=== PATIENT | female | born 1945 | race Caucasian/White ===

== ENCOUNTER → 2016-09-02 | Outpatient (CLI) | payer BC ==
[~2016-09-02] MED LIST: ATV1 PO; EFFSR75 PO; IMD/2 PO; LEVO88TA PO; MULTTAB58 PO; VSC/5 PO; [UNRECOGNIZED DRUG - CODE] PO
== END | disposition home or self-care (01) ==
LOC: C.LABSPEC 13:49
PROVIDERS: ATTEND Surgery
DX: C18.1 Malignant neoplasm of appendix (principal)

== ENCOUNTER → 2016-10-27 | Outpatient (CLI) | payer BC ==
--- NOTE | 2016-10-27 12:47 | MAMMOGRAPHY REPORT ---
BILATERAL DIGITAL SCREENING MAMMOGRAM WITH CAD: 10/27/2016 CLINICAL HISTORY: Routine screening examination. TECHNIQUE: Bilateral CC and MLO views were obtained. Current study was also evaluated with a Comput er Aided Detection (CAD) system. COMPARISON: Comparison is made to exams dated: 10/30/2015 mammogram, 05/06/2016 mammogram, 10/24/2015 mammogram - [facility], 07/15/2010 mammogram - [facility], and 10/19/2013 mammo gram - [facility]. BREAST COMPOSITION: The tissue of both breasts is almost entirely fatty. FINDINGS: There are stable grouped punctate densities in the superior posterior right breast, though t to be related to prior Mediport catheter hub. There are scattered stable benign coarse calcificat ions throughout the left breast. A stable circumscribed sub-centimeter mass in the anterior left br east. No new suspicious mass, architectural distortion or cluster of microcalcifications is seen. IMPRESSION: ACR BI-RADS CATEGORY 1: NEGATIVE There is no mammographic evidence of malignancy. A 1 year screening mammogram is recommended. The p atient will receive written notification of the results. Approximately 10% of breast cancers are not detected with mammography. A negative mammographic repor t should not delay biopsy if a clinically suggestive mass is present. Bryanna Meza M.D. ay/:10/27/2016 12:08:51 Chemical Cell Changer: Deja JAMESON)(Sarah Beth), [facility] letter sent: Normal 1/2 BI-RADS Code: ACR BI-RADS Category 1: Negative
== END | disposition home or self-care (01) ==
LOC: C.MAMM 10:24
PROVIDERS: ATTEND Family Medicine
DX: Z12.31 Encounter for screening mammogram for malignant neoplasm of breast (principal)

== ENCOUNTER → 2017-02-23 | Outpatient (CLI) | payer BC ==
--- NOTE | 2017-02-23 11:02 | DIAGNOSTIC IMAGING REPORT ---
GI SERIES W/AIR ROUTINE CLINICAL HISTORY: 71-year-old female with epigastric pain, EGD with folded stomach, clinical concern for volvulus. TECHNIQUE: A standard air contrast upper GI series was performed. Spot images of the esophagus and stomach were obtained in multiple obliquities both upright and prone. COMPARISON: Correlation made to CT from 2014. FINDINGS: The patient swallowed barium without difficulty. The esophagus is structurally normal without evidence of intrinsic or extrinsic mass. The esophageal mucosal pattern is normal. Gastroesophageal junction located below the diaphragm. No evidence of a hiatal hernia. No gastroesophageal reflux was observed. The gastroesophageal junction distends normally. Oral contrast passes freely to the small bowel without evidence of obstruction. The fundus and pylorus are located normally. Due to early opacification of small bowel, the gastric antrum is not well evaluated. However, the stomach is not dilated an has a normal configuration. No gross evidence of a filling defect within the gastric lumen. The duodenal bulb and sweep are unremarkable. Proximal small bowel normal-appearing. No bowel obstruction. Fluoroscopy time: 3.6 minutes Fluoroscopic images: 28 IMPRESSION: 1. No evidence of gastric volvulus or gastric outlet obstruction. No bowel obstruction. Electronically signed by: Kelvin Urena M.D. 02/23/2017 11:01 AM Dictated Date/Time: 02/23/2017 10:53 AM
== END | disposition home or self-care (01) ==
LOC: C.RAD 08:56
PROVIDERS: ATTEND Internal Medicine Gastroenterology
DX: R10.13 Epigastric pain (principal)

== ENCOUNTER → 2017-05-04 | Outpatient (CLI) | payer BC ==
[~2017-05-04] MED LIST changes: +OPTIRAY 320 IV PRN
--- NOTE | 2017-05-04 14:54 | DIAGNOSTIC IMAGING REPORT ---
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 Subsequent treatment strategy. History of appendiceal carcinoma. COMPARISON: CT abdomen and pelvis 10/23/2014 TECHNIQUE: Multiple axial CT images of the abdomen and pelvis were obtained following the intravenous administration of 119 mL Optiray 320. Oral contrast was also administered. A dose lowering technique was used consistent with the principals of EDWIN. FINDINGS: Subsegmental consolidation with air bronchograms noted within the right middle lobe which is chronic. No endobronchial mass identified. No pneumoperitoneum identified. The imaged inferior cardiac chambers are mildly enlarged. There is decreased attenuation of the liver suggesting fatty infiltration. Multiple low attenuating lesions of the liver are again seen which are unchanged from comparison suggesting cysts. Prior splenectomy and cholecystectomy. The adrenal glands are unremarkable. Multifocal rectal thickening involves left greater than right kidneys. Apparent cyst of the interpolar left kidney is seen, 7 mm. 2 mm nonobstructing calculus is seen within the superior pole right kidney. Ureters are unremarkable. Urinary bladder is partially collapsed. Prior hysterectomy. Abdominal aorta is normal in both course and caliber. No bulky retroperitoneal adenopathy identified. There are multiple postsurgical changes of the bowel with interval removal of the cystic peritoneal lesions seen on comparison. There is no bowel obstruction or focal bowel wall thickening. Scattered nonspecific mildly prominent nonenlarged mesenteric lymph nodes are seen measuring up to 6 mm in short axis. There is a 2.4 x 3.0 cm cystic lesion noted within the lesser sac near the gastrohepatic ligament on image 135 within the region of the previously noted 5.9 cm cystic lesion. Additional cystic focus measuring up to 2.0 cm is noted near the steff hepatis knee were there was a 5.1 cm cystic lesion noted. Lastly, a 2.0 cm cystic lesion seen on image 163 is noted which appears to be based on the peritoneum on the right midabdomen. This lesion is new from comparison. Soft tissues are unremarkable. No suspicious lytic or blastic bony lesions are identified. Multilevel severe degenerative changes are seen. Approximately 40% anteriorly compression deformity is seen within the T10 vertebral body with additional compression deformities of T7, T8 and T12, unchanged from comparison. IMPRESSION: 1. Extensive postsurgical changes throughout the abdomen and pelvis with interval removal of several of the previously noted cystic lesions throughout the abdomen. Residual or new cystic lesions are seen within the upper abdomen as described above measuring up to 3.0 cm with new 2.0 cm peritoneal lesion of the right midabdomen. These lesions are very suspicious for metastatic peritoneal implants. 2. No bowel obstruction. 3. Scattered mildly prominent nonenlarged mesenteric lymph nodes are nonspecific. Attention at follow-up recommended. 4. 2 mm nonobstructing calculus of the superior pole right kidney. The above report was generated using voice recognition software. It may contain grammatical, syntax or spelling errors. Electronically signed by: Vinnie Thapa M.D. 05/04/2017 2:53 PM Dictated Date/Time: 05/04/2017 2:37 PM
--- NOTE | 2017-05-04 14:55 | DIAGNOSTIC IMAGING REPORT ---
CHEST CT WITH CONTRAST CT DOSE: 1169.06 mGycm HISTORY: MUCINOUS ADENOCARCINOMA GASTROINTESTINAL TRACT TECHNIQUE: Multiaxial CT images of the chest were performed following the intravenous administration of contrast. A dose lowering technique was utilized adhering to the principles of ALARA. COMPARISON: Chest CTA 06/15/2016. FINDINGS: The central airways remain patent. No pleural effusions. No pneumothorax. Small linear scarlike density within the left lung apex. Stable 2 mm subpleural nodular density within the right lung apex. Elevation of the right hemidiaphragm with partial atelectasis of the right middle lobe, unchanged. Stable 2 mm nodule within the right lower lobe on image 112. No new or suspicious pulmonary nodules identified. No suspicious lytic or blastic osseous lesions. Stable hypodense lesion within the left hepatic lobe. The adrenal glands are within normal limits. Stable 12 mm left subdiaphragmatic soft tissue nodule. The spleen appears to be surgically absent. Partially visualized perihepatic cystic lesions are better appreciated on the same day abdomen and pelvis CT. The dominant lesion adjacent to the left hepatic lobe and stomach measures 3.2 cm. There is a second 2.4 cm lesion seen at the falciform ligament. Small thyroid nodules. No mediastinal or hilar lymphadenopathy. The central pulmonary arteries are patent. Normal caliber thoracic aorta. IMPRESSION: 1. No evidence for metastatic disease within the chest. 2. Low density upper abdominal masses are better appreciated on the same day abdomen and pelvis CT. These likely represent areas of metastatic disease. 3. No significant change in the 12 mm left subdiaphragmatic soft tissue nodule. This could represent splenic tissue or an additional metastatic deposit. Electronically signed by: Abraham Purdy M.D. 05/04/2017 2:53 PM Dictated Date/Time: 05/04/2017 2:43 PM
== END | disposition home or self-care (01) ==
LOC: C.CTS 13:29
PROVIDERS: ATTEND Nurse Practitioner Family
DX: C26.0 Malignant neoplasm of intestinal tract, part unspecified (principal); R19.07 Generalized intra-abdominal and pelvic swelling, mass and lump; N20.0 Calculus of kidney; Z98.890 Other specified postprocedural states

== ENCOUNTER → 2017-08-16 | Outpatient (CLI) | payer BC ==
[~2017-08-16] MED LIST changes: -OPTIRAY 320 IV PRN
--- NOTE | 2017-08-16 16:03 | DIAGNOSTIC IMAGING REPORT ---
L-SPINE MIN 4 VIEWS ROUTINE CLINICAL HISTORY: BACK PAIN COMPARISON STUDY: CT scan dated 06-25 FINDINGS: There are extensive postsurgical changes present with multiple bowel suture lines. There is a lumbar dextroscoliosis. There are moderate multilevel degenerative changes present. There is a mild superior endplate L4 deformity which is felt to be old. There is a grade 1 spinal listhesis of L5 on S1. Multiple thoracic compression deformities are visualized. These are felt to be old. IMPRESSION: 1. No acute fractures 2. Multilevel degenerative change 3. Old mild superior endplate L4 compression deformity with marked disc space narrowing at the L3-4 level 4. Multiple old thoracic vertebral body compression deformities Electronically signed by: Justice Mcclure M.D. 08/16/2017 4:02 PM Dictated Date/Time: 08/16/2017 4:01 PM
== END | disposition home or self-care (01) ==
LOC: C.RAD1850 15:25
PROVIDERS: ATTEND Family Medicine
DX: M54.5 Low back pain (principal); M89.8X8 Other specified disorders of bone, other site; M51.36 Other intervertebral disc degeneration, lumbar region

== ENCOUNTER → 2017-10-26 | Outpatient (CLI) | payer BC ==
[~2017-10-26] MED LIST changes: +OPTIRAY 320 IV PRN
--- NOTE | 2017-10-26 15:10 | DIAGNOSTIC IMAGING REPORT ---
CHEST CT WITH CONTRAST CT DOSE: 990.19 mGy.cm HISTORY: Follow-up study in a patient with history of appendiceal carcinoma APPENDIX CA TECHNIQUE: Multiaxial CT images of the chest were performed following the intravenous administration of contrast. A dose lowering technique was utilized adhering to the principles of ALARA. COMPARISON: CT chest 05/04/2017, CT abdomen and pelvis of same day FINDINGS: Thyroid is heterogeneous with a 1.3 cm nodule seen within the region of the anterior right thyroid lobe containing adjacent punctate calcifications. There is no pathologic adenopathy about the chest. Heart is normal in size without pericardial effusion. Thoracic aorta is normal in both course and caliber without aneurysm or dissection. The imaged great vessels appear to be patent. The pulmonary arterial tree is unremarkable. Mild upper lobe predominant centrilobular emphysema. No pneumothorax or pleural effusion. There is mild dependent subsegmental bibasilar atelectasis. Linear subsegmental opacities of the inferior segment lingula and right middle lobe suggest areas of scarring/atelectasis. Indeterminate 3 mm pleural-based nodule of the lateral basal left lower lobe, image 1 series 4 appears unchanged. 2 mm solid nodule of the apical segment right upper lobe is also unchanged. 2 mm nodule of the right middle lobe, image 133 series 4 is stable. No new or suspicious pulmonary nodules identified. The central airways appear patent. Several low attenuating lesions of the upper abdomen are seen with a 3.3 cm lesion adjacent to the gastrohepatic ligament and a 2.2 cm lesion adjacent to the falciform ligament, unchanged. 12 mm left subdiaphragmatic lesion is also noted. Soft tissues are within normal limits. Unchanged sclerotic lesion about the right humeral head. No new suspicious bony lesions identified. Remote compression deformities about the thoracic spine. IMPRESSION: 1. Mild emphysema without acute intrathoracic abnormality identified. 2. No pathologic adenopathy or evidence of intrathoracic metastasis. 3. A few scattered solid nodules of the bilateral lungs measuring up to 4 mm appear unchanged from study dated 05/04/2017. 4. Low attenuating lesions of the upper abdomen are again noted, further evaluated and described on CT abdomen and pelvis study of same day. Electronically signed by: Vinnie Thapa M.D. 10/26/2017 3:09 PM Dictated Date/Time: 10/26/2017 3:00 PM
--- NOTE | 2017-10-26 15:15 | DIAGNOSTIC IMAGING REPORT ---
CT ABD/PELVIS IV AND ORAL CONT CLINICAL HISTORY: CANCER OF THE APPENDIX COMPARISON STUDY: 06-25 TECHNIQUE: Following the IV administration of 94 mL of Optiray-320, CT scan of the abdomen and pelvis was performed from the lung bases to the proximal femurs. Images are reviewed in the axial, sagittal, and coronal planes. IV contrast was administered without complication. A dose lowering technique was utilized adhering to the principles of ALARA. CT DOSE: FINDINGS: Lower chest: There are right middle lobe atelectatic changes. There are no significant pleural effusions. Liver: There is an 11 mm left lobe hypodensity similar to the prior study. There is a 24 mm left lobe hypodensity abutting the gallbladder fossa. There is an additional 19 mm hypodense/cystic lesion within the steff hepatis abutting the liver. Gallbladder: Surgically absent Spleen: Presumed surgically absent Pancreas: Unremarkable. Adrenal glands: Unremarkable. Kidneys: There is symmetric renal cortical enhancement. The kidneys are normal in size without hydronephrosis. There is a punctate upper pole right renal calculus. Bowel: There are no transition zones indicate bowel obstruction. Postsurgical changes are present within the rectosigmoid junction. The appendix is surgically absent. There are postsurgical changes involving the stomach. There is an area of bowel wall thickening within the anterior central abdomen at the level of a small bowel anastomosis. Peritoneum: There is a 13 mm left-sided subdiaphragmatic nodule which remain stable. There is an enlarging 42 mm hypodense mass in the region the gastrohepatic ligament. Vasculature: The abdominal aorta is normal in course and caliber. Adenopathy: There is an 11 mm soft tissue nodule located in the midline medially posterior to the peritoneum. This may represent an enlarged lymph node. There is a mildly enlarged right-sided mesenteric lymph node measuring 14 mm. Pelvic viscera: The uterus appears surgically absent Skeletal structures: No destructive osseous lesions are seen. IMPRESSION: 1. No evidence of bowel obstruction. No evidence of free air 2. Extensive postsurgical changes 3. Area of bowel wall thickening involving an anterior mid abdominal small bowel anastomosis 4. Enlarging hypodense/cystic mass in the region of the gastrohepatic ligament measuring 42 mm 5. Hypodense/cystic lesions within the liver and steff hepatis appear more conspicuous. 6. Stable left subdiaphragmatic nodule 7. Stable minimally enlarged mesenteric/peritoneal lymph nodes 8. The above findings indicate slight progression in the patient's metastatic disease Electronically signed by: Justice Mcclure M.D. 10/26/2017 3:13 PM Dictated Date/Time: 10/26/2017 3:00 PM
== END | disposition home or self-care (01) ==
LOC: C.CTS 12:57
PROVIDERS: ATTEND Surgery
DX: K63.89 Other specified diseases of intestine (principal); R19.07 Generalized intra-abdominal and pelvic swelling, mass and lump; K76.89 Other specified diseases of liver; R91.8 Other nonspecific abnormal finding of lung field; Z98.890 Other specified postprocedural states

== ENCOUNTER 2017-11-12 12:05 | Emergency (ER) | payer BC ==
[~2017-11-12] VITALS: Ht 160 cm; Wt 79.9 kg
[~2017-11-12 12:05] MED LIST changes: -OPTIRAY 320 IV PRN
[2017-11-12 12:12] VITALS: TEMP 36.5
[2017-11-12] MEDS ORDERED: ONDANSETRON INJ 2 MG/ML 2 ML VIAL IV STA ×3 (13:11→22:59)
[2017-11-12] MEDS ORDERED: SODIUM CHLORIDE 0.9% 1000ML 1,000 ML IV STA ×3 (13:11→21:47)
[2017-11-12 13:14] VITALS: Ht 160 cm; Wt 79.9 kg
--- NOTE | 2017-11-12 13:16 | EMERGENCY ROOM VISIT NOTE ---
History Report prepared by Cirilo: Randy Villegas Under the Supervision of: Dr. Sina Buckner D.O. First contact with patient: 13:06 Chief Complaint: ABDOMINAL PAIN Stated Complaint: STOMACH PAIN, SENT BY DR Seo Triage Summary: triage note: pt reports that pt has had abd pain since last night. pt reports nausea. 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 She states that at the same time, she also started getting some nausea, and episodes of vomiting. The patient says that she has been coughing as well. She adds that she has been getting winded when she walks. Per the patient's , the patient was seen by Dr. Alva (her primary care physician) this morning, and was told to bring the patient here for concern of possible UTI and dehydration. The patient adds that she started having diarrhea this morning. She denies any blood in her vomit, blood in her stool, or burning with urination. She notes that her legs have been restless, but she denies any leg pain or swelling. The patient denies any fevers. Per the patient's , the patient only has 60% of her bowel. Source of History: patient, spouse/significant other Onset: 1700 yesterday Position: abdomen Quality: other (pain) Timing: other (persistent) Associated Symptoms: + cough, + SOB, + nausea, + vomiting (no blood), + hematochezia, + diarrhea, No fevers, No urinary symptoms Note: Denies leg pain or swelling but notes restlessness. Review of Systems See HPI for pertinent positives & negatives. A total of 10 systems reviewed and were otherwise negative. Past Medical & Surgical Medical Problems: (1) Appendiceal carcinoid tumor (2) Benign hypertension (3) Chemotherapy adverse reaction (4) Depression (5) Rios Catheter (6) Hysterectomy Family History No pertinent family history Social History Smoking Status: Never Smoker Alcohol Use: none Marital Status: Housing Status: lives with family Current/Historical Medications Scheduled Hyoscyamine Sulfate (Levsin), 0.125 MG PO QID Levothyroxine Sodium (Levothyroxine Sodium), 1 TAB PO DAILY Mirabegron (Myrbetriq Er), 1 TAB PO DAILY Venlafaxine Hcl (Effexor), 2 TAB PO BID Scheduled PRN Clonazepam (Clonazepam), 1 TAB PO HS PRN for Anxiety/Agitation Lorazepam (Lorazepam), 1 TAB PO BID PRN for Anxiety/Agitation Allergies Coded Allergies: Oxycodone (Unverified Allergy, Intermediate, SHORTNESS OF BREATH, 11/12/17) hallucinations Ethanol (Verified Adverse Reaction, Intermediate, hallucinate, 11/12/17) Opium (Verified Adverse Reaction, Intermediate, hallucinate, 11/12/17) Physical Exam Vital Signs Date Time Temp Pulse Resp B/P (MAP) Pulse Ox O2 Delivery O2 Flow Rate FiO2 11/13/17 11:00 69 18 159/97 98 11/13/17 08:53 62 20 155/88 97 Nasal Cannula 2.0 11/13/17 08:01 70 17 170/104 100 Room Air 11/13/17 07:05 72 11/13/17 07:01 80 18 156/97 98 Oxymask 2.0 11/13/17 06:30 81 15 99 Oxymask 2.0 11/13/17 06:01 84 15 154/95 87 11/13/17 06:01 154/95 11/13/17 06:00 88 16 11/13/17 05:30 73 17 11/13/17 05:01 140/91 11/13/17 05:00 75 16 11/13/17 04:30 82 19 91 Nasal Cannula 2.0 11/13/17 04:01 153/101 11/13/17 04:00 81 18 11/13/17 03:30 79 15 99 Nasal Cannula 2.0 11/13/17 03:22 67 11/13/17 03:01 151/84 11/13/17 03:00 82 19 149/87 90 Room Air 11/13/17 02:36 73 20 91 Room Air 11/13/17 02:31 149/83 11/13/17 02:06 70 18 93 Room Air 11/13/17 02:01 178/101 11/13/17 01:36 71 16 91 Room Air 11/13/17 01:31 135/94 11/13/17 00:36 72 16 92 Room Air 11/13/17 00:31 182/98 11/13/17 00:06 84 21 91 Room Air 11/13/17 00:01 179/107 11/12/17 23:46 71 18 91 Room Air 11/12/17 23:31 171/127 11/12/17 23:16 82 16 11/12/17 23:05 81 11/12/17 23:01 175/109 11/12/17 22:46 81 19 97 Room Air 11/12/17 22:41 82 15 95 Room Air 11/12/17 22:31 179/106 11/12/17 22:01 156/112 11/12/17 21:41 65 15 92 Room Air 11/12/17 21:36 67 16 92 Room Air 11/12/17 21:31 164/106 11/12/17 21:01 153/102 11/12/17 20:36 87 16 92 Room Air 11/12/17 20:31 165/109 11/12/17 20:10 78 17 96 Room Air 11/12/17 20:01 148/98 11/12/17 19:56 74 11/12/17 19:31 161/109 11/12/17 19:10 84 13 96 Room Air 11/12/17 19:09 83 16 176/99 96 Room Air 11/12/17 17:55 75 96 11/12/17 17:50 75 95 11/12/17 17:45 82 95 11/12/17 17:20 19 11/12/17 17:15 79 27 94 11/12/17 17:10 74 16 90 11/12/17 17:05 72 21 93 11/12/17 17:01 171/103 11/12/17 17:00 71 24 87 11/12/17 16:55 68 26 93 18 16:50 68 15 90 18 16:45 70 18 92 18 16:40 69 19 94 18 16:35 68 25 93 18 16:31 172/95 18 16:30 70 24 93 18 16:25 78 29 93 18 16:20 75 29 92 11/12/17 16:15 78 23 165/94 94 18 16:10 73 18 94 11/12/17 16:05 75 19 93 11/12/17 16:00 76 28 95 11/12/17 15:55 84 20 97 11/12/17 15:10 75 22 95 11/12/17 15:05 85 19 96 11/12/17 14:50 66 18 93 11/12/17 14:35 66 16 93 11/12/17 14:20 70 34 97 11/12/17 14:06 72 11/12/17 14:05 70 25 97 11/12/17 13:50 68 20 96 11/12/17 13:37 141/93 11/12/17 13:35 76 20 11/12/17 13:20 138/91 11/12/17 13:19 85 20 138/91 97 Room Air 11/12/17 12:12 36.5 93 18 91/63 97 Room Air Physical Exam GENERAL: Patient is awake, alert, mildly anxious appearing. EYES: The conjunctivae are clear. The pupils are round and reactive. EARS, NOSE, MOUTH AND THROAT: The nose is without any evidence of any deformity. Mucous membranes are dry tongue is midline NECK: The neck is nontender and supple. RESPIRATORY: Normal respiratory effort is noted there is no evidence of wheezing rhonchi or rales CARDIOVASCULAR: Heart sounds were tachycardic but regular. No definite murmur was noted to auscultation. GASTROINTESTINAL: The abdomen is moderately distended and diffusely tender. No guarding or rigidity noted. BACK: There is bilateral CVA tenderness to percussion but no midline tenderness. MUSCULOSKELETAL/EXTREMITIES: There is no evidence of gross deformity full range of motion is noted in the hips and shoulders SKIN: There is no pedal edema noted. NEUROLOGIC: Patient is awake alert and oriented x3. Medical Decision & Procedures ER Provider Diagnostic Interpretation: Radiology results as stated below per my review and radiologist interpretation: CHEST ONE VIEW PORTABLE CLINICAL HISTORY: 72 years-old Female presenting with EVALUATE ALTERED MENTAL STATUS/WEAKNESS. TECHNIQUE: Portable upright AP view of the chest was obtained. COMPARISON: 06/15/[address] from 10/26/2017. FINDINGS: The patient is MOZAMBICAN rotated. Atherosclerosis of the aortic arch. Cardiac silhouette normal in size allowing for rotation. Chronic elevation of the right hemidiaphragm with chronic right basilar bandlike opacities. No new focal opacity. No large effusion or pneumothorax. Stippled calcification again noted in the right humeral neck, possibly a chondroid lesion. This is unchanged from prior. Degenerative changes of the spine. Cholecystectomy clips noted. IMPRESSION: 1. No acute cardiopulmonary disease. 2. Chronic right basilar atelectasis or scarring. Electronically signed by: Kelvin Urena M.D. 11/12/2017 2:15 PM Dictated Date/Time: 11/12/2017 2:13 PM KUB HISTORY: Vomiting. COMPARISON: Chest and abdominal series 12/30/2014. Abdomen and pelvis CT 10/26/2017. FINDINGS: Cholecystectomy. Scattered areas of an anastomotic suture material within the abdomen and pelvis consistent with postoperative change. Distended gas-filled loops of small bowel within the mid and left abdomen. These measure up to 5.7 cm in diameter. Gas and stool remains within the colon. No renal calculi. No ureteral calculi. No pneumoperitoneum or pneumatosis. IMPRESSION: Distended gas-filled loops of small bowel within the abdomen. This is worrisome for a small bowel obstruction. Electronically signed by: Abraham Purdy M.D. 11/12/2017 2:17 PM Dictated Date/Time: 11/12/2017 2:15 PM ABD/PELVIS IV CONTRAST ONLY CLINICAL HISTORY: 72 years-old Female presenting with possible obstruction, cancer of the appendix. TECHNIQUE: Multidetector CT of the abdomen and pelvis was performed after the administration of intravenous contrast. IV contrast: 23 mL of Optiray 320. A dose lowering technique was used consistent with the principles of ALARA (as low as reasonably achievable). COMPARISON: 10/26/2017. CT DOSE (mGy.cm): The estimated cumulative dose is 994.54 mGycm. FINDINGS: Sales Route Driver topogram: Cholecystectomy clips noted. Lung bases: Minimal basilar opacities, likely atelectasis. Normal heart size. No pericardial or pleural effusion. Liver: Normal morphology. Suggestion of hepatic steatosis. Several hypodense hepatic lesions noted in the medial left hepatic lobe, unchanged from prior and indeterminate. Patent hepatic vasculature. Biliary: Mild biliary ductal prominence likely a reservoir effect in the post cholecystectomy state. Gallbladder surgically absent. Pancreas: Mild parenchymal atrophy of the residual pancreatic head with postsurgical changes of distal pancreatectomy. Spleen: Surgically absent. Adrenal glands: Normal. Kidneys and ureters: Multifocal cortical atrophy suggested. Nonobstructing punctate calculus at the upper pole the right kidney. Mild to moderate pelvocaliectasis, new from prior. Bilateral ureters are mildly dilated to the level of the mid ureter. Bladder: Distended. Pelvic organs: Uterus surgically absent. No adnexal masses. Bowel: Moderate stool burden in the rectum. A colocolonic anastomosis is noted at the upper rectum. Mild stool burden throughout the remaining colon. Postsurgical changes of the cecum. The distal small bowel is decompressed. An enterocolonic anastomosis may be present. Postsurgical changes of the small bowel mesentery. A gastrojejunostomy is evident with post surgical changes of distal gastrectomy. The distal small bowel anastomosis is noted in the left mid abdomen and is grossly normal appearing. However, abnormal gaseous distention of the pancreaticobiliary limb to the level of the distal small bowel anastomosis. This suggests a site of transition point, possibly due to anastomotic stenosis or adhesions. Peritoneal cavity: No free fluid or intraperitoneal gas. Redemonstration of the cystic appearing lesion in the distal gastrectomy and pancreatectomy bed, which now measures 3.5 cm in diameter, grossly unchanged from prior. The 10 mm left subdiaphragmatic low-density nodule in the suprarenal fossa (series 3 image 66) is grossly unchanged. Lymph nodes: No enlarged lymph nodes in the abdomen or pelvis. Vasculature: Aorta and IVC patent and normal in caliber. Abdominal wall: Postsurgical changes of the midline ventral abdomen with a well-healed surgical scar. No associated fluid. Musculoskeletal: Degenerative changes of the spine. IMPRESSION: 1. Postsurgical changes of Billroth II procedure with a patent gastrojejunostomy. However, abnormal distention of the pancreaticobiliary limb with suspected obstruction at the distal small bowel anastomosis. This may be due to anastomotic stenosis or adhesions. This was at the previously noted site of bowel wall thickening. 2. No significant change in the cystic lesion/collection in the distal pancreatectomy bed and low-density left subdiaphragmatic nodule. As the previous metastatic disease appeared similarly on prior CT from 10/23/2014, these remain suspicious for metastatic deposits. 3. Stable hypodense lesions in the liver, previously characterized as cysts. 4. Hepatic steatosis. 5. Interval development of bilateral hydronephrosis. This may in part be due to distention of the bladder. If there is clinical concern, ultrasound of the kidneys could be performed after voiding 2 evaluate for resolution. 6. Electronically signed by: Kelvin Urena M.D. 11/12/2017 4:06 PM Dictated Date/Time: 11/12/2017 3:52 PM Laboratory Results 11/13/17 06:13 Red Blood Count 3.50, Mean Corpuscular Volume 77.7, Mean Corpuscular Hemoglobin 22.9, Mean Corpuscular Hemoglobin Concent 29.4, Mean Platelet Volume 9.7, Neutrophils (%) (Auto) 74.4, Lymphocytes (%) (Auto) 15.1, Monocytes (%) (Auto) 9.7, Eosinophils (%) (Auto) 0.2, Basophils (%) (Auto) 0.2, Neutrophils # (Auto) 6.36, Lymphocytes # (Auto) 1.29, Monocytes # (Auto) 0.83, Eosinophils # (Auto) 0.02, Basophils # (Auto) 0.02 11/13/17 06:13 Test 11/12/17 13:35 11/12/17 13:44 11/12/17 15:20 11/13/17 06:13 Anisocytosis PRESENT Prothrombin Time 11.4 SECONDS (9.0-12.0) Prothromb Time International Ratio 1.1 (0.9-1.1) Activated Partial Thromboplast Time 23.3 SECONDS (21.0-31.0) Partial Thromboplastin Ratio 0.9 Magnesium Level 2.1 mg/dl (1.8-2.4) Troponin I < 0.015 ng/ml (0-0.045) Thyroid Stimulating Hormone (TSH) 0.701 uIu/ml (0.300-4.500) Bedside Lactic Acid Venous 1.67 mmol/L (0.90-1.70) Urine Color YELLOW Urine Appearance CLOUDY (CLEAR) Urine pH 7.0 (4.5-7.5) Urine Specific [place] 1.013 (1.000-1.030) Urine Protein NEG (NEG) Urine Glucose (UA) TRACE (NEG) Urine Ketones NEG (NEG) Urine Occult Blood NEG (NEG) Urine Nitrite NEG (NEG) Urine Bilirubin NEG (NEG) Urine Urobilinogen NEG (NEG) Urine Leukocyte Esterase TRACE (NEG) Urine WBC (Auto) 1-5 /hpf (0-5) Urine RBC (Auto) 10-30 /hpf (0-4) Urine Hyaline Casts (Auto) 1-5 /lpf (0-5) Urine Epithelial Cells (Auto) >30 /lpf (0-5) Urine Bacteria (Auto) NEG (NEG) Urine Crystals CALCIUM OXALATE (NONE Urine Pathogenic Casts /lpf (0) White Blood Count 8.55 K/uL (4.8-10.8) Red Blood Count 3.50 M/uL (4.2-5.4) Hemoglobin 8.0 g/dL (12.0-16.0) Hematocrit 27.2 % (37-47) Mean Corpuscular Volume 77.7 fL (80-100) Mean Corpuscular Hemoglobin 22.9 pg (25-34) Mean Corpuscular Hemoglobin Concent 29.4 g/dl (32-36) Platelet Count 515 K/uL (130-400) Mean Platelet Volume 9.7 fL (7.4-10.4) Neutrophils (%) (Auto) 74.4 % Lymphocytes (%) (Auto) 15.1 % Monocytes (%) (Auto) 9.7 % Eosinophils (%) (Auto) 0.2 % Basophils (%) (Auto) 0.2 % Neutrophils # (Auto) 6.36 K/uL (1.4-6.5) Lymphocytes # (Auto) 1.29 K/uL (1.2-3.4) Monocytes # (Auto) 0.83 K/uL (0.11-0.59) Eosinophils # (Auto) 0.02 K/uL (0-0.5) Basophils # (Auto) 0.02 K/uL (0-0.2) RDW Standard Deviation 50.9 fL (36.4-46.3) RDW Coefficient of Variation 17.9 % (11.5-14.5) Immature Granulocyte % (Auto) 0.4 % Immature Granulocyte # (Auto) 0.03 K/uL (0.00-0.02) Nucleated RBC Absolute Count (auto) 0.02 K/uL (0-0) Nucleated Red Blood Cells % 0.2 % Hypochromasia PRESENT Microcytosis PRESENT Target Cells 1+ Anion Gap 7.0 mmol/L (3-11) Est Creatinine Clear Calc Drug Dose 42.6 ml/min Estimated GFR () 53.7 Estimated GFR (Non- 46.3 BUN/Creatinine Ratio 14.7 (10-20) Calcium Level 8.5 mg/dl (8.5-10.1) Total Bilirubin 1.0 mg/dl (0.2-1) Direct Bilirubin 0.6 mg/dl (0-0.2) Aspartate Amino Transf (AST/SGOT) 195 U/L (15-37) Alanine Aminotransferase (ALT/SGPT) 109 U/L (12-78) Alkaline Phosphatase 293 U/L (45-117) Total Protein 7.1 gm/dl (6.4-8.2) Albumin 2.5 gm/dl (3.4-5.0) Lipase 898 U/L (73-393) Date/Time Source Procedure Growth Status 11/12/17 15:20 Urine , Clean Catch Urine Culture - Final MORE THAN THREE TYPES OF ORGANISMS AK... Complete Laboratory results per my review. Medications Administered Medications (Trade) Dose Ordered Sig/Mauricio Route Start Time Stop Time Status Last Admin Dose Admin Ondansetron HCl (Zofran Inj) 4 mg NOW STAT IV 11/12/17 13:11 11/12/17 13:14 DC 11/12/17 13:41 4 MG Sodium Chloride 1,000 ml @ 999 mls/hr Q1H1M STAT IV 11/12/17 13:11 11/12/17 14:11 DC 11/12/17 13:25 999 MLS/HR Sodium Chloride 1,000 ml @ 999 mls/hr Q1H1M STAT IV 11/12/17 15:03 11/12/17 16:03 DC 11/12/17 15:24 999 MLS/HR Fentanyl Citrate (Fentanyl Inj) 50 mcg Q15M PRN IV 11/12/17 20:30 11/13/17 11:21 DC 11/13/17 01:24 50 MCG Ondansetron HCl (Zofran Inj) 4 mg NOW STAT IV 11/12/17 20:17 11/12/17 20:19 DC 11/12/17 20:27 4 MG Piperacillin Sod/ Tazobactam Sod (Zosyn Iv) 4.5 gm NOW STAT IV 11/12/17 21:47 11/12/17 21:49 DC 11/12/17 21:59 4.5 GM Sodium Chloride 1,000 ml @ 125 mls/hr Q8H STAT IV 11/12/17 21:47 11/13/17 05:46 DC 11/12/17 21:59 125 MLS/HR Metoclopramide HCl (Reglan Inj) 10 mg NOW STAT IV 11/12/17 21:47 11/12/17 21:49 DC 11/12/17 21:59 10 MG Vancomycin HCl (Vancomycin 1gm Ed/Asu Omnicell) 1 gm STK-MED ONCE .ROUTE 11/12/17 21:56 11/12/17 21:57 DC 11/12/17 21:59 1 GM Lorazepam (Ativan Inj) 0.5 mg NOW STAT IV 11/12/17 22:29 11/12/17 22:30 DC 11/12/17 22:45 0.5 MG Ondansetron HCl (Zofran Inj) 4 mg NOW STAT IV 11/12/17 22:59 11/12/17 23:00 DC 11/12/17 23:06 4 MG Promethazine HCl 25 mg/Sodium Chloride 51 ml @ 204 mls/hr NOW STAT IV 11/13/17 00:07 11/13/17 00:21 DC 11/13/17 00:22 204 MLS/HR Oxymetazoline HCl (Afrin 0.05% Nasal Simms) 75 sprays STK-MED ONCE .ROUTE 11/13/17 03:37 11/13/17 03:38 DC 11/13/17 03:37 75 SPRAYS Lorazepam (Ativan Inj) 0.5 mg NOW STAT IV 11/13/17 03:39 11/13/17 03:40 DC 11/13/17 03:43 0.5 MG Potassium Chloride/Dextrose/ Sod Cl 1,000 ml @ 100 mls/hr Q10H STAT IV 11/13/17 07:50 11/13/17 11:21 DC 11/13/17 08:10 100 MLS/HR ECG Per My Interpretation Indication: abdominal pain Rate (beats per minute): 86 Rhythm: normal sinus Findings: T-wave inversion (anterior and inferior), no ectopy Change: no significant change (from 06/15/16) ED Course 1310: The patient was evaluated in room C1B. A complete history and physical examination were performed. 1311: NSS 1000 ml @ 999 mls/hr IV, Zofran Inj 4 mg IV. 1458: I reevaluated the patient. Her rectal exam revealed light brown stool that was trace heme-positive. 1502: I reevaluated the patient and told her that she will got to CT because her x-ray was abnormal. 1503: NSS 1000 ml @ 999 mls/hr IV. 1558: Upon reevaluation, the patient is resting. I discussed results and treatment plan with her. She verbalizes agreement and understanding. The patient will be evaluated for further management and care. 1602: I discussed the patient with Margret GARCIA. She will evaluate the patient for further treatment. 1612: I discussed the patient with Micaela Velázquez general surgery. 1655: I reevaluated the patient and informed her that she will be transferred to further evaluation and treatment. She agrees with this plan. 1702: I discussed the patient with Dr. Menendez - surgical oncologist - [facility] - he accepts the patient in transfer. 2015: A helicopter is being sent to take the patient. Medical Decision Differential diagnosis: Etiologies such as appendicitis, diverticulitis, PUD, biliary pathology, UTI, pancreatitis, obstruction, mesenteric ischemia, aortic pathology, infections, inflammatory bowel disease, renal colic, as well as others were entertained. Nursing notes reviewed. Additional history is obtained for the patient's . The patient is a 72-year-old female who presented to the emergency department for an episode of nausea vomiting. The patient also noticed light colored stool. The patient has a history significant for metastatic carcinoid tumor. She states that she has not had any recent therapy for this. I reviewed the patient's previous records shows that she had a CAT scan on October 26 of this year which did reveal some recurrence and metastatic processes. I discussed patient's laboratory and radiographic studies with her. She was treated with IV fluids IV pain medicine and IV anti-medics. She was also treated with IV antibiotics. Her condition significantly improved. She was found to have signs of bowel obstruction and GI bleeding. I discussed her case with the on- call [facility] hospitalist as well as the on-call general surgery group. The patient was evaluated by the general surgery group in the emergency department but they felt her condition may warrant transfer to a tertiary center. When I discussed this with the patient she was to be transferred to [facility] because her oncologic surgeon was very familiar with her condition. I discussed her case with her primary oncologic surgeon he was agreeable to accept the patient in transfer. I was informed after I filled out all the transfer paperwork that the patient would not be able to be transferred till the morning because of lack of prehospital personnel. I discussed her condition with the transfer center at [facility] and recommended that we send the patient by helicopter but they were unable to send a helicopter. I asked him to send a ground crew with [employer]. I discussed this case again with the [facility] hospitalist group. This time it was the night hospitalist. Again he was agreeable to accept this patient for admission because of her condition pending transfer but because surgery was not able to follow the patient he felt the best course would be to keep the patient in the emergency department until transfer could occur. The patient was signed out to Dr. Arredondo at change of shift. Please see his note for continuation of care. Medication Reconcilliation Current Medication List: was personally reviewed by me Blood Pressure Screening Patient's blood pressure: Low blood pressure Consults Time Called: 1600 Consulting Physician: Margret GARCIA Returned Call: 1602 I discussed the patient with Margret GARCIA. She will evaluate the patient for further treatment. Additional Consults: Time Called: 1610 Consulted Physician: Micaela Vasquez PA-C [facility] general surgery Returned Call: 1612 Additional Comments: I discussed the patient with Micaela Velázquez general surgery. Time Called: 1650 Consulted Physician: Dr. Menendez - surgical oncologist - [facility] Returned Call: 1702 Additional Comments: I discussed the patient with Dr. Menendez - surgical oncologist - [facility] - he accepts the patient in transfer. Impression Primary Impression: SBO (small bowel obstruction) Additional Impressions: GI bleeding Anemia Nausea & vomiting Hypotension Scribe Attestation The scribe's documentation has been prepared under my direction and personally reviewed by me in its entirety. I confirm that the note above accurately reflects all work, treatment, procedures, and medical decision making performed by me. Departure Information Dispostion Transfer Acute Care Facility (to [facility]) Referrals Ghassan Alva M.D. (PCP) Patient Instructions My [facility] Problem Qualifiers Additional Impressions: GI bleeding GI bleed type/associated pathology: unspecified gastrointestinal hemorrhage type Qualified Codes: K92.2 - Gastrointestinal hemorrhage, unspecified Anemia Anemia type: unspecified type Qualified Codes: D64.9 - Anemia, unspecified Nausea & vomiting Vomiting type: unspecified Vomiting Intractability: non-intractable Qualified Codes: R11.2 - Nausea with vomiting, unspecified Hypotension Hypotension type: unspecified hypotension type Qualified Codes: I95.9 - Hypotension, unspecified
[2017-11-12 14:01] LABS: HEMATOCRIT 28.2 % (37-47); HEMOGLOBIN 8.4 g/dL (12.0-16.0); MEAN CORPUSCULAR HEMOGLOBIN 22.6 pg (25-34); MEAN CORPUSCULAR HGB CONC 29.8 g/dl (32-36); MEAN PLATELET VOLUME 9.3 fL (7.4-10.4); PLATELET COUNT 608 K/uL (130-400); RED CELL DISTRIBUTION WIDTH CV 17.8 % (11.5-14.5); RED CELL DISTRIBUTION WIDTH SD 49.5 fL (36.4-46.3); WHITE BLOOD COUNT 10.72 K/uL (4.8-10.8)
[2017-11-12 14:04] LABS: INR 1.1 (0.9-1.1); PTT PATIENT 23.3 SECONDS (21.0-31.0)
[2017-11-12 14:12] LABS: ALBUMIN 3.1 gm/dl (3.4-5.0); ALT/SGPT 118 U/L (12-78); AST/SGOT 264 U/L (15-37); BLOOD UREA NITROGEN 23 mg/dl (7-18); CALCIUM 8.8 mg/dl (8.5-10.1); CARBON DIOXIDE 26 mmol/L (21-32); GLUCOSE 139 mg/dl (70-99); LIPASE 961 U/L (73-393); POTASSIUM 3.7 mmol/L (3.5-5.1); SODIUM 134 mmol/L (136-145)
[2017-11-12] MEDS ORDERED: HYOS1TAB PO (14:12)
[2017-11-12] MEDS ORDERED: MIRA100T PO (14:12)
[2017-11-12] MEDS ORDERED: KLN5X PO (14:12)
[2017-11-12] MEDS ORDERED: LEVO100T7 PO (14:12)
[2017-11-12] MEDS ORDERED: VENL100T2 PO (14:12)
[2017-11-12] MEDS ORDERED: ATV1 PO (14:12)
[2017-11-12 14:15] LABS: BASO % 0.2 %; BASO ABS # 0.02 K/uL (0-0.2); EOS % 0.1 %; EOS ABS # 0.01 K/uL (0-0.5); IG# 0.03 K/uL (0.00-0.02); LYMPH % 7.9 %; LYMPH ABS # 0.85 K/uL (1.2-3.4); MONO % 8.5 %; MONO ABS # 0.91 K/uL (0.11-0.59)
--- NOTE | 2017-11-12 14:16 | DIAGNOSTIC IMAGING REPORT ---
CHEST ONE VIEW PORTABLE CLINICAL HISTORY: 72 years-old Female presenting with EVALUATE ALTERED MENTAL STATUS/WEAKNESS. TECHNIQUE: Portable upright AP view of the chest was obtained. COMPARISON: 06/15/[address] from 10/26/2017. FINDINGS: The patient is CHIRAG rotated. Atherosclerosis of the aortic arch. Cardiac silhouette normal in size allowing for rotation. Chronic elevation of the right hemidiaphragm with chronic right basilar bandlike opacities. No new focal opacity. No large effusion or pneumothorax. Stippled calcification again noted in the right humeral neck, possibly a chondroid lesion. This is unchanged from prior. Degenerative changes of the spine. Cholecystectomy clips noted. IMPRESSION: 1. No acute cardiopulmonary disease. 2. Chronic right basilar atelectasis or scarring. Electronically signed by: Kelvin Urena M.D. 11/12/2017 2:15 PM Dictated Date/Time: 11/12/2017 2:13 PM
--- NOTE | 2017-11-12 14:19 | DIAGNOSTIC IMAGING REPORT ---
KUB HISTORY: Vomiting. COMPARISON: Chest and abdominal series 12/30/2014. Abdomen and pelvis CT 10/26/2017. FINDINGS: Cholecystectomy. Scattered areas of an anastomotic suture material within the abdomen and pelvis consistent with postoperative change. Distended gas-filled loops of small bowel within the mid and left abdomen. These measure up to 5.7 cm in diameter. Gas and stool remains within the colon. No renal calculi. No ureteral calculi. No pneumoperitoneum or pneumatosis. IMPRESSION: Distended gas-filled loops of small bowel within the abdomen. This is worrisome for a small bowel obstruction. Electronically signed by: Abraham Purdy M.D. 11/12/2017 2:17 PM Dictated Date/Time: 11/12/2017 2:15 PM
[2017-11-12 14:24] LABS: ALKALINE PHOSPHATASE 319 U/L (45-117); TOTAL PROTEIN 8.3 gm/dl (6.4-8.2)
[2017-11-12] MEDS ORDERED: OPTIRAY 320 IV PRN (15:15)
--- NOTE | 2017-11-12 16:08 | DIAGNOSTIC IMAGING REPORT ---
ABD/PELVIS IV CONTRAST ONLY CLINICAL HISTORY: 72 years-old Female presenting with possible obstruction, cancer of the appendix. TECHNIQUE: Multidetector CT of the abdomen and pelvis was performed after the administration of intravenous contrast. IV contrast: 23 mL of Optiray 320. A dose lowering technique was used consistent with the principles of ALARA (as low as reasonably achievable). COMPARISON: 10/26/2017. CT DOSE (mGy.cm): The estimated cumulative dose is 994.54 mGycm. FINDINGS: Customer Success Specialist topogram: Cholecystectomy clips noted. Lung bases: Minimal basilar opacities, likely atelectasis. Normal heart size. No pericardial or pleural effusion. Liver: Normal morphology. Suggestion of hepatic steatosis. Several hypodense hepatic lesions noted in the medial left hepatic lobe, unchanged from prior and indeterminate. Patent hepatic vasculature. Biliary: Mild biliary ductal prominence likely a reservoir effect in the post cholecystectomy state. Gallbladder surgically absent. Pancreas: Mild parenchymal atrophy of the residual pancreatic head with postsurgical changes of distal pancreatectomy. Spleen: Surgically absent. Adrenal glands: Normal. Kidneys and ureters: Multifocal cortical atrophy suggested. Nonobstructing punctate calculus at the upper pole the right kidney. Mild to moderate pelvocaliectasis, new from prior. Bilateral ureters are mildly dilated to the level of the mid ureter. Bladder: Distended. Pelvic organs: Uterus surgically absent. No adnexal masses. Bowel: Moderate stool burden in the rectum. A colocolonic anastomosis is noted at the upper rectum. Mild stool burden throughout the remaining colon. Postsurgical changes of the cecum. The distal small bowel is decompressed. An enterocolonic anastomosis may be present. Postsurgical changes of the small bowel mesentery. A gastrojejunostomy is evident with post surgical changes of distal gastrectomy. The distal small bowel anastomosis is noted in the left mid abdomen and is grossly normal appearing. However, abnormal gaseous distention of the pancreaticobiliary limb to the level of the distal small bowel anastomosis. This suggests a site of transition point, possibly due to anastomotic stenosis or adhesions. Peritoneal cavity: No free fluid or intraperitoneal gas. Redemonstration of the cystic appearing lesion in the distal gastrectomy and pancreatectomy bed, which now measures 3.5 cm in diameter, grossly unchanged from prior. The 10 mm left subdiaphragmatic low-density nodule in the suprarenal fossa (series 3 image 66) is grossly unchanged. Lymph nodes: No enlarged lymph nodes in the abdomen or pelvis. Vasculature: Aorta and IVC patent and normal in caliber. Abdominal wall: Postsurgical changes of the midline ventral abdomen with a well-healed surgical scar. No associated fluid. Musculoskeletal: Degenerative changes of the spine. IMPRESSION: 1. Postsurgical changes of Billroth II procedure with a patent gastrojejunostomy. However, abnormal distention of the pancreaticobiliary limb with suspected obstruction at the distal small bowel anastomosis. This may be due to anastomotic stenosis or adhesions. This was at the previously noted site of bowel wall thickening. 2. No significant change in the cystic lesion/collection in the distal pancreatectomy bed and low-density left subdiaphragmatic nodule. As the previous metastatic disease appeared similarly on prior CT from 10/23/2014, these remain suspicious for metastatic deposits. 3. Stable hypodense lesions in the liver, previously characterized as cysts. 4. Hepatic steatosis. 5. Interval development of bilateral hydronephrosis. This may in part be due to distention of the bladder. If there is clinical concern, ultrasound of the kidneys could be performed after voiding 2 evaluate for resolution. 6. Electronically signed by: Kelvin Urena M.D. 11/12/2017 4:06 PM Dictated Date/Time: 11/12/2017 3:52 PM
[2017-11-12] MEDS: FENTANYL CITRATE INJ 50 MCG/1 ML 2 ML VIAL IV PRN ×2 (20:27→23:13)
[2017-11-12] MEDS ORDERED: VANCOMYCIN IV 1,000 MG in SODIUM CHLORIDE 0.9% 250ML 250 ML IV STA (21:47)
[2017-11-12] MEDS ORDERED: PIPERACILLIN/TAZOBACTAM 4.5 GM/100ML D5W IV STA (21:47)
[2017-11-12] MEDS ORDERED: METOCLOPRAMIDE HCL INJ 5 MG/ML 2 ML VIAL IV STA (21:47)
[2017-11-12] MEDS ORDERED: VANCOMYCIN 1GM ED/ASU OMNICELL ONE (21:56)
[2017-11-12] MEDS ORDERED: VANCOMYCIN CONSULT ACTIVE PRN (22:00)
[2017-11-12] MEDS ORDERED: LORAZEPAM 2 MG/ML 1 ML VIAL IV STA (22:29)
[2017-11-13] MEDS ORDERED: PROMETHAZINE HCL INJ 25 MG in SODIUM CHLORIDE 0.9% 50ML 50 ML IV STA (00:07)
[2017-11-13] MEDS: FENTANYL CITRATE INJ 50 MCG/1 ML 2 ML VIAL IV PRN (01:24)
[2017-11-13] MEDS ORDERED: OPTIRAY 320 IV PRN (01:45)
--- NOTE | 2017-11-13 02:12 | EMERGENCY ROOM VISIT NOTE ---
ED Visit Note Received patient in sign out at change of shift. History and physical verified by me. Patient was awaiting bed placement at [facility] however her bed was canceled due to inability of [facility] to provide a transport. At this point the case was again discussed with the hospitalist as well as a surgeon construction and maintenance inspector who both felt that the patient should stay in the emergency department to get a quicker transfer. The patient was started on broad-spectrum antibiotics here in the emergency department including Zosyn and vancomycin. As the patient was going to be here overnight and her scan was a noncontrast scan she was again sent for a contrast CAT scan. CT of the abdomen and pelvis with contrast shows comparison made to prior CT abdomen pelvis on 10/26/2017 Mild cardiomegaly Hepatic steatosis. Small hepatic cyst. Evaluation is limited by motion artifact. Prior cholecystectomy. Prior splenectomy. Bilateral severe hydroureteronephrosis with prominent extrarenal pelvises. Contrast seen excreting from the renal collecting systems and the ureters and into the bladder. The dilation of the collecting systems may be on the basis of a significantly distended bladder. Ileocolostomy changes. Dilated proximal small bowel loops with air-fluid levels. 1 of these transition points may be near the anastomosis in the anterior left upper abdomen. Another possible transition point is in the right lower quadrant. Findings are concerning for small bowel obstruction. Decompressed distal small bowel loops. Distended bladder. Stable chronic compression deformities of the T11 T10 T9 T8 and T7 vertebral bodies. Stable mid superior endplate compression deformity of the L4 vertebral body. Postsurgical changes of the anterior abdominal wall Due to the distention of the bladder on the CAT scan a Rios catheter was immediately placed with evacuation of 1600 mL's. The patient was given numerous doses of nausea medication here in the emergency department including Zofran 2, Phenergan and Reglan. Repeat exam revealed improvement in the patient's symptoms. After the CAT scan an NG tube was placed. This was placed on continuous suctioning. I again discussed the case with the [place] [facility] who stated they should have a bed for the patient in the morning. The patient will be signed out to Dr. Irizarry at change of shift. Due to the extended time in the emergency department repeat laboratory work will be obtained at 6 AM.
[2017-11-13] MEDS ORDERED: OXYMETAZOLINE HCL 0.05% NA SPR 15 ML BTL ONE (03:37)
[2017-11-13] MEDS ORDERED: LORAZEPAM 2 MG/ML 1 ML VIAL IV STA (03:39)
--- NOTE | 2017-11-13 05:32 | EMERGENCY ROOM VISIT NOTE ---
ED Visit Note First contact with patient: 02:33 I received this patient in signout at the change of shift from Dr. Jason Arredondo, awaiting an available bed at [facility]. Patient was reassessed and during my evaluation developed a small right bleed from the nares. This is likely secondary to the recent NG tube placement. Patient also had nasal cannula oxygen in place for which she states she does not usually require. This was discontinued and a nasal clamp was applied. Patient's oxygen saturations have remained stable. She seemed somewhat agitated was given 0.5 mg of IV Ativan. She is currently awaiting a bed assignment at [facility] and subsequent transportation arrangements. Please refer to previous documentation by Dr. Arredondo and Dr. Buckner. Case will be signed out to Dr. Matamoros at the change of shift, pending final disposition.
--- NOTE | 2017-11-13 06:25 | DIAGNOSTIC IMAGING REPORT ---
ABD/PELVIS IV AND ORAL CONT CLINICAL HISTORY: 72 years-old Female presenting with Pt c/o abd pain, cancer of the appendix. TECHNIQUE: Multidetector CT of the abdomen and pelvis was performed after the administration of oral and intravenous contrast. IV contrast: 92 mL of Optiray 320. A dose lowering technique was used consistent with the principles of ALARA (as low as reasonably achievable). COMPARISON: 11/12/2017. CT DOSE (mGy.cm): The estimated cumulative dose is 777.77 mGy.cm. FINDINGS: Candy Forming Machine Operator topogram: Unremarkable. Lung bases: Minimal basilar opacities, likely atelectasis. Normal heart size. No pericardial or pleural effusion. Liver: Normal morphology. Suggestion of hepatic steatosis. Redemonstration of well-defined hypodense lesions in the medial left hepatic lobe, unchanged. Patent hepatic vasculature. Biliary: Mild intrahepatic and moderate extrahepatic biliary ductal dilatation may in part be due to a reservoir effect in the post cholecystectomy state. Gallbladder surgically absent. Pancreas: Postsurgical changes of distal pancreatectomy. Atrophy of the residual pancreatic head parenchyma. No pancreatic ductal dilatation. Spleen: Surgically absent. Adrenal glands: Normal. Kidneys and ureters: Mild diffuse cortical atrophy suggested. More focal cortical atrophy at the upper poles posteriorly could indicate reflux nephropathy. Normal excretion of contrast from the bilateral kidneys. Moderate bilateral pelvocaliectasis. No abnormal perfusion of the kidneys or perinephric edema to suggest hydronephrosis. Normal opacification of the ureters to the level of the mid ureters at the pelvic brim, where they are compressed by the distended bladder. Bladder: Normal opacification of the urinary bladder. The urinary bladder is significantly distended. Pelvic organs: Uterus surgically absent. No adnexal masses. Bowel: Surgical changes of a colocolonic anastomosis at the level of the upper rectum. The sigmoid colon is compressed by the distended bladder. Evaluation of the upper abdomen is difficult due to respiratory motion artifact, which degrades evaluation. Evidence of cecectomy with a enterocolonic anastomosis in the right mid abdomen. The distal small bowel at this level appears unobstructed. Postsurgical changes of distal gastrectomy with and antecolic gastrojejunostomy. Oral contrast is noted in the stomach and transits through the gastrojejunostomy into the proximal small bowel is the pancreaticobiliary limb is again significantly distended with reflux of contrast. Oral contrast has minimally the on the distal anastomosis, which is located in the left abdomen. These distribution of dilated bowel is unchanged from yesterday's examination. Peritoneal cavity: No free fluid or intraperitoneal gas. Redemonstration of the cystic lesion in the gastrohepatic region, which measures approximately 4 cm. Additional 1 cm left subdiaphragmatic low density lesion (series 3 image 66). No new cystic peritoneal lesion. Notably, prior metastatic cystic deposits were previously resected. Lymph nodes: No enlarged lymph nodes in the abdomen or pelvis. Vasculature: Aorta and IVC patent and normal in caliber. Abdominal wall: Extensive postsurgical changes of the midline ventral abdomen. No associated fluid collection. Musculoskeletal: Degenerative changes of the spine. Osteopenia. Compression deformities of several lower thoracic vertebral bodies including T7-T10 and to a lesser extent at T11, T12, and L4. These findings are unchanged since prior CTs. IMPRESSION: 1. Findings consistent with small bowel obstruction at the level of the distal anastomosis. This results in reflux of administered oral contrast into the pathologically dilated pancreaticobiliary limb. 2. Postsurgical changes of Billroth II procedure with antecolic gastrojejunostomy. Additional postsurgical changes of enterocolonic anastomosis in the right abdomen and colocolonic anastomosis at the upper rectum. 3. Moderate bilateral pelvocaliectasis and dilated ureters most consistent with flaccid collecting systems. No convincing evidence of hydronephrosis. This may in part be due to the markedly distended urinary bladder and reflux nephropathy. Urinary bladder decompression recommended. 4. Stable appearance of the cystic gastrohepatic and left subdiaphragmatic lesions most compatible with residual peritoneal disease. Remote prior cystic peritoneal metastases resection. 5. Hepatic steatosis. 6. Stable hypodense lesions in the liver, which are favored to represent cysts. The report will be called/faxed according to standard departmental protocol. Electronically signed by: Kelvin Urena M.D. 11/13/2017 6:23 AM Dictated Date/Time: 11/13/2017 6:07 AM
[2017-11-13 06:35] LABS: ALBUMIN 2.5 gm/dl (3.4-5.0); CALCIUM 8.5 mg/dl (8.5-10.1); CREATININE 1.16 mg/dl (0.60-1.20); POTASSIUM 3.6 mmol/L (3.5-5.1)
[2017-11-13 06:38] LABS: HEMATOCRIT 27.2 % (37-47); MEAN CELL VOLUME 77.7 fL (80-100); MEAN CORPUSCULAR HEMOGLOBIN 22.9 pg (25-34); MEAN CORPUSCULAR HGB CONC 29.4 g/dl (32-36); MEAN PLATELET VOLUME 9.7 fL (7.4-10.4); NUCLEATED RED BLOOD CELL ABS 0.02 K/uL (0-0); PLATELET COUNT 515 K/uL (130-400); RED CELL DISTRIBUTION WIDTH CV 17.9 % (11.5-14.5); RED CELL DISTRIBUTION WIDTH SD 50.9 fL (36.4-46.3); WHITE BLOOD COUNT 8.55 K/uL (4.8-10.8)
[2017-11-13 06:39] LABS: TOTAL PROTEIN 7.1 gm/dl (6.4-8.2)
[2017-11-13 06:53] LABS: BASO % 0.2 %; BASO ABS # 0.02 K/uL (0-0.2); EOS % 0.2 %; EOS ABS # 0.02 K/uL (0-0.5); IG# 0.03 K/uL (0.00-0.02); LYMPH % 15.1 %; LYMPH ABS # 1.29 K/uL (1.2-3.4); MONO % 9.7 %; MONO ABS # 0.83 K/uL (0.11-0.59); NEUT % 74.4 %; NEUT ABS # 6.36 K/uL (1.4-6.5)
--- NOTE | 2017-11-13 07:28 | EMERGENCY ROOM VISIT NOTE ---
ED Visit Note First contact with patient: 07:26 The patient was taken in sign out from Dr. Taryn Irizarry at the change of shift. Please see that note for details. The patient was pending transfer to [facility]. After significant time in the emergency department and frequent reassessments by ED staff the patient was accepted and a bed was available. Transport was arranged. Her interfacility medical command orders were modified to include her maintenance D5 half-normal saline with 20 of KCl at 100 ml's an hour. The patient was reassessed after sign out and prior to discharge and was doing relatively well. Her repeat laboratory testing showed some improvement. She was deemed stable for transfer and was released in the care of the [facility] EMS team.
[2017-11-13] MEDS ORDERED: D5W AND 1/2NSS + 20MEQ KCL 1,000 ML IV STA (07:50)
[2017-11-13 11:00] VITALS: BP 159/97; PULSE 69; O2SAT 98
== END 2017-11-13 11:00 | disposition short-term general hospital (02) ==
LOC: C.EDB 12:06
DX: K56.609 Unspecified intestinal obstruction, unspecified as to partial versus complete obstruction (principal); K92.2 Gastrointestinal hemorrhage, unspecified; D64.9 Anemia, unspecified; R11.2 Nausea with vomiting, unspecified; I95.9 Hypotension, unspecified; I10 Essential (primary) hypertension; F32.9 Major depressive disorder, single episode, unspecified; Z90.710 Acquired absence of both cervix and uterus; Z88.6 Allergy status to analgesic agent; Z88.8 Allergy status to other drugs, medicaments and biological substances; C7A.020 Malignant carcinoid tumor of the appendix

== ENCOUNTER → 2017-12-13 | Outpatient (CLI) | payer BC ==
[~2017-12-13] MED LIST changes: -EFFSR75 PO; +HYOS1TAB PO; -IMD/2 PO; +KLN5X PO; +LEVO100T7 PO; -LEVO88TA PO; +MIRA100T PO; -MULTTAB58 PO; +VENL100T2 PO; -VSC/5 PO; -[UNRECOGNIZED DRUG - CODE] PO
--- NOTE | 2017-12-13 14:46 | DIAGNOSTIC IMAGING REPORT ---
Brain MRI WITHOUT CONTRAST HISTORY: Dementia. Memory loss. TECHNIQUE: Multiplanar multisequence MRI of the brain was performed without the use of contrast. COMPARISON STUDY: Brain MRI 10/20/2011. FINDINGS: There is no mass, hematoma, midline shift, or acute infarct. The paranasal sinuses are clear. The mastoid air cells are clear. The ventricles and sulci demonstrate mild age-related involutional changes. Scattered foci of T2 hyperintensity seen within the periventricular and subcortical white matter are nonspecific but suggestive of moderate microvascular ischemic changes. This has progressed. The major vascular flow voids at the skull base are well-maintained. IMPRESSION: No acute intracranial abnormality. Scattered foci of T2 hyperintensity seen within the periventricular and subcortical white matter have progressed. These are nonspecific but favor moderate microvascular ischemic change. Electronically signed by: Abraham Purdy M.D. 12/13/2017 2:45 PM Dictated Date/Time: 12/13/2017 2:20 PM
== END | disposition home or self-care (01) ==
LOC: C.MRIBC 13:50
PROVIDERS: ATTEND Physician Assistant
DX: R41.3 Other amnesia (principal); R26.9 Unspecified abnormalities of gait and mobility; R90.82 White matter disease, unspecified

== ENCOUNTER → 2017-12-20 | Outpatient (CLI) | payer BC | END | disposition home or self-care (01) | LOC: C.LAB 10:05 | PROVIDERS: ATTEND Physician Assistant | DX: R41.3 Other amnesia (principal); R26.9 Unspecified abnormalities of gait and mobility ==

== ENCOUNTER 2019-09-30 09:54 | Observation (INO) ==
[2019-09-30] MEDS ORDERED: SODIUM CHLORIDE 0.9% 500 ML IV ONE (10:16)
[2019-09-30 10:56] LABS: Basophils # (auto) 0.04 K/uL (0-0.2); Basophils % (auto) 0.5 %; Eosinophils % (auto) 2.3 %; Hematocrit (blood only) 29.3 % (37-47); Hemoglobin 8.9 g/dL (12.0-16.0); Immature Granulocytes # (auto) 0.02 K/uL (0.00-0.02); Immature Granulocytes % (auto) 0.2 %; Lymphocytes # (auto) 1.05 K/uL (1.2-3.4); Lymphocytes % (auto) 11.9 %; Mean Corpuscular Hemoglobin 27.1 pg (25-34); Mean Corpuscular Hgb Conc 30.4 g/dL (32-36); Mean Corpuscular Volume 89.3 fL (80-100); Mean Platelet Volume 9.4 fL (7.4-10.4); Monocytes % (auto) 11.4 %; Neutrophils # (auto) 6.49 K/uL (1.4-6.5); Neutrophils % (auto) 73.7 %; Platelet Count 602 K/uL (130-400); RDW Coefficient of Variation 15.5 % (11.5-14.5); RDW Standard Deviation 49.9 fL (36.4-46.3); Red Blood Count 3.28 M/uL (4.2-5.4)
[2019-09-30] MEDS ORDERED: VANCOMYCIN CONSULT ACTIVE PRN ×2 (11:01→16:15)
[2019-09-30] MEDS ORDERED: VANCOMYCIN HCL 2,000 MG in SODIUM CHLORIDE 0.9% 500 ML IV ONE (11:01)
[2019-09-30 11:14] LABS: Albumin Level 2.5 gm/dl (3.4-5.0); BUN Creatinine Ratio 9.9 (10-20); Creatinine Clr Calc Pharmacy 40.3 ml/min; Est GFR (African American) 54.1; Est GFR (Non-African American) 46.7; Magnesium 1.8 mg/dl (1.8-2.4); Potassium 3.7 mmol/L (3.5-5.1)
[2019-09-30 11:17] LABS: Albumin Globulin Ratio 0.5 (0.9-2); Bilirubin,Total 0.2 mg/dl (0.2-1); Globulin 4.7 gm/dl (2.5-4.0); Total Protein 7.2 gm/dl (6.4-8.2)
[2019-09-30 12:20] LABS: INR 1.2 (0.9-1.1); Partial Thromboplastin Ratio 1.1; Partial Thromboplastin Time 28.8 Seconds (21.0-31.0); Prothrombin Time 11.9 Seconds (9.0-12.0)
--- NOTE | 2019-09-30 14:14 | Emergency Department Note ---
Entered by Mireille Lan acting as a scribe for History of Present Illness General Chief complaint: Urinary Symptoms Stated complaint: URINARY SX Time Seen by Provider: 09/30/19 10:03 Source: patient Mode of arrival: ambulatory Limitations: no limitations History of Present Illness Onset (ago): week(s) 2 Location: genitals (urinary system) Radiation: non-radiation Pain Consistency: + constant Maximum Pain Intensity: 2 Current Pain Intensity: 2 Relieved By: + none Exacerbated By: + none Associated symptoms: + other (-leg swelling, -abdominal pain, +dysuria); no cough and no fever/chills Treatments prior to arrival: none The patient is a 74 year old white female w/ PMHx of appendiceal carcinoid tumor who presents to the ED w/ CC of urinary symptoms. She states she had surgery to remove a tumor over her stomach on August 25, 2019. She was in the hospital for 11 days, then developed post-surgical pain and was transferred to [facility]. She was discharged from [facility] 2 days ago. She got a call yesterday that her urine sample came back possibly infected, and she was referred here to the ED. She denies any cough or fever. She has been urinating and moving her bowels normally. She does admit to some dysuria, rating her discomfort as a 2/10 in severity. She denies any abdominal pain other than her post-surgical soreness. S he denies any leg swelling. Home Medications Home Medications Medication Instructions Recorded Confirmed Type amlodipine 10 mg PO QAM 12/23/18 09/30/19 History gabapentin 100 mg PO BID 12/23/18 09/30/19 History levothyroxine 100 mcg PO QAM 12/23/18 09/30/19 History pantoprazole 40 mg PO BID 12/23/18 09/30/19 History zolpidem 10 mg PO HS 12/23/18 09/30/19 History PreserVision AREDS-2 1 tab PO BID 01/30/19 09/30/19 History polysaccharide iron complex 150 mg PO DAILY 01/30/19 09/30/19 History [Poly-Iron] venlafaxine 150 mg PO DAILY 09/25/19 09/30/19 History [id number] [Creon] 3 cap PO WM 09/30/19 09/30/19 History nystatin 1 applic TOPICAL TID 09/30/19 09/30/19 History tramadol 50 mg PO Q6H PRN 09/30/19 09/30/19 History Allergies Allergy/AdvReac Type Severity Reaction Status Date / Time oxycodone Allergy Intermediate DYSPNEA Verified 09/30/19 11:04 opium tincture AdvReac Intermediate HALLUCINATI Verified 09/30/19 11:04 ONS Ethanol AdvReac Intermediate HALLUCINATI Uncoded 09/30/19 11:04 ONS Past Med/Surg History Medical History Anemia Anxiety Appendiceal carcinoid tumor S/P CHEMO (2011); STAGE IV PER PATIENT Arthritis Breast cancer Chemotherapy adverse reaction (Resolved) Chronic kidney disease PER RECORDS Depression Fibromyalgia Flank pain (Acute) GERD (gastroesophageal reflux disease) OCCASIONAL History of blood transfusion 5+ YEARS AGO FELT RELATED TO CANCER History of DVT (deep vein thrombosis) 2012 History of pulmonary embolism 2012 HTN (hypertension) Hx of migraines Hypothyroidism Insomnia Kidney stone (Inactive) Macular degeneration Metastatic cancer (Acute) Osteoarthritis Pancreatic cancer Peripheral neuropathy Postoperative abdominal pain (Acute) SOB (shortness of breath) (Acute) UTI (urinary tract infection) (Acute) Surgical History H/O total hysterectomy History of appendectomy History of cataract surgery RIGHT/LEFT History of colonoscopy History of cystoscopy History of esophagogastroduodenoscopy (EGD) History of tooth extraction History of vascular access device INSERTION/SUBSEQUENT REMOVAL Pancreatic tumor S/P RESECTION Surgical history of tubal ligation Family History Mother Family history of diabetes mellitus Social History Preferred Language: Azeri Communication Ability: Effective Material Checker Required: No Beliefs That Will Affect Care: None marital status: Current Living Situation: Spouse Feels Safe at Home: Yes Smoking Status: Never smoker Second Hand Exposure: No ; Hx Alcohol Use: No Hx Substance Use: No Review of Systems See HPI for pertinent positives & negatives. and A total of 10 systems reviewed and were otherwise negative Physical Exam Vital Signs Vital Signs - 24 hr 09/30/19 09:58 09/30/19 10:28 09/30/19 12:00 Temperature 36.5 C Temperature Source Oral Pulse Rate 106 H Pulse Rate [Apical] 80 Pulse Rhythm [Apical] Regular Pulse Strength [Apical] Normal Respiratory Rate 18 16 Respiratory Effort / Characteristics Non-Labored Spontaneous Respiratory Depth Normal Respiratory Pattern Regular Blood Pressure 108/68 Blood Pressure [Right Arm] 108/71 Blood Pressure Mean 81 Blood Pressure Mean [Right Arm] 83 Blood Pressure Position Sitting Blood Pressure Position [Right Arm] Lying Pulse Oximetry 98 98 96 Oxygen Delivery Method Room Air Room Air Room Air Sepsis Recent Fever Within 48 Hours No Sepsis Action Taken by Nursing No Action Required GENERAL: Well appearing, well nourished, wearing glasses, NAD, non-toxic. EYE EXAM: Normal conjunctiva. PERRL, no anisocoria and EOM's grossly intact w/o pain. OROPHARYNX: Moist mucous membranes. Grossly normal dentition. NECK: Supple, no nuchal rigidity, no adenopathy, non-tender. No signs of meningismus. LUNGS: Clear to auscultation. Normal chest wall mechanics. HEART: NSR, no MRG. ABDOMEN: Bandage over upper abdomen with mild pain, no active drainage, no lower abdominal tenderness to palpation. Abdomen soft, non-tender, normo-active bowel sounds, no masses, no rebound or guarding. BACK: No CVA TTP. SKIN: No rashes and no bruising. UPPER EXTREMITIES: Upper extremities are grossly normal. LOWER EXTREMITIES: No pitting edema. No calf pain. NEURO EXAM: A&O x3, cranial nerves II-XII grossly intact, normal speech, moves all 4 extremities on command w/o issue. Course Course 1010: The patient was evaluated in room A12A and a complete history and physical were performed. 1108: I updated the patient that she needs to stay for IV antibiotics and she is agreeable with the plan. 1205: I discussed the patients case with Dr. Gagnon, [facility] Hospitalist. The patient will be further evaluated. Administered Medications Discontinued Medications Sodium Chloride (Nss) 500 mls @ 999 mls/hr IV .Q31M ONE Stop: 09/30/19 10:46 Last Infusion: 09/30/19 12:05 Dose: 0 mls/hr Documented by: [id number] Admin: 09/30/19 10:48 Dose: 999 mls/hr Documented by: [id number] Vancomycin HCl 2,000 mg/ (Sodium Chloride) 540 mls @ 200 mls/hr IV NOW ONE Stop: 09/30/19 13:42 Last Admin: 09/30/19 12:04 Dose: 200 mls/hr Documented by: [id number] Medical Decision Making Medical Records Attestation: I reviewed the patient's medical records. Home Medications Current Medication List: was personally reviewed by me Laboratory Data Attestation: I reviewed the patient's lab results. Result diagrams: 09/30/19 10:45 09/30/19 10:45 Lab Results 09/30/19 09/30/19 09/30/19 Range/Units 10:45 10:45 11:55 WBC 8.80 (4.8-10.8) K/uL RBC 3.28 L (4.2-5.4) M/uL Hgb 8.9 L (12.0-16.0) g/dL Hct 29.3 L (37-47) % MCV 89.3 (80-100) fL MCH 27.1 (25-34) pg MCHC 30.4 L (32-36) g/dL RDW Std Deviation 49.9 H (36.4-46.3) fL RDW Coeff of Gina 15.5 H (11.5-14.5) % Plt Count 602 H (130-400) K/uL MPV 9.4 (7.4-10.4) fL Immature Gran % (Auto) 0.2 % Neut % (Auto) 73.7 % Lymph % (Auto) 11.9 % [place] % (Auto) 11.4 % Eos % (Auto) 2.3 % Baso % (Auto) 0.5 % Immature Gran # (Auto) 0.02 (0.00-0.02) K/uL Neut # (Auto) 6.49 (1.4-6.5) K/uL Lymph # (Auto) 1.05 L (1.2-3.4) K/uL [place] # (Auto) 1.00 H (0.11-0.59) K/uL Eos # (Auto) 0.20 (0-0.5) K/uL Baso # (Auto) 0.04 (0-0.2) K/uL PT 11.9 (9.0-12.0) Seconds INR 1.2 H (0.9-1.1) APTT 28.8 (21.0-31.0) Seconds PTT Ratio 1.1 Sodium 140 (136-145) mmol/L Potassium 3.7 (3.5-5.1) mmol/L Chloride 108 H (98-107) mmol/L Carbon Dioxide 26 (21-32) mmol/L Anion Gap 6.0 (3-11) BUN 11 (7-18) mg/dl Creatinine 1.14 (0.6-1.2) mg/dl Est Cr Clr Drug Dosing 40.3 ml/min Est GFR ( Amer) 54.1 Est GFR (Non-Af Amer) 46.7 BUN/Creatinine Ratio 9.9 L (10-20) Glucose 105 H (70-99) mg/dl Lactate (0.4-2.0) mmol/L Calcium 9.0 (8.5-10.1) mg/dl Magnesium 1.8 (1.8-2.4) mg/dl Total Bilirubin 0.2 (0.2-1) mg/dl AST 6 L (15-37) U/L ALT 8 L (12-78) U/L Alkaline Phosphatase 115 (45-117) U/L Total Protein 7.2 (6.4-8.2) gm/dl Albumin 2.5 L (3.4-5.0) gm/dl Globulin 4.7 H (2.5-4.0) gm/dl Albumin/Globulin Ratio 0.5 L (0.9-2) 09/30/19 Range/Units 11:55 WBC (4.8-10.8) K/uL RBC (4.2-5.4) M/uL Hgb (12.0-16.0) g/dL Hct (37-47) % MCV (80-100) fL MCH (25-34) pg MCHC (32-36) g/dL RDW Std Deviation (36.4-46.3) fL RDW Coeff of Gina (11.5-14.5) % Plt Count (130-400) K/uL MPV (7.4-10.4) fL Immature Gran % (Auto) % Neut % (Auto) % Lymph % (Auto) % [place] % (Auto) % Eos % (Auto) % Baso % (Auto) % Immature Gran # (Auto) (0.00-0.02) K/uL Neut # (Auto) (1.4-6.5) K/uL Lymph # (Auto) (1.2-3.4) K/uL [place] # (Auto) (0.11-0.59) K/uL Eos # (Auto) (0-0.5) K/uL Baso # (Auto) (0-0.2) K/uL PT (9.0-12.0) Seconds INR (0.9-1.1) APTT (21.0-31.0) Seconds PTT Ratio Sodium (136-145) mmol/L Potassium (3.5-5.1) mmol/L Chloride (98-107) mmol/L Carbon Dioxide (21-32) mmol/L Anion Gap (3-11) BUN (7-18) mg/dl Creatinine (0.6-1.2) mg/dl Est Cr Clr Drug Dosing ml/min Est GFR ( Amer) Est GFR (Non-Af Amer) BUN/Creatinine Ratio (10-20) Glucose (70-99) mg/dl Lactate 2.2 H* (0.4-2.0) mmol/L Calcium (8.5-10.1) mg/dl Magnesium (1.8-2.4) mg/dl Total Bilirubin (0.2-1) mg/dl AST (15-37) U/L ALT (12-78) U/L Alkaline Phosphatase (45-117) U/L Total Protein (6.4-8.2) gm/dl Albumin (3.4-5.0) gm/dl Globulin (2.5-4.0) gm/dl Albumin/Globulin Ratio (0.9-2) ECG Data Attestation: I personally reviewed and interpreted this ECG as follows: Indication: + other (urinary symptoms) Rate (beats per minute): 79 Rhythm: + normal sinus ECG [place]: + Left axis deviation ECG Findings: + Other (Normal intervals, no STS changes) Blood Pressure Blood Pressure Findings: Normal blood pressure Blood Pressure Disposition: did not require urgent referral MDM Narrative The patient is a 74 year old white female w/ PMHx of appendiceal carcinoid tumor who presents to the ED w/ CC of urinary symptoms. Differential diagnoses includes but is not limited to gastritis, peptic ulcer disease, GERD, gallbladder disease, pancreatitis, small bowel obstruction, acute coronary syndrome, pericarditis, ischemic bowel, irritable bowel disease, irritable bowel syndrome, appendicitis, diverticulitis, malignancy, hernia, urinary tract infection, torsion, perforation, trauma, infectious. Patient was seen and evaluated the bedside. Patient was presenting as she was called about the concern for a urine culture that had drug-resistant bacteria which would only be improved with IV antibiotics. The patient does not appear in extremitas. The patient did have a recent surgery for gastric cancer and did require subsequent transfer back to [facility] due to a leak from the anterior abdomen. Patient otherwise is well-appearing and does have some chronic and persistent abdominal discomfort. The patient does not appear in extremitas is not septic. Blood work was ordered along with blood and urine cultures given the need for antibiotics. After review with the pharmacist will start the patient on vancomycin. The patient's blood work shows chronic anemia normal white count good kidney function. I did speak the on-call hospitalist and updated the patient. The patient was subsequently admitted to the medicine service. Impression & Plan Complicated UTI (urinary tract infection), History of gastric cancer, Anemia Discharge Plan Visit Data Chief Complaint: Urinary Symptoms Stated Complaint: URINARY SX ED Provider: Soren Prajapati Discharge Problem: Complicated UTI (urinary tract infection), History of gastric cancer, Anemia Patient Disposition: Being Evaluated by Hospitalist Forms Stand Alone Forms: My [facility] Prescriptions Prescriptions: No Action levothyroxine 100 mcg tablet 100 mcg PO QAM RF: 0 gabapentin 100 mg capsule 100 mg PO BID RF: 0 zolpidem 10 mg tablet 10 mg PO HS RF: 0 amlodipine 10 mg tablet 10 mg PO QAM RF: 0 pantoprazole 40 mg tablet,delayed release (DR/EC) 40 mg PO BID RF: 0 polysaccharide iron complex [Poly-Iron] 150 mg iron Capsule 150 mg PO DAILY RF: 0 PreserVision AREDS-2 [id number] Capsule 1 tab PO BID RF: 0 venlafaxine 150 mg capsule,extended release 24hr 150 mg PO DAILY RF: 0 nystatin 100,000 unit/gram ointment 1 applic TOPICAL TID RF: 0 tramadol 50 mg tablet 50 mg PO Q6H PRN (Reason: Pain) RF: 0 Creon 36,000-114,000- 180,000 unit capsule,delayed release(DR/EC) 3 cap PO WM RF: 0 Referrals Referrals: Ghassan Alva [Primary Care Provider] - Discharge Problem: Anemia Qualifiers: Anemia type: unspecified type Qualified Code(s): D64.9 - Anemia, unspecified The scribe's documentation has been prepared under my direction and personally reviewed by me in its entirety. I confirm that the note above accurately reflects all work, treatment, procedures, and medical decision making performed by me.
[2019-09-30] MEDS ORDERED: DOCUSATE SODIUM 100 MG CAP PO PRN (16:15)
[2019-09-30] MEDS ORDERED: TRAMADOL HCL 50 MG TABLET PO PRN (16:15)
[2019-09-30] MEDS ORDERED: ONDANSETRON INJ 2 MG/ML 2 ML VIAL IV PRN (16:15)
[2019-09-30] MEDS ORDERED: ACETAMINOPHEN 325 MG TAB PO PRN (16:15)
[2019-09-30] MEDS ORDERED: PANCREAZE (LIPASE 10,500U) CAP PO PRN (16:27)
[2019-09-30] MEDS: LACTATED RINGER'S 1,000 ML IV SCH ×2 (16:58→23:25)
[2019-09-30] MEDS: PANCREAZE (LIPASE 10,500U) CAP PO SCH (17:38)
[2019-09-30] MEDS: NYSTATIN OINT 15 GM TUBE EXT SCH ×2 (17:39→20:41)
[2019-09-30] MEDS ORDERED: ENOXAPARIN INJ 40 MG/0.4 ML SYR SQ SCH (18:00)
--- NOTE | 2019-09-30 18:15 | Electrocardiogram Report ---
Test Reason : Blood Pressure : / mmHG Vent. Rate : 079 BPM Atrial Rate : 079 BPM P-R Int : 132 ms QRS Dur : 082 ms QT Int : 376 ms P-R-T Axes : 030 -50 025 degrees QTc Int : 431 ms Poor data quality, interpretation may be adversely affected Normal sinus rhythm Low voltage QRS Left anterior fascicular block Possible Lateral infarct , age undetermined Poor R wave progression, consider anterior MS vs. lead placement vs. LVH Abnormal ECG When compared with ECG of 25-SEP-2019 16:49, No significant change was found Confirmed by Bib Fragoso ([id number]) on 09/30/2019 6:15:39 PM Referred By: REFERRED SELF Confirmed By:Jason Fragoso
--- NOTE | 2019-09-30 18:52 | History & Physical Report ---
Date of Service September 30, 2019 Assessment & Plan (1) Complicated UTI (urinary tract infection): Patient afebrile, hemodynamically stable, nontoxic in appearance. Urine culture from 09/25/2019+ for greater than 100,000 CFU enterococcus faecium sensitive to daptomycin and vancomycin. Patient is without urinary symptoms however, given her multiple malignancies, possible immunocompromise state and open abdominal wound would be best to treat -Vancomycin Patient should have PICC line placement for outpatient antibiotics through [facility]. Of note, she has had a PICC line in the past and reports that it was a difficult placement. She states that they tried 4 different locations and ultimately ended up placing it in her right antecubital fossa (she thinks) Present on Admission?: Yes (2) History of gastric cancer: We do not have detailed records concerning her malignancy history. Patient reports having 6 separate malignancies. 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 Recommend referral on discharge -Continue Creon Packing/dressing changes twice daily. Wound care nurse consulted. Appreciate assistance Present on Admission?: Yes (3) Anemia: Hgb = 8.9, HCT = 29.3. No active bleeding Continue to monitor Present on Admission?: Yes (4) Anxiety: Chronic. Stable. Continue venlafaxine Present on Admission?: Yes (5) GERD (gastroesophageal reflux disease): Chronic. Stable. Continue Protonix Present on Admission?: Yes (6) Hypothyroidism: Chronic. Continue Synthroid (7) History of DVT (deep vein thrombosis): Noted. Patient is at high risk for subsequent DVTs Lovenox prophylaxis FENLR at 125 mL/h x 2 L, monitor electrolytes and replete as needed, continue iron supplement and multivitamin, regular diet as tolerated ProphylaxisLovenox for DVT, continue home Protonix Codefull per discussion with patient Dispositionadmit to medical floor Present on Admission?: Yes History of Present Illness Chief Complaint: Drug-resistant UTI Primary Care Provider: Ghassan Eldridgebret Avila is an unfortunate 74-year-old female with history of multiple prior malignancies, presently active gastric cancer. On 08/25/2019 she was admitted to [facility] for 11 days for what sounds to be surgical removal of abdominal tumor. She was discharged home in stable condition. She had subsequent minor wound dehiscence and presently has her abdomen packed and dressed. She had routine outpatient labs performed on 09/25/2019 which revealed a urine culture positive for >100,000 CFU of enterococcus faecia sensitive only to daptomycin and vancomycin. She was notified 2 days ago of the positive culture. At this time patient is afebrile, hemodynamically stable, presently with no urinary complaints. She denies fever/chills/suprapubic discomfort/frequency/urgency. ER course: Normal saline, vancomycin Allergies Allergy/AdvReac Type Severity Reaction Status Date / Time oxycodone Allergy Intermediate DYSPNEA Verified 09/30/19 11:04 opium tincture AdvReac Intermediate HALLUCINATI Verified 09/30/19 11:04 ONS Ethanol AdvReac Intermediate HALLUCINATI Uncoded 09/30/19 11:04 ONS Home Medications Home Medications Medication Instructions Recorded Confirmed Type amlodipine 10 mg PO QAM 12/23/18 09/30/19 History gabapentin 100 mg PO BID 12/23/18 09/30/19 History levothyroxine 100 mcg PO QAM 12/23/18 09/30/19 History pantoprazole 40 mg PO BID 12/23/18 09/30/19 History zolpidem 10 mg PO HS 12/23/18 09/30/19 History PreserVision AREDS-2 1 tab PO BID 01/30/19 09/30/19 History polysaccharide iron complex 150 mg PO DAILY 01/30/19 09/30/19 History [Poly-Iron] venlafaxine 150 mg PO DAILY 09/25/19 09/30/19 History cpqgyk-kmffmjlj-kcousst [Creon] 3 cap PO WM 09/30/19 09/30/19 History nystatin 1 applic TOPICAL TID 09/30/19 09/30/19 History tramadol 50 mg PO Q6H PRN 09/30/19 09/30/19 History Past Med/Surg History Medical History Anemia Anxiety Appendiceal carcinoid tumor S/P CHEMO (2011); STAGE IV PER PATIENT Arthritis Breast cancer Chemotherapy adverse reaction (Resolved) Chronic kidney disease PER RECORDS Depression Fibromyalgia Flank pain (Acute) GERD (gastroesophageal reflux disease) OCCASIONAL History of blood transfusion 5+ YEARS AGO FELT RELATED TO CANCER History of DVT (deep vein thrombosis) 2012 History of pulmonary embolism 2012 HTN (hypertension) Hx of migraines Hypothyroidism Insomnia Kidney stone (Inactive) Macular degeneration Metastatic cancer (Acute) Osteoarthritis Pancreatic cancer Peripheral neuropathy Postoperative abdominal pain (Acute) SOB (shortness of breath) (Acute) UTI (urinary tract infection) (Acute) Surgical History H/O total hysterectomy History of appendectomy History of cataract surgery RIGHT/LEFT History of colonoscopy History of cystoscopy History of esophagogastroduodenoscopy (EGD) History of tooth extraction History of vascular access device INSERTION/SUBSEQUENT REMOVAL Pancreatic tumor S/P RESECTION Surgical history of tubal ligation Family History Mother Family history of diabetes mellitus Social History Preferred Language: Frisian Communication Ability: Effective 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 Beliefs That Will Affect Care: None marital status: Current Living Situation: Spouse Feels Safe at Home: Yes Safety Concerns: Feels Safe At This Time Smoking Status: Never smoker Do You Dip or Chew Tobacco: No ; Second Hand Exposure: No ; Hx Alcohol Use: No Hx Substance Use: No Review of Systems Review of Systems: All systems reviewed & are unremarkable except as noted in HPI & below Physical Exam Physical Exam: General: patient resting comfortably, NAD, non-toxic in appearance, AA&O x 4 Skin: warm, dry, no rashes or lesions HEENT: NC/AT, PERRL, EOMI, anicteric sclera, conjunctiva without injection, external ear normal to inspection and nontender, nares patent, dry mucus membranes, dentition intact, no oropharyngeal lesions, neck supple, trachea midline, no LAD, no thyromegaly, no JVD Heart: +S1/S2, regular, no m/r/g Lungs: equal air entry bilaterally, no rales/rhonchi/wheezes Abd: +BS, soft, surgical wound with dressing in place, clean/dry/intact with no erythema, mildly tender abdomen with no rebound/guarding/peritoneal signs, no masses/organomegaly/ascites Ext: warm, 2+ pulses in UE/LE bilaterally, no clubbing/cyanosis or edema Neuro: nonfocal, patient AA&O x 4, speech intact, no facial droop, moving all extremities on command with equal strength 5/5 Results & Data Vital Signs (Past 12 Hours) Vital Signs Temp Pulse Pulse Resp BP BP Pulse Ox 09/30/19 16:34 37.2 C 66 18 152/92 H 93 09/30/19 15:00 71 19 121/84 95 09/30/19 13:29 70 18 131/88 94 09/30/19 12:00 80 16 108/71 96 09/30/19 10:28 98 09/30/19 09:58 36.5 C 106 H 18 108/68 98 Laboratory Results Lab Results 09/30/19 09/30/19 09/30/19 Range/Units 10:45 10:45 11:55 WBC 8.80 (4.8-10.8) K/uL RBC 3.28 L (4.2-5.4) M/uL Hgb 8.9 L (12.0-16.0) g/dL Hct 29.3 L (37-47) % MCV 89.3 (80-100) fL MCH 27.1 (25-34) pg MCHC 30.4 L (32-36) g/dL RDW Std Deviation 49.9 H (36.4-46.3) fL RDW Coeff of Gina 15.5 H (11.5-14.5) % Plt Count 602 H (130-400) K/uL MPV 9.4 (7.4-10.4) fL Immature Gran % (Auto) 0.2 % Neut % (Auto) 73.7 % Lymph % (Auto) 11.9 % [place] % (Auto) 11.4 % Eos % (Auto) 2.3 % Baso % (Auto) 0.5 % Immature Gran # (Auto) 0.02 (0.00-0.02) K/uL Neut # (Auto) 6.49 (1.4-6.5) K/uL Lymph # (Auto) 1.05 L (1.2-3.4) K/uL [place] # (Auto) 1.00 H (0.11-0.59) K/uL Eos # (Auto) 0.20 (0-0.5) K/uL Baso # (Auto) 0.04 (0-0.2) K/uL PT 11.9 (9.0-12.0) Seconds INR 1.2 H (0.9-1.1) APTT 28.8 (21.0-31.0) Seconds PTT Ratio 1.1 Sodium 140 (136-145) mmol/L Potassium 3.7 (3.5-5.1) mmol/L Chloride 108 H (98-107) mmol/L Carbon Dioxide 26 (21-32) mmol/L Anion Gap 6.0 (3-11) BUN 11 (7-18) mg/dl Creatinine 1.14 (0.6-1.2) mg/dl Est Cr Clr Drug Dosing 40.3 ml/min Est GFR ( Amer) 54.1 Est GFR (Non-Af Amer) 46.7 BUN/Creatinine Ratio 9.9 L (10-20) Glucose 105 H (70-99) mg/dl Lactate (0.4-2.0) mmol/L Calcium 9.0 (8.5-10.1) mg/dl Magnesium 1.8 (1.8-2.4) mg/dl Total Bilirubin 0.2 (0.2-1) mg/dl AST 6 L (15-37) U/L ALT 8 L (12-78) U/L Alkaline Phosphatase 115 (45-117) U/L Total Protein 7.2 (6.4-8.2) gm/dl Albumin 2.5 L (3.4-5.0) gm/dl Globulin 4.7 H (2.5-4.0) gm/dl Albumin/Globulin Ratio 0.5 L (0.9-2) 09/30/19 09/30/19 Range/Units 11:55 13:48 WBC (4.8-10.8) K/uL RBC (4.2-5.4) M/uL Hgb (12.0-16.0) g/dL Hct (37-47) % MCV (80-100) fL MCH (25-34) pg MCHC (32-36) g/dL RDW Std Deviation (36.4-46.3) fL RDW Coeff of Gina (11.5-14.5) % Plt Count (130-400) K/uL MPV (7.4-10.4) fL Immature Gran % (Auto) % Neut % (Auto) % Lymph % (Auto) % [place] % (Auto) % Eos % (Auto) % Baso % (Auto) % Immature Gran # (Auto) (0.00-0.02) K/uL Neut # (Auto) (1.4-6.5) K/uL Lymph # (Auto) (1.2-3.4) K/uL [place] # (Auto) (0.11-0.59) K/uL Eos # (Auto) (0-0.5) K/uL Baso # (Auto) (0-0.2) K/uL PT (9.0-12.0) Seconds INR (0.9-1.1) APTT (21.0-31.0) Seconds PTT Ratio Sodium (136-145) mmol/L Potassium (3.5-5.1) mmol/L Chloride (98-107) mmol/L Carbon Dioxide (21-32) mmol/L Anion Gap (3-11) BUN (7-18) mg/dl Creatinine (0.6-1.2) mg/dl Est Cr Clr Drug Dosing ml/min Est GFR ( Amer) Est GFR (Non-Af Amer) BUN/Creatinine Ratio (10-20) Glucose (70-99) mg/dl Lactate 2.2 H* 1.8 (0.4-2.0) mmol/L Calcium (8.5-10.1) mg/dl Magnesium (1.8-2.4) mg/dl Total Bilirubin (0.2-1) mg/dl AST (15-37) U/L ALT (12-78) U/L Alkaline Phosphatase (45-117) U/L Total Protein (6.4-8.2) gm/dl Albumin (3.4-5.0) gm/dl Globulin (2.5-4.0) gm/dl Albumin/Globulin Ratio (0.9-2) Diagnostic Findings Poor data quality, interpretation may be adversely affected Normal sinus rhythm Low voltage QRS Left anterior fascicular block Possible Lateral infarct , age undetermined Poor R wave progression, consider anterior WI vs. lead placement vs. LVH Abnormal ECG When compared with ECG of 25-SEP-2019 16:49, No significant change was found Confirmed by Bib Fragoso ([id number]) on 09/30/2019 6:15:39 PM Code Status & VTE Plan Code Status Full code VTE Prophylaxis Plan VTE Prophylaxis will be ordered: Yes PG Care Time/CCT Total # of Minutes Spent Total Time Spent with Patient: Total time spent is greater than 50% in coordination of care (as documented) at patient's floor/unit and/or counseling patient: Coding Level of Care Code 56584 Initial Inpt Care Lvl 3 Diagnoses Complicated UTI (urinary tract infection) N39.0 History of gastric cancer Z85.028 Anemia D64.9 Anemia type: unspecified type Anxiety F41.9 GERD (gastroesophageal reflux disease) K21.9 Esophagitis presence: esophagitis presence not specified Hypothyroidism E03.9 History of DVT (deep vein thrombosis) Z86.718 (1) Anemia Anemia type: unspecified type Qualified Code(s): D64.9 - Anemia, unspecified (2) GERD (gastroesophageal reflux disease) Esophagitis presence: esophagitis presence not specified Qualified Code(s): K21.9 - Gastro-esophageal reflux disease without esophagitis
--- NOTE | 2019-09-30 20:32 | Pharmacy Report ---
Pharmacy Abx Dose Short Note - Date of Service September 30, 2019 - Assessment & Plan Assessment 74 year old F with history of malignancy. Had surgery for abdominal tumor removal on 08/25. Urine culture from 09/25 growing Enterococcus faecium sensitive to vanc and dapto. Pharmacy consulted to dose vancomycin for uncomplicated UTI. Renal function appears to be close to baseline. Blood cultures pending. Plan Vancomycin for treatment of UTI Vancomycin IV * Estimated PK Parameters: Vd 0.7 L/kg, Greyson 0.037 hr-1, t1/2 ~18hr * Loading dose: 2000 mg (25 mg/kg) * Maintenance dose: 1250 mg IV (16 mg/kg) every 24 hours * Goal trough level for UTI : 10 to 15 mcg/mL * Trough/Random level ordered for 10/03/19 @0530. This is prior to third maintenance dose (prior to steady state), on day 4 of therapy. Uncomplicated UTI duration of therapy is 5 days. Pharmacy will continue to follow and will adjust dose/frequency as necessary. Thank you.
[2019-09-30] MEDS: GABAPENTIN 100 MG CAP PO SCH (20:41)
[2019-09-30] MEDS: PANTOprazole 40 MG TAB PO SCH (20:42)
[2019-09-30] MEDS ORDERED: ZOLPIDEM TARTRATE 10 MG TAB PO SCH (21:00)
[2019-10-01] MEDS ORDERED: VANCOMYCIN HCL 1,250 MG in SODIUM CHLORIDE 0.9% 250 ML IV SCH (06:00)
[2019-10-01] MEDS ORDERED: LEVOTHYROXINE SODIUM 100 MCG TABLET PO SCH (06:30)
[2019-10-01 07:15] LABS: Basophils # (auto) 0.05 K/uL (0-0.2); Basophils % (auto) 0.7 %; Eosinophils # (auto) 0.28 K/uL (0-0.5); Eosinophils % (auto) 3.9 %; Hemoglobin 9.1 g/dL (12.0-16.0); Immature Granulocytes # (auto) 0.01 K/uL (0.00-0.02); Immature Granulocytes % (auto) 0.1 %; Lymphocytes # (auto) 2.16 K/uL (1.2-3.4); Mean Corpuscular Hemoglobin 26.9 pg (25-34); Mean Corpuscular Hgb Conc 30.3 g/dL (32-36); Mean Corpuscular Volume 88.8 fL (80-100); Mean Platelet Volume 9.5 fL (7.4-10.4); Monocytes # (auto) 0.98 K/uL (0.11-0.59); Monocytes % (auto) 13.6 %; Neutrophils # (auto) 3.73 K/uL (1.4-6.5); Neutrophils % (auto) 51.7 %; Platelet Count 530 K/uL (130-400); RDW Coefficient of Variation 15.6 % (11.5-14.5); RDW Standard Deviation 50.2 fL (36.4-46.3); Red Blood Count 3.38 M/uL (4.2-5.4); White Blood Count 7.21 K/uL (4.8-10.8)
[2019-10-01 07:42] LABS: BUN Creatinine Ratio 9.9 (10-20); Calcium 8.8 mg/dl (8.5-10.1); Est GFR (African American) 67.4; Est GFR (Non-African American) 58.2; Potassium 3.9 mmol/L (3.5-5.1)
[2019-10-01] MEDS: PANCREAZE (LIPASE 10,500U) CAP PO SCH ×2 (07:51→11:58)
[2019-10-01] MEDS: GABAPENTIN 100 MG CAP PO SCH (08:41)
[2019-10-01] MEDS: PANTOprazole 40 MG TAB PO SCH (08:42)
[2019-10-01] MEDS: NYSTATIN OINT 15 GM TUBE EXT SCH (08:43)
[2019-10-01] MEDS ORDERED: VENLAFAXINE HCL XR 150 MG CAPXR PO SCH (09:00)
[2019-10-01] MEDS ORDERED: AMLODIPINE BESYLATE 5 MG TAB PO SCH (09:00)
[2019-10-01] MEDS ORDERED: IRON POLYSACCHARIDE COMPLEX 150 MG CAPSULE PO SCH (09:00)
[2019-10-01] MEDS ORDERED: CEROVITE ADV FORMULA TAB PO SCH (09:00)
[2019-10-01] MEDS ORDERED: NITROFURANTOIN MONOHYDRATE 100 MG CAP PO SCH (10:00)
--- NOTE | 2019-10-01 13:34 | Discharge Summary ---
Date of Service October 01, 2019 Admission HPI Per Admitting Provider Gris Avila is an unfortunate 74-year-old female with history of multiple prior malignancies, presently active gastric cancer. On 08/25/2019 she was admitted to [facility] for 11 days for what sounds to be surgical removal of abdominal tumor. She was discharged home in stable condition. She had subsequent minor wound dehiscence and presently has her abdomen packed and dressed. She had routine outpatient labs performed on 09/25/2019 which revealed a urine culture positive for >100,000 CFU of enterococcus faecia sensitive only to daptomycin and vancomycin. She was notified 2 days ago of the positive culture. At this time patient is afebrile, hemodynamically stable, presently with no urinary complaints. She denies fever/chills/suprapubic discomfort/frequency/urgency. ER course: Normal saline, vancomycin Admission Exam Per Admitting Provider General: patient resting comfortably, NAD, non-toxic in appearance, AA&O x 4 Skin: warm, dry, no rashes or lesions HEENT: NC/AT, PERRL, EOMI, anicteric sclera, conjunctiva without injection, external ear normal to inspection and nontender, nares patent, dry mucus membranes, dentition intact, no oropharyngeal lesions, neck supple, trachea midline, no LAD, no thyromegaly, no JVD Heart: +S1/S2, regular, no m/r/g Lungs: equal air entry bilaterally, no rales/rhonchi/wheezes Abd: +BS, soft, surgical wound with dressing in place, clean/dry/intact with no erythema, mildly tender abdomen with no rebound/guarding/peritoneal signs, no masses/organomegaly/ascites Ext: warm, 2+ pulses in UE/LE bilaterally, no clubbing/cyanosis or edema Neuro: nonfocal, patient AA&O x 4, speech intact, no facial droop, moving all extremities on command with equal strength 5/5 Principal Diagnosis UTI Discharge Exam General: In NAD Neuro: A&O x 4 CV: RRR, no m/r/g Pulm: CTAB, equal breath sounds bilaterally, no increased work of breathing Abdomen: +BS, no TTP in all quadrants, non-distended, midline abdominal incision site with small 1cm area of dehisence on superior aspect of incision (draining serous fluid and packing in place, no surrounding erythema or purulent drainage noted); remaining incision closed and healing well LE: No LE edema, no calf tenderness Discharge Data Allergies Allergy/AdvReac Type Severity Reaction Status Date / Time oxycodone Allergy Intermediate DYSPNEA Verified 09/30/19 11:04 opium tincture AdvReac Intermediate HALLUCINATI Verified 09/30/19 11:04 ONS Ethanol AdvReac Intermediate HALLUCINATI Uncoded 09/30/19 11:04 ONS Consultations 09/30/19 16:15 Consult Case Management - Discharge Planning Routine Hospital Course (1) Hypothyroidism: (2) History of DVT (deep vein thrombosis): (3) GERD (gastroesophageal reflux disease): (4) Depression: (5) Anxiety: (6) History of gastric cancer: (7) Anemia: (8) Metastatic cancer: (9) UTI (urinary tract infection): 74-year-old female with history of multiple prior malignancies, presently active gastric cancer. S/p abdominal tumore removal on 08/25/2019 at [facility] with subsequent minor wound dehiscence (currently abdomen packed and dressed). She had presented to the ED on 09/25/2019 because she was not feeling well and was transferred to [facility] for concern of abdominal wound cellulitis. She returned from [facility] and there was no concern for abdominal wound cellulitis when she received call from our ED regarding 09/25 urine culture bding positive for >100,000 CFU of enterococcus faecia sensitive only to daptomycin and vancomycin only at that time. UTI: -Afebrile, no WBC elevation, hemodynamically stable, nontoxic, no urinary symptoms except for urgency -BCx2 pending, lactate 2.2 ->1.8 -Urine culture from 09/25/2019+ for greater than 100,000 CFU enterococcus faecium sensitive to macrobid, gentamicin daptomycin and vanc -Received Vancomycin initionally then given culture susceptibility changed to include macrobid transitioned to macrobid 100mg BID x 5 days (confirmed with pharmacy) History of gastric cancer: -[place] records from [facility] [place] Patient reports having 6 separate malignancies. Records mention metastatic pancreatic cancer as well as stage IV appendiceal cancer and gastric cancer -Continue Creon Anemia: Hgb = 8.9, HCT = 29.3. No active bleeding -Continue iron supplemenyt Anxiety: Continue venlafaxine GERD (gastroesophageal reflux disease): Continue Protonix Hypothyroidism: Continue Synthroid History of DVT (deep vein thrombosis): Received Lovenox for prophylaxis (10) Appendiceal carcinoid tumor: Total Time Total Time Spent Total Time Spent (In Minutes): <30 mins Discharge Plan Discharge Items Patient Disposition: Home - Self-Care Reason For Visit: UTI, DRUG RESISTANT ENTEROCOCCUS FAECIUM Discharge Diagnosis: UTI Activity: Resume your previous activity Non-emergency contact: Primary Care Provider Call non-emergency contact if: you have any medication questions and your symptoms worsen Follow-up/Referrals: Ghassan Alva [Primary Care Provider] - Diet: Heart Healthy Addtl Attending Provider Instructions: Ms. Avila you were admitted after you were called to come back to the hospital because your urine was growing a bacteria. We admitted you because the bacteria looked like it was only sensitive to IV antibiotics. You did not really have any urinary symptoms, fever, pain and overall felt like your usual self. Today we discovered that the bacteria is also susceptible to a medication we can give you by mouth and since you were doing so well we felt comfortable discharging you home with the oral antibiotic. Your abdominal surgical wound site also looked good and we are not concerned that it is infected at this time. Please follow the instructions below: -Take Macrobid (nitrofurantoin) 100mg, 1 pill twice a day (antibiotic for bladder infection) -Follow up with your primary care doctor in 2-3 days to ensure you are adithya nuing to do well -Continue to change your abdominal wound dressing as instructed -Follow up with your doctor or return to the emergency room if you notice spreading redness, increased discomfort, and/or pussy drainage from your wound or if you have any fever, worsening back/flank pain, burning with urination or any other concerning symptoms Pending Studies at Discharge: Yes Studies:: Blood cultures Stand-Alone Forms: My [employer], Smoking Cessation Medications and DC Order Prescriptions: New nitrofurantoin monohyd/m-cryst 100 mg Capsule 100 mg PO BID Qty: 9 RF: 0 Continued levothyroxine 100 mcg tablet 100 mcg PO QAM RF: 0 gabapentin 100 mg capsule 100 mg PO BID RF: 0 zolpidem 10 mg tablet 10 mg PO HS RF: 0 amlodipine 10 mg tablet 10 mg PO QAM RF: 0 pantoprazole 40 mg tablet,delayed release (DR/EC) 40 mg PO BID RF: 0 polysaccharide iron complex [Poly-Iron] 150 mg iron Capsule 150 mg PO DAILY RF: 0 PreserVision AREDS-2 [id number] pv-mfml-dw-mg Capsule 1 tab PO BID RF: 0 venlafaxine 150 mg capsule,extended release 24hr 150 mg PO DAILY RF: 0 nystatin 100,000 unit/gram ointment 1 applic TOPICAL TID RF: 0 tramadol 50 mg tablet 50 mg PO Q6H PRN (Reason: Pain) RF: 0 Creon 36,000-114,000- 180,000 unit capsule,delayed release(DR/EC) 3 cap PO WM RF: 0 Discharge Orders: Discharge Order (Routine); Ordered 10/01/19 Ordered By: Moshe Woodard Admission Data Admit Date/Time: 09/30/19 13:20 Attending Provider: Lorenzo Jackson Admit Provider: Ijeoma Gagnon Primary Care Provider: Ghassan Alva Other Interventions: Discharge Summary Assessment (RN) Last Done: 10/01/19 13:12 DC Date/Time DO NOT enter until pt leaves facility: 10/01/19 13:33 Supervising Physician Co-Signing Physician Notes I personally examined the patient and verified all gallagher points of history and exam, discussed case, and agree with decision making with Dr Woodard. Was here in the ER on the , transferred to [place], no antibiotics, just local wound care. Discharged home. Called back to the ER due to enterococcus initially reported out as sensitive to only IV antibiotics. Admitted for this purpose. Urinary symptoms are actually simply urgency. No fevers no flank pain that is new or different, she does note she has some pain but relates it to her chronic conditions and wounds. No chills no sweats. No dysuria. Vitals noted, in general she is awake and alert pleasant no distress, eating well. heent nc at mmm. breathing unlabored no accessory muscles good effort. abd wound showing areas of healing by secondary intent no exudate, no erythema UTI - multidrug resistance bug but simple cystitis symptoms only. no wound infection/other indication for needing systemic antibiotics - only need to treat cystitis - macrobid. stable for home. outpt f/u, otherwise as above Resident Activity Tracking Resident Involvement: Resident Care Provided Care Provided: Adult [facility] Medicine
--- NOTE | 2019-10-01 15:41 | Billing Data ---
Date of Service October 01, 2019 Coding Level of Care Code D/C Day Management <30 mins
[2019-10-03] MEDS ORDERED: VANCOMYCIN TROUGH ONE (05:30)
== END 2019-10-01 13:33 | disposition home or self-care (01) ==
LOC: ED 09:54 → 2W 13:20 → INTOOBSV 13:20 → SUATTDRO 13:20 → 2W 15:37

== ENCOUNTER 2020-03-18 15:11 | Inpatient (IN) ==
[2020-03-18 15:54] LABS: Basophils # (auto) 0.02 K/uL (0-0.2); Basophils % (auto) 0.3 %; Eosinophils # (auto) 0.08 K/uL (0-0.5); Eosinophils % (auto) 1.1 %; Hematocrit (blood only) 35.3 % (37-47); Hemoglobin 11.2 g/dL (12.0-16.0); Immature Granulocytes # (auto) 0.01 K/uL (0.00-0.02); Immature Granulocytes % (auto) 0.1 %; Lymphocytes # (auto) 0.78 K/uL (1.2-3.4); Lymphocytes % (auto) 10.7 %; Mean Corpuscular Hemoglobin 26.6 pg (25-34); Mean Corpuscular Hgb Conc 31.7 g/dL (32-36); Mean Corpuscular Volume 83.8 fL (80-100); Mean Platelet Volume 9.8 fL (7.4-10.4); Monocytes % (auto) 16.5 %; Neutrophils % (auto) 71.3 %; Platelet Count 447 K/uL (130-400); RDW Coefficient of Variation 16.1 % (11.5-14.5); RDW Standard Deviation 49.1 fL (36.4-46.3); Red Blood Count 4.21 M/uL (4.2-5.4); White Blood Count 7.29 K/uL (4.8-10.8)
[2020-03-18 16:30] LABS: Alanine Aminotransferase 19 U/L (12-78); Albumin Level 2.5 gm/dl (3.4-5.0); Aspartate Aminotransferase 14 U/L (15-37); BUN Creatinine Ratio 18.3 (10-20); Blood Urea Nitrogen 29 mg/dl (7-18); Calcium 9.2 mg/dl (8.5-10.1); Carbon Dioxide 27 mmol/L (21-32); Chloride 100 mmol/L (98-107); Est GFR (Non-African American) 31.9; Glucose 129 mg/dl (70-99); Lipase 52 U/L (73-393); Potassium 3.7 mmol/L (3.5-5.1); Sodium 134 mmol/L (136-145)
[2020-03-18 16:33] LABS: Albumin Globulin Ratio 0.5 (0.9-2); Alkaline Phosphatase 206 U/L (45-117); Bilirubin,Total 0.2 mg/dl (0.2-1); Total Protein 7.5 gm/dl (6.4-8.2)
[2020-03-18] MEDS ORDERED: KETOROLAC TROMETHAMINE 15 MG/ML VIAL IV ONE (18:41)
[2020-03-18] MEDS ORDERED: SODIUM CHLORIDE 0.9% 1000ML 1,000 ML IV ONE (18:59)
--- NOTE | 2020-03-18 19:12 | XRay Report ---
XR knee RT 3V CLINICAL HISTORY: Right knee pain status post trauma COMPARISON: February 2014 DISCUSSION: Bones are osteopenic. No acute fractures or dislocations are visualized. There is no radi ographic evidence of a significant joint effusion. IMPRESSION: No fractures or dislocations identified. ACT 112: Negative or not required by law. Electronically signed by: Justice Mcclure M.D. 03/18/2020 7:10 PM
--- NOTE | 2020-03-18 19:14 | Emergency Department Note ---
Impression & Plan Falls, Contusion of knee, right, Weakness, Lumbar back pain ED Provider Note Provider: Dennis Bynum MD DATE OF SERVICE: 03/18/2020 CHIEF COMPLAINT: Weakness, falls HISTORY OF PRESENT ILLNESS: Patient is a 74-year-old female with a past medical history of GERD, DVT, hypothyroidism, appendiceal cancer, UTI presenting today after multiple falls. Presents with daughter who relays majority of history per the patient's request. Evidently has had issues with her back over last several weeks and seen here in middle February. Diagnosed with a endplate fracture at the time and sent home on Tylenol with codeine. Poorly controlled pain and primary doctors over the past week has given her some oxycodone which is caused some hallucinations and more frequent falls. The last 2 days partly for falls. Patient does states she struck her head. Denies head pain at this time, chest pain, shortness of breath, or nausea. Does endorse that she has some intermittent abdominal pain and significant pain from her lower back and some bilateral pain in the legs. Patient does some bruising on her right knee. Patient has been ambulatory but her legs do seem to give out at times. Lives at home with her and uses a walker to ambulate but daughter has concerns about noted to be at home at this time. Not currently on active chemotherapy. No fevers reported. Seen initially at the primary care's office and referred here for further evaluation. Reportedly had a positive urinalysis at the PCPs office today. History of resistant UTI reported. REVIEW OF SYSTEMS: A total of 10 review of systems was obtained and negative except as stated above in the HPI. PAST MEDICAL HISTORY: As noted above MEDICATIONS: Reviewed home medication list. SOCIAL HISTORY: Lives at home with in a [place]-story [place]. PHYSICAL EXAM: GENERAL: alert and oriented in no acute distress on stretcher Head: normocephalic and atraumatic EYES: No injection, discharge or icterus. PERRL NECK: Trachea midline. Supple. ENT: Mucous membranes pink and moist. Pharynx without erythema. There is a few white spots on the tongue but no mucosal or mucosal lesions otherwise noted. LUNGS: Airway patent. No retractions. Breath sounds clear HEART: Regular rate and rhythm. No chest wall tenderness ABDOMEN: Soft and non-tender, without guarding or rebound. BACK: Mild diffuse lower back and lumbar tenderness without appreciable crepitus or step-offs. SKIN: Acyanotic, warm, dry, without rashes EXTREMITIES: Without swelling, tenderness or deformity except for swelling with little tenderness around the right lateral knee. No proximal fibular head tenderness of particular note. NEUROLOGICAL: No focal deficits. No aphasia. No facial droop or slurred speech. Normal strength and tone in the extremities. Sensation to gross touch normal. EK bpm normal sinus rhythm with left anterior fascicular block. No acute ST segment elevation or depression. Normal QTC. CONTINUOUS CARDIAC MONITORING: was ordered and showed a heart rate of 66 bpm in normal sinus rhythm 1 view chest x-ray: Interpreted by myself with some blunting left costophrenic angle with small effusion. No significant cardiomegaly. Some prominence of the right hilar structures but no evidence of pneumothorax or pneumonia at this time. Patient's hypertension was referred to the hospitalist [facility] 15 HOSPITAL COURSE: 1824 Patient was first seen and H&P performed. 2117 Patient reassessed and updated. Patient was resting in bed. Updated on imaging findings. Discussed plan of care. Still awaiting patient urine sample. 2119 discussed with the [facility] hospitalist team. Patient's laboratory studies and imaging reviewed. Differential includes Mood disorder, infection, hypoglycemia, electrolyte abnormalities, cardiac sources, intracerebral event, toxicologic, trauma, neurologic, as well as other pathologies. IMPRESSION/MEDICAL DECISION MAKING: Patient presents with multiple falls likely precipitated by the narcotic pain medicine he is on for back pain. CT the head and cervical spine was completed. No acute traumatic injury. X-ray of the knee was completed as well. No acute traumatic injury noted. Looking for possible traumatic injury of the less likely. Given her history of cancer and pain in her legs as well as these episodes of weakness on having danitza new numbness in the lower legs lumbar spine MRI was ordered. Basic labs show no significant leukocytosis and actually improved anemia. Given small amount of Toradol and some IV fluids here. Renal function appears slightly worse than normal. Does endorse UA being positive at the PCPs office. History of UTI. Given renal function need to cover for resist ant enterococcus in his normal [place]. Will consider dose of daptomycin and ceftriaxone if we obtain a urine sample in the emergency department. Does not appear septic. No believe any blood cultures at this time. Given some IV fluid hydration. MRI of the spine shows superior endplate fracture of L5 likely subacute given the history of CT in the middle of February. Spinal stenosis noted with disc osteophyte at L3-L4. No other acute enhancing masses noted per the report. Discussed with the patient. Given the CT findings questioning a possible lung mass a chest x-ray is obtained without obvious large masses noted. In no respiratory distress at this time. Patient felt unsafe going home due to her ambulatory dysfunction and frequent falls. Also is a history of resistant UTI although still pending a urine sample here. Given this she was is further observation here and the hospitalist team was contacted. The small bumps on the tongue do not appear consistent with oral candidiasis or vesicular lesions. Question nonspecific lingular papillitis. DIAGNOSIS: Weakness, falls, right knee contusion, lumbar back pain DISPOSITION: Hospitalist will evaluate Patient was agreeable with this plan. Past Med/Surg History Social History Smoking Status: Never smoker Second Hand Exposure: No; Hx Alcohol Use: No Hx Substance Use: No Preferred Language: Slovenian Communication Ability: Effective Variety Performer Required: No Beliefs That Will Affect Care: None marital status: Current Living Situation: Spouse Feels Safe at Home: Yes Allergies Allergies Allergy/AdvReac Type Severity Reaction Status Date / Time oxycodone Allergy Intermediate DYSPNEA Verified 03/18/20 21:27 opium tincture AdvReac Intermediate HALLUCINATI Verified 02/22/20 14:48 ONS Ethanol AdvReac Intermediate HALLUCINATI Uncoded 02/22/20 14:48 ONS Home Meds Home Medications Medication Instructions Recorded Confirmed gabapentin 100 mg PO BID 12/23/18 03/18/20 levothyroxine 100 mcg PO QAM 12/23/18 03/18/20 pantoprazole 40 mg PO BID 12/23/18 03/18/20 zolpidem 10 mg PO HS 12/23/18 03/18/20 PreserVision AREDS-2 1 tab PO BID 01/30/19 03/18/20 polysaccharide iron complex 150 mg PO QAM 01/30/19 03/18/20 [Poly-Iron] Creon 3 cap PO WM 09/30/19 03/18/20 Bifidobacterium infantis [Align] 4 mg PO QAM 02/22/20 03/18/20 cholecalciferol (vitamin D3) 25 mcg PO QAM 02/22/20 03/18/20 [Vitamin D3] cyanocobalamin (vitamin B-12) 2,500 mcg SUBLINGUAL QAM 02/22/20 03/18/20 [Vitamin B-12] hydrocortisone 1 applic TOPICAL BID 02/22/20 03/18/20 ketorolac 1 drp OPHTHALMIC (EYE) BID 02/22/20 03/18/20 lisinopril 20 mg PO QAM 02/22/20 03/18/20 prednisolone acetate 1 drp OPHTHALMIC (EYE) BID 02/22/20 03/18/20 venlafaxine 100 mg PO BID 02/22/20 03/18/20 Previous Rx's Medication Instructions Recorded acetaminophen-codeine 1 tab PO Q4H PRN #15 tab 02/22/20 [Tylenol-Codeine #3] Results & Data (ED) Vital Signs Vital Signs - 24 hr 03/18/20 15:28 03/18/20 19:36 03/18/20 21:00 Temperature 37.1 C Temperature Source Oral Pulse Rate 80 Pulse Rate [Finger] 66 Pulse Rhythm [Finger] Regular Respiratory Rate 18 18 Respiratory Effort / Characteristics Non-Labored Spontaneous Respiratory Depth Normal Respiratory Pattern Regular Blood Pressure 121/84 Blood Pressure [Right Arm] 140/98 140/98 Blood Pressure Mean 96 Blood Pressure Mean [Right Arm] 112 112 Blood Pressure Position Sitting Blood Pressure Position [Right Arm] Lying Pulse Oximetry 94 95 Oxygen Delivery Method Room Air Sepsis Recent Fever Within 48 Hours No Sepsis New/Unexplained Change in Mental Status No Sepsis Action Taken by Nursing No Action Required 03/18/20 23:00 Temperature Temperature Source Pulse Rate Pulse Rate [Finger] Pulse Rhythm [Finger] Respiratory Rate Respiratory Effort / Characteristics Respiratory Depth Respiratory Pattern Blood Pressure Blood Pressure [Right Arm] 136/93 Blood Pressure Mean Blood Pressure Mean [Right Arm] 107 Blood Pressure Position Blood Pressure Position [Right Arm] Pulse Oximetry Oxygen Delivery Method Sepsis Recent Fever Within 48 Hours Sepsis New/Unexplained Change in Mental Status Sepsis Action Taken by Nursing Laboratory Data Result diagrams: 03/18/20 15:40 03/18/20 15:40 Lab Results 03/18/20 03/18/20 Range/Units 15:40 15:40 WBC 7.29 (4.8-10.8) K/uL RBC 4.21 (4.2-5.4) M/uL Hgb 11.2 L (12.0-16.0) g/dL Hct 35.3 L (37-47) % MCV 83.8 (80-100) fL MCH 26.6 (25-34) pg MCHC 31.7 L (32-36) g/dL RDW Std Deviation 49.1 H (36.4-46.3) fL RDW Coeff of Gina 16.1 H (11.5-14.5) % Plt Count 447 H (130-400) K/uL MPV 9.8 (7.4-10.4) fL Immature Gran % (Auto) 0.1 % Neut % (Auto) 71.3 % Lymph % (Auto) 10.7 % [place] % (Auto) 16.5 % Eos % (Auto) 1.1 % Baso % (Auto) 0.3 % Neut # (Auto) 5.20 (1.4-6.5) K/uL Lymph # (Auto) 0.78 L (1.2-3.4) K/uL [place] # (Auto) 1.20 H (0.11-0.59) K/uL Eos # (Auto) 0.08 (0-0.5) K/uL Baso # (Auto) 0.02 (0-0.2) K/uL Immature Gran # (Auto) 0.01 (0.00-0.02) K/uL Sodium 134 L (136-145) mmol/L Potassium 3.7 (3.5-5.1) mmol/L Chloride 100 (98-107) mmol/L Carbon Dioxide 27 (21-32) mmol/L Anion Gap 7.0 (3-11) BUN 29 H (7-18) mg/dl Creatinine 1.56 H (0.6-1.2) mg/dl Est Cr Clr Drug Dosing Not Reportable Est GFR ( Amer) 37.0 Est GFR (Non-Af Amer) 31.9 BUN/Creatinine Ratio 18.3 (10-20) Glucose 129 H (70-99) mg/dl Calcium 9.2 (8.5-10.1) mg/dl Total Bilirubin 0.2 (0.2-1) mg/dl AST 14 L (15-37) U/L ALT 19 (12-78) U/L Alkaline Phosphatase 206 H (45-117) U/L Total Protein 7.5 (6.4-8.2) gm/dl Albumin 2.5 L (3.4-5.0) gm/dl Globulin 5.0 H (2.5-4.0) gm/dl Albumin/Globulin Ratio 0.5 L (0.9-2) Lipase 52 L (73-393) U/L Administered Medications Discontinued Medications Gadobutrol (Gadavist 65ml) 7 ml IV ONCE ONE Stop: 03/18/20 20:26 Last Admin: 03/18/20 20:26 Dose: 7 ml Documented by: [id number] Discharge Plan Visit Data Chief Complaint: Back Injury/Pain Stated Complaint: LEG PAIN,REF BY DOC ED Provider: Dennis Bynum Discharge Problem: Falls, Contusion of knee, right, Weakness, Lumbar back pain Patient Disposition: Being Evaluated by Hospitalist Condition: Good Prescriptions Prescriptions: No Action levothyroxine 100 mcg tablet 100 mcg PO QAM RF: 0 gabapentin 100 mg capsule 100 mg PO BID RF: 0 zolpidem 10 mg tablet 10 mg PO HS RF: 0 pantoprazole 40 mg tablet,delayed release (DR/EC) 40 mg PO BID RF: 0 polysaccharide iron complex [Poly-Iron] 150 mg iron Capsule 150 mg PO QAM RF: 0 PreserVision AREDS-2 [phone]-mg Capsule 1 tab PO BID RF: 0 Creon 36,000-114,000- 180,000 unit capsule,delayed release(DR/EC) 3 cap PO WM RF: 0 cyanocobalamin (vitamin B-12) [Vitamin B-12] 2,500 mcg Tablet, Sublingual 2,500 mcg SUBLINGUAL QAM RF: 0 lisinopril 20 mg tablet 20 mg PO QAM RF: 0 ketorolac 0.5 % drops 1 drp ophthalmic (eye) BID RF: 0 venlafaxine 100 mg tablet 100 mg PO BID RF: 0 prednisolone acetate 1 % drops,suspension 1 drp ophthalmic (eye) BID RF: 0 hydrocortisone 2.5 % ointment 1 applic TOPICAL BID RF: 0 cholecalciferol (vitamin D3) [Vitamin D3] 25 mcg (1,000 unit) Tablet 25 mcg PO QAM RF: 0 Align 4 mg Capsule 4 mg PO QAM RF: 0 acetaminophen-codeine [Tylenol-Codeine #3] 300-30 mg tablet 1 tab PO Q4H PRN (Reason: pain) Qty: 15 RF: 0 Referrals Referrals: Ghassan Alva [Primary Care Provider] -
--- NOTE | 2020-03-18 19:24 | CT Scan Report ---
CT head/brain wo con CLINICAL HISTORY: Head pain status post trauma COMPARISON STUDY: MRI the brain dated 12/13/2017 TECHNIQUE: Axial CT of the brain is performed from the vertex to the skull base. IV contrast was not administered for this examination. A dose lowering technique was utilized adhering to the principles of ALARA. CT DOSE: FINDINGS: No intra or extra-axial mass lesions are visualized. There is no CT evidence of acute cortical infarc tion. There is no evidence of midline shift. There is no acute hemorrhage. No calvarial fractures ar e visualized. There are moderate patchy white matter hypodensities likely on a small vessel basis. There is no evidence of pathologic ventricular dilatation. There is no evidence of acute sinusitis IMPRESSION: No acute intracranial findings ACT 112: Negative or not required by law. Electronically signed by: Justice Mcclure M.D. 03/18/2020 7:23 PM
--- NOTE | 2020-03-18 19:31 | CT Scan Report ---
CT OF THE CERVICAL SPINE CLINICAL HISTORY: Neck pain status post trauma COMPARISON STUDY: Soft tissue neck CT scan dated 11/09/2011 CT DOSE: 1063.64 mGy.cm TECHNIQUE: CT scan of the cervical spine was performed from the skull base to the thoracic inlet. Maryan ges are reviewed in the axial, sagittal, and coronal planes. IV contrast was not administered for thi s examination. A dose lowering technique was utilized adhering to the principles of ALARA. FINDINGS: There is no apical pneumothorax. There is a 15 mm right lobe thyroid nodule containing coarse calcifi cation. This nodule measured 12 mm in 2012 containing no calcifications. There is a partially visuali zed 15 mm left apical opacity. This is not present on the preceding neck CT scan. There is equivocal left jugular bulb dehiscence. The prevertebral soft tissues are normal. No fractures or subluxations are visualized. There are multilevel degenerative changes IMPRESSION: 1. No acute fractures or traumatic subluxations identified 2. Partially visualized 15 mm left apical pulmonary opacity. This was not visualized on a neck CT sca n performed in 2011. A nonemergent chest CT scan is recommended in follow-up 3. 15 mm right lobe thyroid nodule containing coarse calcification. This nodule measured 12 mm in 201 2 ACT 112: Negative or not required by law. Electronically signed by: Justice Mcclure M.D. 03/18/2020 7:30 PM
[2020-03-18] MEDS ORDERED: GADOBUTROL 65ML VIAL IV ONE (20:25)
--- NOTE | 2020-03-18 20:44 | Magnetic Resonance Report ---
MR lumbar spine wo/w con CLINICAL HISTORY: pain, falls, weakness legs, hx cancer TECHNIQUE: Sagittal and axial T1, T2 and STIR images were obtained. Pre and postcontrast images were acquired. The patient received 7 cc of intravenous Gadavist COMPARISON STUDY: CT scan dated 02/22/2020 OBSERVATIONS: There is superior endplate L5 marrow edema, consistent with an acute/subacute fracture. There is an o ld superior endplate L4 compression deformity. There is an old T10 compression fracture L1-2: There is a minor circumferential disc bulge. There is no significant spinal or foraminal stenos is L2-3: There is a circumferential disc bulge. There is mild spinal stenosis. There is minor bilateral foraminal narrowing L3-4: There is a right posterior lateral disc osteophyte complex with distortion of the right anterol ateral aspect of thecal sac. There is mild spinal stenosis. There is mild right-sided foraminal narro wing L4-5: There is a circumferential disc bulge. There is severe spinal stenosis. There is mild right-aliya ed foraminal narrowing L5-S1: There is a circumferential disc bulge. There is mild to moderate spinal canal narrowing. The conus medullaris and cauda equina appear normal. Postcontrast images reveal no pathologically enhancing masses. IMPRESSION: 1. Superior endplate L5 marrow edema, consistent with acute/subacute fracture. 2. Multilevel spondylytic changes, most significant for a right posterior lateral disc osteophyte com plex at the L3-4 level, and severe spinal stenosis at the L4-5 level. ACT 112: Negative or not required by law. Electronically signed by: Justice Mcclure M.D. 03/18/2020 8:43 PM
--- NOTE | 2020-03-18 22:30 | History & Physical Report ---
Date of Service March 18, 2020 Assessment & Plan (1) Falls: Gris Avila is a 74 year old woman with PMH significant for Stage IV appendiceal Cancer who has had progressive weakness and increasing falls. Weakness and falls Progressive, patient not doing well at home, even using walker is elderly and having difficulty caring for her Cause is likely multifactorial, patient certainly appears dehyrdrated and malnourished with what appears to be a pre renal KELLY and a low albumin, but patient had been eating better and participating well with PT before Wednesday I would guess driving force is her UTI, UTI will treat with Ceftriaxone x1 dose and await urinarlysis and culture results In past has had resistant enterococcus UTI, given patient's non septic appearance and stable vitals will start with ceftriaxone but low threshold to switch to cubicin if she becomes septic/more symptomatic KELLY Likely pre renal, will rehydrate with IV fluid in addition to encouraging PO intake Repeat BMP for AM Thyroid nodule Slow growth of thyroid nodule from previous scan 12mm to 15 mm Will check TSH, does not appear to be related to her current presentation but may warrant outpatient workup Pulmonary imaging findings New airspace opacity in lung apex on left, possible pleural effusion on left, Will get chest CT to better evaluate concern for possible metastasis DVT PPx: Heparin F/E/N: NSS 100 mls/hour DIspo: Admit to address UTI and KELLY with IV fluid and abx, will get PT/OT co nsult and patient may need placement in Rehab or SNF unless she markedly improves with treatment, case management consulted DNR/DNI (2) Contusion of knee, right: (3) Weakness: (4) Lumbar back pain: (5) Hypothyroidism: (6) History of DVT (deep vein thrombosis): (7) Depression: (8) Complicated UTI (urinary tract infection): History of Present Illness Chief Complaint: Weakness, falls, UTI, KELLY Primary Care Provider: Ghassan Alva Gris Avila is a jocelin 74 year old woman with a past medical history significant for stage IV metastatic appendiceal cancer (Her oncologist has suggested that she may not be a candidate for further chemo or surgeries but she has an appointment scheduled for this month with him in [place]), chronic lower back pain and radiculopathy, hypertension, depression and insomnia who presented to me in clinic today for multiple falls. Patient is somewhat confused and daughter says that she has been much weaker and falling more frequently. She had been to ED last week for a fall and was found to have a fractured vertebral body. She has been getting outpatient PT and doing well until last Wednesday when she performed much more poorly at PT and was almost unable to participate, PT called daughter to express their concern and recommended that she see her PCP immediately. Over the weekend Ms Avila fell four more times despite constant surveillance and using a walker. Patient made first appointment with our office and after evaluation including physical exam with profound weakness and delirium and urinalysis showing + leukocytes, + leuk esterase, +blood, +Nitrites decided to send patient to emergency department for urgent evaluation and antibiotics. In ED patient was found to have an KELLY with creatinine elevated to 1.56 from baseline of 1 and hypoalbuminemia. Imaging was ordered showing no new fractures or subluxations beyond the known L5, Lumbar spine MRI as below 1. Superior endplate L5 marrow edema, consistent with acute/subacute fracture. 2. Multilevel spondylytic changes, most significant for a right posterior lateral disc osteophyte complex at the L3-4 level, and severe spinal stenosis at the L4-[address] also incidentally found a previously unknown pulmonary opacity alfredito suring 15 mm in left lung apex and an increase in size in a previously documented thyroid nodule from 12 mm to 15 mm. Chest XR showing what appears to be a possible left sided pleural effusion and e levated right hemidiaphragm. Patient is feeling well, after IV fluids she is already feeling more clear of mind, denies any acute symptoms beyond her weakness and back pain. No fevers, no chills, no recent travel or sick contacts. Allergies Allergy/AdvReac Type Severity Reaction Status Date / Time oxycodone Allergy Intermediate DYSPNEA Verified 03/18/20 21:27 opium tincture AdvReac Intermediate HALLUCINATI Verified 02/22/20 14:48 ONS Ethanol AdvReac Intermediate HALLUCINATI Uncoded 02/22/20 14:48 ONS Home Medications Home Medications Medication Instructions Recorded Confirmed Type gabapentin 100 mg PO BID 12/23/18 03/18/20 History levothyroxine 100 mcg PO QAM 12/23/18 03/18/20 History pantoprazole 40 mg PO BID 12/23/18 03/18/20 History zolpidem 10 mg PO HS 12/23/18 03/18/20 History PreserVision AREDS-2 1 tab PO BID 01/30/19 03/18/20 History polysaccharide iron complex 150 mg PO QAM 01/30/19 03/18/20 History [Poly-Iron] Creon 3 cap PO WM 09/30/19 03/18/20 History Bifidobacterium infantis [Align] 4 mg PO QAM 02/22/20 03/18/20 History acetaminophen-codeine 1 tab PO Q4H PRN #15 tab 02/22/20 03/18/20 Rx [Tylenol-Codeine #3] cholecalciferol (vitamin D3) 25 mcg PO QAM 02/22/20 03/18/20 History [Vitamin D3] cyanocobalamin (vitamin B-12) 2,500 mcg SUBLINGUAL QAM 02/22/20 03/18/20 History [Vitamin B-12] hydrocortisone 1 applic TOPICAL BID 02/22/20 03/18/20 History ketorolac 1 drp OPHTHALMIC (EYE) BID 02/22/20 03/18/20 History lisinopril 20 mg PO QAM 02/22/20 03/18/20 History prednisolone acetate 1 drp OPHTHALMIC (EYE) BID 02/22/20 03/18/20 History venlafaxine 100 mg PO BID 02/22/20 03/18/20 History Past Med/Surg History Social History Smoking Status: Never smoker Second Hand Exposure: No; Hx Alcohol Use: No Hx Substance Use: No Preferred Language: Kuwaiti Communication Ability: Effective Children'S Attendant Required: No Beliefs That Will Affect Care: Roman Catholic Roman Catholic Beliefs: Worship marital status: Current Living Situation: Spouse Other Information That Helps Us Care for You: No Feels Safe at Home: Yes Safety Concerns: Feels Safe At This Time Review of Systems Review of Systems: All systems reviewed & are unremarkable except as noted in HPI & below Physical Exam Constitutional: + altered mental status (Improving, though not able to keep dates or times straight distractable); no acute distress Eyes: PERRL, conjunctivae normal, anicteric sclerae ENMT: external ear and nose normal, oropharynx normal Respiratory: normal respiratory effort, lungs clear to auscultation Cardiovascular: RRR, no murmur, no edema Gastrointestinal (Abdomen): normal bowel sounds, soft, nontender, no hepatosplenomegaly Musculoskeletal: Global proximal muscle weakness, no acute or focal weakness, Hip flexion recreates some radiculapthic pain bilaterally. Neurologic: patellar DTR's 2+ bilat, sensation intact CN's II-XI intact bilaterally Results & Data Results & Data ([facility]) Vital Signs (Past 12 Hours) Vital Signs Temp Pulse Pulse Resp BP BP Pulse Ox 03/18/20 19:36 66 18 140/98 95 03/18/20 15:28 37.1 C 80 18 121/84 94 Code Status & VTE Plan VTE Prophylaxis Plan VTE Prophylaxis will be ordered: Yes Supervising Physician Co-Signing Physician Notes Attending addendum: I have physically seen this patient, have supervised the medical residents activities, and agree with the H&P unless as otherwise noted. Assessment and Plan: Generalized weakness and increased frequency of falls- Address issues of dehydration and decreased appetite with malnourishment. Consult PT/OT. Treat underlying UTI. Urinary tract infection- Follow urine culture sensitivities. Continue ceftriaxone 1 g IV daily KELLY- Creatinine 1.56, with range 1.02-1.18 Placed on NSS at 80 mils per hour. Repeat laboratories in a.m. thyroid nodule- Increase in size from 12 to 15 mm since 2012. Can be addressed as an outpatient Right pleural effusion/airspace opacity left- Order CT chest for further assessment Remainder of orders and notations as noted. Resident Activity Tracking Resident Involvement: Resident Care Provided Care Provided: Adult Hospital Medicine (1) Falls Encounter type: initial encounter Qualified Code(s): W19.XXXA - Unspecified fall, initial encounter (2) Contusion of knee, right Encounter type: initial encounter Qualified Code(s): S80.01XA - Contusion of right knee, initial encounter
[2020-03-19] MEDS ORDERED: ACETAMINOPHEN 325 MG TAB PO PRN (01:00)
[2020-03-19] MEDS ORDERED: ACETAMINOPHEN W/CODEINE #3 1 TAB PO PRN (01:00)
[2020-03-19] MEDS ORDERED: ZOLPIDEM TARTRATE 5 MG TAB PO PRN (01:00)
[2020-03-19] MEDS ORDERED: ONDANSETRON INJ 2 MG/ML 2 ML VIAL IV PRN (01:00)
[2020-03-19] MEDS ORDERED: POLYETHYLENE (MIRALAX) 17 GM PACK PO PRN (01:00)
[2020-03-19] MEDS ORDERED: SODIUM CHLORIDE 0.9% 1000ML 500 ML IV ONE (01:51)
[2020-03-19] MEDS: SODIUM CHLORIDE 0.9% 1000ML 1,000 ML IV SCH ×2 (02:43→12:57)
[2020-03-19] MEDS: VENLAFAXINE HCL 50 MG TAB PO SCH ×3 (02:43→19:29)
[2020-03-19] MEDS: cefTRIAXone SODIUM 1,000 MG in DEXTROSE 5% 50 ML IV SCH (02:44)
[2020-03-19] MEDS: LEVOTHYROXINE SODIUM 100 MCG TABLET PO SCH (05:58)
--- NOTE | 2020-03-19 06:37 | XRay Report ---
XR chest 1V portable CLINICAL HISTORY: weakness dyspnea COMPARISON STUDY: 09/25/2019 FINDINGS: Atelectasis versus minimal infiltrative change both lung bases. Minimal upper lungs are carina ar. Chronic elevation right hemidiaphragm. IMPRESSION: Minimal bibasilar atelectatic change. ACT 112: Negative or not required by law. The above report was generated using voice recognition software. It may contain grammatical, syntax or spelling errors. Electronically signed by: Kendell Chandler M.D. 03/19/2020 6:35 AM
[2020-03-19] MEDS ORDERED: HYDROCORTISONE 2.5% CR 30 GM TUBE EXT PRN (09:00)
[2020-03-19] MEDS ORDERED: GABAPENTIN 100 MG CAP PO SCH (09:00)
[2020-03-19] MEDS: PANCREAZE (LIPASE 10,500U) CAP PO SCH ×3 (09:27→17:50)
[2020-03-19] MEDS: KETOROLAC 0.5% OP SOLN 5 ML BTL OP SCH ×2 (09:28→19:29)
[2020-03-19] MEDS: LACTOBACILLUS ACIDOPHILUS (FLORANEX) TAB PO SCH (09:29)
[2020-03-19] MEDS: CEROVITE ADV FORMULA TAB PO SCH (09:31)
[2020-03-19] MEDS: ENOXAPARIN INJ 40 MG/0.4 ML SYR SQ SCH (09:31)
[2020-03-19] MEDS: PANTOprazole 40 MG TAB PO SCH ×2 (09:32→19:30)
[2020-03-19] MEDS: prednisoLONE acetate 1% OP SUSP 5 ML BTL OP SCH ×2 (09:33→19:28)
[2020-03-19] MEDS: CHOLECALCIFEROL 1,000 UNITS 25 MCG TAB PO SCH (09:33)
[2020-03-19] MEDS: CYANOCOBALAMIN (VITAMIN B-12) 2,500 MCG TAB.SUBL SL SCH (09:33)
[2020-03-19] MEDS: IRON POLYSACCHARIDE COMPLEX 150 MG CAPSULE PO SCH (09:33)
[2020-03-19 12:05] LABS: BUN Creatinine Ratio 17.9 (10-20); Calcium 8.9 mg/dl (8.5-10.1); Creatinine Clr Calc Pharmacy 38.8 ml/min; Est GFR (African American) 50.3; Est GFR (Non-African American) 43.4
--- NOTE | 2020-03-19 17:40 | Hospitalist Progress Note ---
Date of Service March 19, 2020 Assessment & Plan (1) Falls: Gris Avila is a 74 year old woman with PMH significant for Stage IV appendiceal Cancer who has had progressive weakness and increasing falls who also presents with worsening confusion in the last week. Weakness and falls/Acute encephalopathy-likely secondary to h/o lumbar spinal stenosis and radiculopathy causing pain and weakness and then was taking new prescription for oxycodone which caused confusion Progressive, patient not doing well at home, even using walker is elderly and having difficulty caring for her No longer confused, encephalopathy resolved after stopping oxycodone and treating UTI -also with pre renal KELLY and a low albumin, UTI contributing -Continue to treat UTI, KELLY now resolved with IVFs -MRI L-spine reviewed and with severe stenosis L4-5, L5 fracture -PT/OT consults -STOP all opioids L5 vertebral fracture/Lumbar spinal stenosis with LLE radiculopathy -increase gabapentin to 200mg po bid and next Tylenol increased dose of 1000 mg p.o. scheduled every 8 hours for pain control and effort to avoid opioids -consult Ortho spine for further opinion on course of treatment UTI will treat with Ceftriaxone and await urine culture results-->checked with Dr. Andrea today and no results yet in [facility] lab system In past has had resistant enterococcus UTI, given patient's non septic appearance and stable vitals will start with ceftriaxone but low threshold to switch to cubicin if she becomes septic/more symptomatic KELLY-resolved, creatinine down to 1.2 from 1.5 Likely pre renal, secondary to poor p.o. intake Also with history of urinary retention-we will bladder scan and straight cath for PVR greater than 350 mL's Repeat BMP in the a.m. Hypothyroidism/thyroid nodule-seen on imaging of the CT cervical spine Slow growth of thyroid nodule from previous scan 12mm to 15 mm TSH normal-does not appear to be related to her current presentation but may warrant outpatient workup -Continue levothyroxine Pulmonary imaging findings New airspace opacity in lung apex on left, possible pleural effusion on left, Will get chest CT to better evaluate concern for possible metastasis-still pending -Also noted to have left jugular bulb dehiscence on imaging-I discussed with the on-call radiologist today who confirmed this is unchanged from 2012 and therefore is not clinically significant Pancreatic insufficiency-secondary to partial resection of pancreas -Continue Creon Metastatic appendiceal carcinoid-with history of numerous surgeries for debulking and resection of tumors performed by surgeon in [place] -Follow-up as an outpatient No acute issues Anxiety-continue Effexor GERD-stable continue PPI DVT PPx: Lovenox SQ F/E/N: DC IV fluids DIspo: Continued stay, appreciate PT/OT evaluations and patient may need placement in Rehab or SNF unless she markedly improves with treatment, case management consulted DNR/DNI (2) Complicated UTI (urinary tract infection): (3) Contusion of knee, right: (4) Weakness: (5) Lumbar back pain: (6) Hypothyroidism: (7) History of DVT (deep vein thrombosis): (8) Depression: (9) Anxiety: (10) Appendiceal carcinoid tumor: (11) Pancreatic insufficiency: (12) DVT prophylaxis: (13) Anemia: (14) GERD (gastroesophageal reflux disease): (15) Spinal stenosis, lumbar region with neurogenic claudication: (16) Fracture, lumbar vertebra, compression: (17) Peripheral neuropathy: Admission and Anticipated Discharge Date Admission Date: March 18, 2020 Subjective Patient feeling little bit better today but still having pains from the left buttock radiating down the back of the left thigh. She was able to walk with a rolling walker short distances around the room but is still worried that her legs will feel like Jell-O and give out like they did before when she had multiple falls in the last 2 weeks. She also has pain in the lower middle back. She has only urinated once today and review of urology records reveals she has a long history of urinary retention with what sounds like overflow incontinence. At one point, she tried to self catheterize but did not like doing it and stopped. She denies chest pains or shortness of breath, denies abdominal pains or nausea. Her appetite is low. Review of Systems Review of Systems: All systems reviewed & are unremarkable except as noted in HPI & below Physical Exam Constitutional: WD/WN, vitals as above Eyes: + anicteric sclerae ENMT: external ear and nose normal, oropharynx normal Neck: trachea midline, no thyromegaly Respiratory: normal respiratory effort, lungs clear to auscultation Cardiovascular: RRR, no murmur, no edema Chest (Breasts): Chest: normal inspection of chest Gastrointestinal (Abdomen): normal bowel sounds, soft, nontender, no hepatosp lenomegaly Musculoskeletal: Extremities: extremities normal to inspection; no cyanosis and no clubbing Skin: no rashes, warm and dry Neurologic: moves all extremities and awake; no focal motor deficits (5/5 strength throughout lower extremities bilaterally) Motor/Sensory: no sensory deficit (Sensation intact to light touch throughout bilateral lower extremities) Psychiatric: A+Ox3, euthymic affect Lymphatic: no lymphedema Results & Data Results & Data ([facility]) Vital Signs (Past 12 Hours) Vital Signs Temp Pulse Pulse Resp BP Pulse Ox 03/19/20 15:12 36.4 C L 53 L 16 130/77 95 03/19/20 07:33 36.7 C 61 18 148/93 H 95 Laboratory Results 03/19/20 03/19/20 03/18/20 Range/Units 12:10 11:26 15:40 Sodium 138 (136-145) mmol/L Potassium 3.9 (3.5-5.1) mmol/L Chloride 108 H (98-107) mmol/L Carbon Dioxide 28 (21-32) mmol/L Anion Gap 2.0 L (3-11) BUN 22 H (7-18) mg/dl Creatinine 1.21 H D (0.6-1.2) mg/dl Est Cr Clr Drug Dosing 38.8 ml/min Est GFR ( Amer) 50.3 Est GFR (Non-Af Amer) 43.4 BUN/Creatinine Ratio 17.9 (10-20) Glucose 129 H (70-99) mg/dl Calcium 8.9 (8.5-10.1) mg/dl TSH 1.190 03/18/20 Range/Units 15:40 Sodium (136-145) mmol/L Potassium (3.5-5.1) mmol/L Chloride (98-107) mmol/L Carbon Dioxide (21-32) mmol/L Anion Gap (3-11) BUN (7-18) mg/dl Creatinine (0.6-1.2) mg/dl Est Cr Clr Drug Dosing ml/min Est GFR ( Amer) Est GFR (Non-Af Amer) BUN/Creatinine Ratio (10-20) Glucose (70-99) mg/dl Calcium (8.5-10.1) mg/dl TSH Cancelled PG Care Time/CCT Total # of Minutes Spent Total Time Spent with Patient: Total time spent is greater than 50% in coordination of care (as documented) at patient's floor/unit and/or counseling patient: Coding Level of Care Code 77025 Subseq Hosp Care Lvl 3 Diagnoses Falls W19.XXXA Encounter type: initial encounter Complicated UTI (urinary tract infection) N39.0 Contusion of knee, right S80.01XA Encounter type: initial encounter Weakness R53.1 Lumbar back pain M54.5 Hypothyroidism E03.9 History of DVT (deep vein thrombosis) Z86.718 Depression F32.9 Anxiety F41.9 Appendiceal carcinoid tumor D3A.020 Pancreatic insufficiency K86.89 DVT prophylaxis Z29.9 Anemia D64.9 GERD (gastroesophageal reflux disease) K21.9 Esophagitis presence: esophagitis presence not specified Spinal stenosis, lumbar region with neurogenic claudication M48.062 Fracture, lumbar vertebra, compression S32.000A Peripheral neuropathy G62.9 (1) Falls Encounter type: initial encounter Qualified Code(s): W19.XXXA - Unspecified fall, initial encounter (2) Contusion of knee, right Encounter type: initial encounter Qualified Code(s): S80.01XA - Contusion of right knee, initial encounter (3) GERD (gastroesophageal reflux disease) Esophagitis presence: esophagitis presence not specified Qualified Code(s): K21.9 - Gastro-esophageal reflux disease without esophagitis
[2020-03-19] MEDS: GABAPENTIN 100 MG CAP PO SCH (19:30)
--- NOTE | 2020-03-19 20:46 | Billing Data ---
Date of Service March 19, 2020 Coding Level of Care Code 83687 Initial Inpt Care Lvl 3
--- NOTE | 2020-03-19 20:51 | CT Scan Report ---
CT SCAN OF THE CHEST WITHOUT IV CONTRAST CLINICAL HISTORY: Pulmonary nodules. Clinical concern for metastatic disease. COMPARISON STUDY: Chest CT scans dated 12/26/2019 and 05/04/2017. Abdominal CT dated 02/22/2020. TECHNIQUE: CT scan of the thorax was performed from the thoracic inlet to the upper abdomen. Images are reviewed in the axial, sagittal, and coronal planes. IV contrast was not administered for this ex amination as per the referring clinician. A dose lowering technique was utilized adhering to the mahad cortes of [place]. CT DOSE: 313.71 mGy.cm FINDINGS: Thyroid: The thyroid gland is mildly enlarged and heterogeneous. Thoracic aorta: The thoracic aorta is normal in caliber and demonstrates standard 3-vessel arch anato my. Heart: The heart is mildly enlarged and without pericardial effusion. Lungs and pleural spaces: Evaluation of the lung parenchyma is significantly degraded by motion artif act. There is no airspace consolidation typical for pneumonia or pleural effusion. Foci of subsegment al atelectasis/scarring are seen at the lung bases. The trachea and central airways are clear. There is a 3 mm right lower lobe pulmonary nodule seen on image #100. This is unchanged from 2017 and of do ubtful significance. Mediastinum: There is no mediastinal lymphadenopathy. Stephanie: Not well assessed without IV contrast. Axillae: There is no axillary lymphadenopathy. Upper abdomen: There is a small hiatal hernia. Large peritoneal implants are partially visualized berenice ng the left lobe of liver. This contains calcification versus postoperative change. The larger implan t is seen on image #231 and measures approximately 6.5 cm. The partially imaged kidneys demonstrate c ortical atrophy. A 1.3 cm cyst is noted in the left lobe of liver. A normal spleen is not identified. Splenules are seen in the left upper quadrant. Skeletal structures: The skeletal structures are osteopenic. Degenerative change and hyperkyphosis is seen in the thoracic spine. Numerous thoracic compression deformities are noted. No lytic or blastic bony lesions are seen. A benign-appearing chondroid lesion is noted in the right proximal humerus. IMPRESSION: 1. Motion compromised examination. 2. There is no evidence of intrathoracic metastatic disease. 3. There is no airspace consolidation typical for pneumonia or pleural effusion. 4. A 3 mm right lower lobe pulmonary nodule is unchanged dating back to 2017 and of doubtful signific ance. 5. Mild cardiomegaly. 6. Large peritoneal implants are noted in the upper abdomen. 7. Additional findings as above. ACT 112: Negative or not required by law. Electronically signed by: Gavin Darnell M.D. 03/19/2020 8:49 PM
[2020-03-19] MEDS: ACETAMINOPHEN 500 MG TAB PO SCH (21:27)
[2020-03-20] MEDS ORDERED: MELATONIN 3 MG TAB PO PRN (00:57)
[2020-03-20] MEDS: cefTRIAXone SODIUM 1,000 MG in DEXTROSE 5% 50 ML IV SCH (01:08)
[2020-03-20] MEDS: ACETAMINOPHEN 500 MG TAB PO SCH ×3 (05:42→21:19)
[2020-03-20] MEDS: LEVOTHYROXINE SODIUM 100 MCG TABLET PO SCH (05:43)
[2020-03-20 07:06] LABS: Basophils # (auto) 0.03 K/uL (0-0.2); Basophils % (auto) 0.5 %; Hematocrit (blood only) 32.6 % (37-47); Hemoglobin 10.1 g/dL (12.0-16.0); Immature Granulocytes # (auto) 0.01 K/uL (0.00-0.02); Immature Granulocytes % (auto) 0.2 %; Lymphocytes # (auto) 1.71 K/uL (1.2-3.4); Lymphocytes % (auto) 25.8 %; Mean Corpuscular Hemoglobin 26.3 pg (25-34); Mean Corpuscular Volume 84.9 fL (80-100); Monocytes % (auto) 15.1 %; Neutrophils # (auto) 3.67 K/uL (1.4-6.5); Neutrophils % (auto) 55.4 %; Platelet Count 451 K/uL (130-400); RDW Coefficient of Variation 16.3 % (11.5-14.5); RDW Standard Deviation 50.7 fL (36.4-46.3); Red Blood Count 3.84 M/uL (4.2-5.4); White Blood Count 6.62 K/uL (4.8-10.8)
[2020-03-20 07:35] LABS: Alanine Aminotransferase 11 U/L (12-78); Aspartate Aminotransferase 9 U/L (15-37); BUN Creatinine Ratio 20.1 (10-20); Blood Urea Nitrogen 21 mg/dl (7-18); Calcium 8.5 mg/dl (8.5-10.1); Carbon Dioxide 28 mmol/L (21-32); Chloride 111 mmol/L (98-107); Creatinine Clr Calc Pharmacy 44.3 ml/min; Est GFR (African American) 59.1; Glucose 103 mg/dl (70-99); Potassium 3.9 mmol/L (3.5-5.1); Sodium 142 mmol/L (136-145)
[2020-03-20 07:39] LABS: Alkaline Phosphatase 156 U/L (45-117); Bilirubin Direct < 0.1 mg/dl (0-0.2); Bilirubin,Total 0.2 mg/dl (0.2-1); Total Protein 6.1 gm/dl (6.4-8.2)
[2020-03-20] MEDS: PANCREAZE (LIPASE 10,500U) CAP PO SCH ×3 (08:35→18:10)
[2020-03-20] MEDS: KETOROLAC 0.5% OP SOLN 5 ML BTL OP SCH ×2 (08:36→21:18)
[2020-03-20] MEDS: VENLAFAXINE HCL 50 MG TAB PO SCH ×2 (08:36→21:19)
[2020-03-20] MEDS: LACTOBACILLUS ACIDOPHILUS (FLORANEX) TAB PO SCH (08:36)
[2020-03-20] MEDS: PANTOprazole 40 MG TAB PO SCH ×2 (08:37→21:19)
[2020-03-20] MEDS: CEROVITE ADV FORMULA TAB PO SCH (08:37)
[2020-03-20] MEDS: CYANOCOBALAMIN (VITAMIN B-12) 2,500 MCG TAB.SUBL SL SCH (08:37)
[2020-03-20] MEDS: IRON POLYSACCHARIDE COMPLEX 150 MG CAPSULE PO SCH (08:38)
[2020-03-20] MEDS: GABAPENTIN 100 MG CAP PO SCH (08:38)
[2020-03-20] MEDS: prednisoLONE acetate 1% OP SUSP 5 ML BTL OP SCH ×2 (08:38→21:23)
[2020-03-20] MEDS: CHOLECALCIFEROL 1,000 UNITS 25 MCG TAB PO SCH (08:39)
[2020-03-20] MEDS: ENOXAPARIN INJ 40 MG/0.4 ML SYR SQ SCH (08:40)
--- NOTE | 2020-03-20 14:04 | Orthopedic Consultation ---
Date of Consultation March 20, 2020 Assessment & Plan (1) Spinal stenosis, lumbar region with neurogenic claudication: Patient has an MRI demonstrating evidence of compression fracture L5 severe lumbar spinal stenosis at L4-L5 and to some degree at L3-L4 and L5-S1. I reviewed these findings with the patient. I have suggested that we could consider possible surgery. At minimum it would require a kyphoplasty of L5 to provide some stabilization relief from the fracture as well as a decompression involving L3-4 and L4-5. Patient understands and would like to consider continued nonoperative care at this time. We will follow her throughout her stay. Present on Admission?: Yes History of Present Illness Reason for Consultation: Back and leg pain Attending Physician: Lesa Busby MD History of Present Illness This is a 74-year-old female presents with marked decline in status. She had a fall recently and now has an onset of significant lumbosacral back pain with radiation of the bilateral lower extremities left greater than right. Is markedly affected her ability to stand and ambulate. She does have an extensive medical history. Allergies Allergy/AdvReac Type Severity Reaction Status Date / Time oxycodone Allergy Intermediate DYSPNEA Verified 03/18/20 21:27 opium tincture AdvReac Intermediate HALLUCINATI Verified 02/22/20 14:48 ONS Ethanol AdvReac Intermediate HALLUCINATI Uncoded 02/22/20 14:48 ONS Home Medications Home Medications Medication Instructions Recorded Confirmed Type gabapentin 100 mg PO BID 12/23/18 03/18/20 History levothyroxine 100 mcg PO QAM 12/23/18 03/18/20 History pantoprazole 40 mg PO BID 12/23/18 03/18/20 History zolpidem 10 mg PO HS 12/23/18 03/18/20 History PreserVision AREDS-2 1 tab PO BID 01/30/19 03/18/20 History polysaccharide iron complex 150 mg PO QAM 01/30/19 03/18/20 History [Poly-Iron] Creon 3 cap PO WM 09/30/19 03/18/20 History Bifidobacterium infantis [Align] 4 mg PO QAM 02/22/20 03/18/20 History acetaminophen-codeine 1 tab PO Q4H PRN #15 tab 02/22/20 03/18/20 Rx [Tylenol-Codeine #3] cholecalciferol (vitamin D3) 25 mcg PO QAM 02/22/20 03/18/20 History [Vitamin D3] cyanocobalamin (vitamin B-12) 2,500 mcg SUBLINGUAL QAM 02/22/20 03/18/20 History [Vitamin B-12] hydrocortisone 1 applic TOPICAL BID 02/22/20 03/18/20 History ketorolac 1 drp OPHTHALMIC (EYE) BID 02/22/20 03/18/20 History lisinopril 20 mg PO QAM 02/22/20 03/18/20 History prednisolone acetate 1 drp OPHTHALMIC (EYE) BID 02/22/20 03/18/20 History venlafaxine 100 mg PO BID 02/22/20 03/18/20 History Patient History Medical History (Updated 03/19/20 @ 23:07 by Lesa Busby MD) Anemia Anxiety Appendiceal carcinoid tumor S/P CHEMO (2011); STAGE IV PER PATIENT Arthritis Breast cancer Chemotherapy adverse reaction Chronic kidney disease PER RECORDS Depression Fibromyalgia Flank pain GERD (gastroesophageal reflux disease) OCCASIONAL History of blood transfusion 5+ YEARS AGO FELT RELATED TO CANCER History of DVT (deep vein thrombosis) 2012 History of pulmonary embolism 2012 HTN (hypertension) Hx of migraines Hypothyroidism Insomnia Kidney stone Macular degeneration Metastatic cancer Osteoarthritis Pancreatic cancer Pancreatic insufficiency Peripheral neuropathy Postoperative abdominal pain SOB (shortness of breath) UTI (urinary tract infection) Surgical History H/O total hysterectomy History of appendectomy History of cataract surgery RIGHT/LEFT History of colonoscopy History of cystoscopy History of esophagogastroduodenoscopy (EGD) History of tooth extraction History of vascular access device INSERTION/SUBSEQUENT REMOVAL Pancreatic tumor S/P RESECTION Surgical history of tubal ligation Family History Mother Family history of diabetes mellitus Social History Smoking Status: Never smoker Second Hand Exposure: No; Hx Alcohol Use: No Hx Substance Use: No Preferred Language: [place] Communication Ability: Effective Press Cleaner Required: No Beliefs That Will Affect Care: Cheondoism Cheondoism Beliefs: Synagogue marital status: Current Living Situation: Spouse Other Information That Helps Us Care for You: No Feels Safe at Home: Yes Safety Concerns: Feels Safe At This Time Physical Exam Physical Exam: On exam she is in the chair at the bedside. She has full sensation to light touch and cold bilaterally. No gross tension signs. 4+/5 bilateral plantar flexion dorsiflexion quadriceps. I did not have her stand but she had recently completed physical therapy and had marked difficulty standing and walking. Results & Data ([facility]) Vital Signs (Past 12 Hours) Vital Signs Temp Pulse Resp BP Pulse Ox 03/20/20 08:30 36.8 C 59 L 16 132/61 94
--- NOTE | 2020-03-20 19:06 | Hospitalist Progress Note ---
Date of Service March 20, 2020 Assessment & Plan (1) Falls: Gris Avila is a 74 year old woman with PMH significant for Stage IV appendiceal carcinoid cancer who has had progressive weakness and increasing falls who also presents with worsening confusion in the last week. Weakness and falls/Acute encephalopathy-likely secondary to h/o lumbar spinal stenosis and radiculopathy causing pain and weakness and then was taking new prescription for oxycodone which caused confusion Progressive, patient not doing well at home, even using walker is elderly and having difficulty caring for her No longer confused, encephalopathy resolved after stopping oxycodone and treating UTI -also with pre renal KELLY and a low albumin, UTI contributing-all now resolved -Continue to treat UTI, KELLY now resolved with IVFs -MRI L-spine reviewed and with severe stenosis L4-5, L5 fracture -PT/OT consults appreciated-recommend rehab -STOPPED all opioids L5 vertebral fracture/Lumbar spinal stenosis with LLE radiculopathy-continues to have significant pain down the left lower extremity along with numbness and some mild weakness Worked with PT/OT today and was only able to walk 25 feet with a walker- recommends rehab -Add lidocaine patch to the lower back -increase gabapentin again to 300mg po bid and continue Tylenol 1000 mg p.o. scheduled every 8 hours for pain control and effort to avoid opioids -consult Ortho spine appreciated-offered kyphoplasty and possible laminectomy with decompression-she is thinking this over at this time UTI-noted to have abnormal UA as an outpatient at the [facility] [address] medicine clinic. Urine culture is now back today growing E. coli that is pansensitive -Received 2 days of IV ceftriaxone and now will convert to Keflex 500 mg p.o. twice daily x5 more days -No further urinary retention KELLY-resolved, creatinine down to 1.0 from 1.5 Likely pre renal, secondary to poor p.o. intake Also with history of urinary retention which may have been contributing-we will bladder scan and straight cath for PVR greater than 350 mL's Hypothyroidism/thyroid nodule-seen on imaging of the CT cervical spine Slow growth of thyroid nodule from previous scan 12mm to 15 mm TSH normal-does not appear to be related to her current presentation but may warrant outpatient workup -Continue levothyroxine Pulmonary imaging findings New airspace opacity in lung apex on left, possible pleural effusion on left, Obtained chest CT to better evaluate concern for possible metastasis-with some motion artifact but nothing noted in that area -Also noted to have left jugular bulb dehiscence on imaging-I discussed with the on-call radiologist today who confirmed this is unchanged from 2012 and therefore is not clinically significant Pancreatic insufficiency-secondary to partial resection of pancreas -Continue Creon Metastatic appendiceal carcinoid-with history of numerous surgeries for debulking and resection of tumors performed by surgeon in [place] -Follow-up as an outpatient No acute issues Anxiety-continue Effexor, added melatonin for sleep. Gabapentin may also help with this GERD-stable continue PPI DVT PPx: Lovenox SQ DIspo: Continued stay, appreciate PT/OT evaluations and recommendations for rehab-referrals placed to [facility] by case management today Hopeful for discharge there tomorrow DNR/DNI (2) Complicated UTI (urinary tract infection): (3) Contusion of knee, right: (4) Weakness: (5) Lumbar back pain: (6) Hypothyroidism: (7) History of DVT (deep vein thrombosis): (8) Depression: (9) Anxiety: (10) Appendiceal carcinoid tumor: (11) Pancreatic insufficiency: (12) Anemia: (13) GERD (gastroesophageal reflux disease): (14) Spinal stenosis, lumbar region with neurogenic claudication: (15) Fracture, lumbar vertebra, compression: (16) Peripheral neuropathy: (17) DVT prophylaxis: Admission and Anticipated Discharge Date Admission Date: March 18, 2020 Subjective Patient reports continued pain from left buttocks down the left lower extremity and today has numbness going down the left leg. She could not get any sleep last night due to pain and does not think the increased dose of gabapentin made any difference so far. She reports having multiple episodes of urinary incontinence through the night which was distressing. She is very anxious today as she was offered surgery for her back by orthopedic surgery and she is anxious about having another surgery thinks that she will not do it at this time. Review of Systems Review of Systems: All systems reviewed & are unremarkable except as noted in HPI & below Denies chest pain or shortness of breath, no nausea or vomiting, no abdominal pain. Physical Exam Constitutional: WD/WN, vitals as above Eyes: + anicteric sclerae Neck: trachea midline, no thyromegaly Respiratory: normal respiratory effort, lungs clear to auscultation Cardiovascular: RRR, no murmur, no edema Chest (Breasts): Chest: normal inspection of chest Gastrointestinal (Abdomen): normal bowel sounds, soft, nontender, no hepatosplenomegaly Musculoskeletal: Extremities: extremities normal to inspection; no cyanosis and no clubbing Skin: no rashes, warm and dry Neurologic: moves all extremities and awake; no focal motor deficits (5/5 strength throughout lower extremities bilaterally) Psychiatric: Orientation: alert and oriented x 3 Affect: + anxious affect Mood: + anxious mood Lymphatic: no lymphedema Results & Data Results & Data ([facility]) Vital Signs (Past 12 Hours) Vital Signs Temp Pulse Pulse Resp BP Pulse Ox 03/20/20 15:26 36.5 C 68 18 109/75 96 03/20/20 08:30 36.8 C 59 L 16 132/61 94 Laboratory Results 03/20/20 03/20/20 Range/Units 06:48 06:48 WBC 6.62 (4.8-10.8) K/uL RBC 3.84 L (4.2-5.4) M/uL Hgb 10.1 L (12.0-16.0) g/dL Hct 32.6 L (37-47) % MCV 84.9 (80-100) fL MCH 26.3 (25-34) pg MCHC 31.0 L (32-36) g/dL RDW Std Deviation 50.7 H (36.4-46.3) fL RDW Coeff of Gina 16.3 H (11.5-14.5) % Plt Count 451 H (130-400) K/uL MPV 10.0 (7.4-10.4) fL Immature Gran % (Auto) 0.2 % Neut % (Auto) 55.4 % Lymph % (Auto) 25.8 % [place] % (Auto) 15.1 % Eos % (Auto) 3.0 % Baso % (Auto) 0.5 % Neut # (Auto) 3.67 (1.4-6.5) K/uL Lymph # (Auto) 1.71 (1.2-3.4) K/uL [place] # (Auto) 1.00 H (0.11-0.59) K/uL Eos # (Auto) 0.20 (0-0.5) K/uL Baso # (Auto) 0.03 (0-0.2) K/uL Immature Gran # (Auto) 0.01 (0.00-0.02) K/uL Sodium 142 (136-145) mmol/L Potassium 3.9 (3.5-5.1) mmol/L Chloride 111 H (98-107) mmol/L Carbon Dioxide 28 (21-32) mmol/L Anion Gap 3.0 (3-11) BUN 21 H (7-18) mg/dl Creatinine 1.06 (0.6-1.2) mg/dl Est Cr Clr Drug Dosing 44.3 ml/min Est GFR ( Amer) 59.1 Est GFR (Non-Af Amer) 51.0 BUN/Creatinine Ratio 20.1 H (10-20) Glucose 103 H (70-99) mg/dl Calcium 8.5 (8.5-10.1) mg/dl Total Bilirubin 0.2 (0.2-1) mg/dl Direct Bilirubin < 0.1 (0-0.2) mg/dl AST 9 L (15-37) U/L ALT 11 L (12-78) U/L Alkaline Phosphatase 156 H (45-117) U/L Total Protein 6.1 L (6.4-8.2) gm/dl Albumin 2.0 L (3.4-5.0) gm/dl PG Care Time/CCT Total # of Minutes Spent Total Time Spent with Patient: Total time spent is greater than 50% in coordination of care (as documented) at patient's floor/unit and/or counseling patient: Coding Level of Care Code 82274 Subseq Hosp Care Lvl 3 Diagnoses Falls W19.XXXA Encounter type: initial encounter Complicated UTI (urinary tract infection) N39.0 Contusion of knee, right S80.01XA Encounter type: initial encounter Weakness R53.1 Lumbar back pain M54.5 Hypothyroidism E03.9 History of DVT (deep vein thrombosis) Z86.718 Depression F32.9 Anxiety F41.9 Appendiceal carcinoid tumor D3A.020 Pancreatic insufficiency K86.89 Anemia D64.9 GERD (gastroesophageal reflux disease) K21.9 Esophagitis presence: esophagitis presence not specified Spinal stenosis, lumbar region with neurogenic claudication M48.062 Fracture, lumbar vertebra, compression S32.000A Peripheral neuropathy G62.9 DVT prophylaxis Z29.9 (1) Falls Encounter type: initial encounter Qualified Code(s): W19.XXXA - Unspecified fall, initial encounter (2) Contusion of knee, right Encounter type: initial encounter Qualified Code(s): S80.01XA - Contusion of right knee, initial encounter (3) GERD (gastroesophageal reflux disease) Esophagitis presence: esophagitis presence not specified Qualified Code(s): K21.9 - Gastro-esophageal reflux disease without esophagitis
[2020-03-20] MEDS: LIDOCAINE 5% 1 PATCH TD SCH (19:59)
[2020-03-20] MEDS: cephALEXin 500 MG CAP PO SCH (21:19)
[2020-03-20] MEDS: GABAPENTIN 300 MG CAP PO SCH (21:19)
--- NOTE | 2020-03-20 23:26 | Electrocardiogram Report ---
Test Reason : Blood Pressure : / mmHG Vent. Rate : 073 BPM Atrial Rate : 073 BPM P-R Int : 138 ms QRS Dur : 088 ms QT Int : 404 ms P-R-T Axes : 022 -48 017 degrees QTc Int : 445 ms Normal sinus rhythm Left anterior fascicular block Poor R wave progression, consider anterior MA vs. lead placement vs. LVH Abnormal ECG When compared with ECG of 30-SEP-2019 10:24, No significant change was found Confirmed by Ken Broussard ([id number]) on 03/20/2020 11:26:40 PM Referred By: Ghassan Alva Confirmed By:Ken Broussard
[2020-03-21] MEDS: LEVOTHYROXINE SODIUM 100 MCG TABLET PO SCH (05:29)
[2020-03-21] MEDS: ACETAMINOPHEN 500 MG TAB PO SCH ×3 (05:29→21:24)
[2020-03-21] MEDS: CYANOCOBALAMIN (VITAMIN B-12) 2,500 MCG TAB.SUBL SL SCH (08:45)
[2020-03-21] MEDS: CEROVITE ADV FORMULA TAB PO SCH (08:45)
[2020-03-21] MEDS: CHOLECALCIFEROL 1,000 UNITS 25 MCG TAB PO SCH (08:45)
[2020-03-21] MEDS: PANTOprazole 40 MG TAB PO SCH ×2 (08:46→21:25)
[2020-03-21] MEDS: cephALEXin 500 MG CAP PO SCH ×2 (08:46→21:24)
[2020-03-21] MEDS: GABAPENTIN 300 MG CAP PO SCH ×2 (08:46→21:24)
[2020-03-21] MEDS: PANCREAZE (LIPASE 10,500U) CAP PO SCH ×3 (08:46→18:02)
[2020-03-21] MEDS: LACTOBACILLUS ACIDOPHILUS (FLORANEX) TAB PO SCH (08:47)
[2020-03-21] MEDS: IRON POLYSACCHARIDE COMPLEX 150 MG CAPSULE PO SCH (08:47)
[2020-03-21] MEDS: ENOXAPARIN INJ 40 MG/0.4 ML SYR SQ SCH (08:47)
[2020-03-21] MEDS: VENLAFAXINE HCL 50 MG TAB PO SCH ×2 (08:47→21:25)
[2020-03-21] MEDS: KETOROLAC 0.5% OP SOLN 5 ML BTL OP SCH ×2 (08:48→21:26)
[2020-03-21] MEDS: prednisoLONE acetate 1% OP SUSP 5 ML BTL OP SCH ×2 (08:48→21:26)
--- NOTE | 2020-03-21 17:25 | Hospitalist Progress Note ---
Date of Service March 21, 2020 Assessment & Plan (1) Falls: Gris Avila is a 74 year old woman with PMH significant for Stage IV appendiceal carcinoid cancer who has had progressive weakness and increasing falls who also presents with worsening confusion in the last week. Weakness and falls/Acute encephalopathy-likely secondary to h/o lumbar spinal stenosis and radiculopathy causing pain and weakness and then was taking new prescription for oxycodone which caused confusion Progressive, patient not doing well at home, even using walker is elderly and having difficulty caring for her No longer confused, encephalopathy resolved after stopping oxycodone and treating UTI -also presented with pre renal KELLY and a low albumin, UTI contributing-all now resolved -Continue to treat UTI, KELLY now resolved with IVFs -MRI L-spine reviewed and with severe stenosis L4-5, L5 fracture -PT/OT consults appreciated-recommend rehab -STOPPED all opioids L5 vertebral fracture/Lumbar spinal stenosis with LLE radiculopathy-continues to have significant pain down the left lower extremity along with numbness and some mild weakness Worked with PT/OT -recommends rehab -Added lidocaine patch to the lower back -Had some excessive sedation this morning after increasing gabapentin last night but also took melatonin so unclear which one made her drowsy. She does well with a daytime dose of gabapentin -We will decrease the gabapentin back down to 200 mg po bid and add a 100 mg dose at 1400 -continue Tylenol 1000 mg p.o. scheduled every 8 hours for pain control and and effort to avoid opioids -consult Ortho spine appreciated-offered kyphoplasty and possible laminectomy with decompression-she is thinking this over at this time but wants to try conservative measures first UTI-noted to have abnormal UA as an outpatient at the [facility] medicine clinic. Urine culture is now back today growing E. coli that is pansensitive -Received 2 days of IV ceftriaxone and have since converted to Keflex 500 mg p.o. twice daily x4 more days -No further urinary retention KELLY-resolved, creatinine down to 1.0 from 1.5 Likely pre renal, secondary to poor p.o. intake Also with history of urinary retention which may have been contributing-we will bladder scan and straight cath for PVR greater than 350 mL's Hypothyroidism/thyroid nodule-seen on imaging of the CT cervical spine Slow growth of thyroid nodule from previous scan 12mm to 15 mm TSH normal-does not appear to be related to her current presentation but may warrant outpatient workup -Continue levothyroxine Pulmonary imaging findings New airspace opacity in lung apex on left, possible pleural effusion on left, Obtained chest CT to better evaluate concern for possible metastasis-with some motion artifact but nothing noted in that area -Also noted to have left jugular bulb dehiscence on imaging-I discussed with the on-call radiologist who confirmed this is unchanged from 2012 and therefore is not clinically significant Pancreatic insufficiency-secondary to partial resection of pancreas -Continue Creon Metastatic appendiceal carcinoid-with history of numerous surgeries for debulking and resection of tumors performed by surgeon in [place] -Follow-up as an outpatient No acute issues Anxiety-continue Effexor GERD-stable continue PPI DVT PPx: Lovenox SQ DIspo: Continued stay for pain control while awaiting insurance authorization for rehab placement, appreciate PT/OT evaluations and recommendations for rehab-referrals placed to [facility] by case management, Hopeful for discharge there tomorrow DNR/DNI (2) Complicated UTI (urinary tract infection): (3) Contusion of knee, right: (4) Weakness: (5) Lumbar back pain: (6) Hypothyroidism: (7) History of DVT (deep vein thrombosis): (8) Depression: (9) Anxiety: (10) Appendiceal carcinoid tumor: (11) Pancreatic insufficiency: (12) Anemia: (13) GERD (gastroesophageal reflux disease): (14) Spinal stenosis, lumbar region with neurogenic claudication: (15) Fracture, lumbar vertebra, compression: (16) Peripheral neuropathy: (17) DVT prophylaxis: Admission and Anticipated Discharge Date Admission Date: March 18, 2020 Subjective Patient reports feeling very drowsy this morning she can barely stay awake but eventually woke up. We did go up on her gabapentin 300 mg last night, however she also received 6 mg of melatonin which may have contributed. She took the 300 mg of gabapentin this morning and was not drowsy throughout the day. She still reporting pain from the left buttocks down through the back of the left thigh and lower extremity now only with trying to walk but the pain goes away with sitting or lying down. Thinks the lidocaine patch may be helping a bit in the lower back. Denies nausea or vomiting, no abdominal pain, no diarrhea or constipation. Denies chest pain or shortness of breath Review of Systems Review of Systems: All systems reviewed & are unremarkable except as noted in HPI & below Physical Exam Constitutional: WD/WN, vitals as above Eyes: + anicteric sclerae Neck: trachea midline, no thyromegaly Respiratory: normal respiratory effort, lungs clear to auscultation Cardiovascular: RRR, no murmur, no edema Chest (Breasts): Chest: normal inspection of chest Gastrointestinal (Abdomen): normal bowel sounds, soft, nontender, no hepatosplenomegaly Musculoskeletal: Extremities: extremities normal to inspection; no cyanosis and no clubbing Skin: no rashes, warm and dry Neurologic: moves all extremities and awake Psychiatric: A+Ox3, euthymic affect Lymphatic: no lymphedema Results & Data Results & Data ([facility]) Vital Signs (Past 12 Hours) Vital Signs Temp Pulse Resp BP Pulse Ox 03/21/20 07:50 36.5 C 60 16 127/81 92 PG Care Time/CCT Total # of Minutes Spent Total Time Spent with Patient: Total time spent is greater than 50% in coordination of care (as documented) at patient's floor/unit and/or counseling patient: Coding Level of Care Code 35378 Subseq Hosp Care Lvl 2 Diagnoses Falls W19.XXXA Encounter type: initial encounter Complicated UTI (urinary tract infection) N39.0 Contusion of knee, right S80.01XA Encounter type: initial encounter Weakness R53.1 Lumbar back pain M54.5 Hypothyroidism E03.9 History of DVT (deep vein thrombosis) Z86.718 Depression F32.9 Anxiety F41.9 Appendiceal carcinoid tumor D3A.020 Pancreatic insufficiency K86.89 Anemia D64.9 GERD (gastroesophageal reflux disease) K21.9 Esophagitis presence: esophagitis presence not specified Spinal stenosis, lumbar region with neurogenic claudication M48.062 Fracture, lumbar vertebra, compression S32.000A Peripheral neuropathy G62.9 DVT prophylaxis Z29.9 (1) GERD (gastroesophageal reflux disease) Esophagitis presence: esophagitis presence not specified Qualified Code(s): K21.9 - Gastro-esophageal reflux disease without esophagitis (2) Falls Encounter type: initial encounter Qualified Code(s): W19.XXXA - Unspecified fall, initial encounter (3) Contusion of knee, right Encounter type: initial encounter Qualified Code(s): S80.01XA - Contusion of right knee, initial encounter
[2020-03-21] MEDS: LIDOCAINE 5% 1 PATCH TD SCH (21:37)
[2020-03-22] MEDS: ACETAMINOPHEN 500 MG TAB PO SCH ×3 (05:06→21:44)
[2020-03-22] MEDS: LEVOTHYROXINE SODIUM 100 MCG TABLET PO SCH (05:06)
[2020-03-22] MEDS ORDERED: GABAPENTIN 100 MG CAP PO SCH (09:00)
[2020-03-22] MEDS: PANCREAZE (LIPASE 10,500U) CAP PO SCH ×3 (09:21→17:42)
[2020-03-22] MEDS: KETOROLAC 0.5% OP SOLN 5 ML BTL OP SCH ×2 (09:22→20:41)
[2020-03-22] MEDS: VENLAFAXINE HCL 50 MG TAB PO SCH ×2 (09:22→20:42)
[2020-03-22] MEDS: LACTOBACILLUS ACIDOPHILUS (FLORANEX) TAB PO SCH (09:23)
[2020-03-22] MEDS: cephALEXin 500 MG CAP PO SCH ×2 (09:23→20:43)
[2020-03-22] MEDS: CEROVITE ADV FORMULA TAB PO SCH (09:24)
[2020-03-22] MEDS: IRON POLYSACCHARIDE COMPLEX 150 MG CAPSULE PO SCH (09:25)
[2020-03-22] MEDS: CYANOCOBALAMIN (VITAMIN B-12) 2,500 MCG TAB.SUBL SL SCH (09:26)
[2020-03-22] MEDS: CHOLECALCIFEROL 1,000 UNITS 25 MCG TAB PO SCH (09:26)
[2020-03-22] MEDS: PANTOprazole 40 MG TAB PO SCH ×2 (09:26→20:43)
[2020-03-22] MEDS: ENOXAPARIN INJ 40 MG/0.4 ML SYR SQ SCH (09:27)
[2020-03-22] MEDS: prednisoLONE acetate 1% OP SUSP 5 ML BTL OP SCH ×2 (09:28→20:46)
[2020-03-22] MEDS: LIDOCAINE 5% 1 PATCH TD SCH (09:38)
--- NOTE | 2020-03-22 13:28 | Orthopedic Progress Note ---
Date of Service March 22, 2020 Assessment & Plan (1) Fracture, lumbar vertebra, compression: (2) Spinal stenosis, lumbar region with neurogenic claudication: Admission and Anticipated Discharge Date Admission Date: March 18, 2020 Long assist with this patient and her daughter reviewing her MRI findings and clinical course. This time we could consider surgical intervention. It would require a kyphoplasty of L5 and a lumbar decompression at L3-4 L4-5 possible L5- S1. I will be seeing her throughout the weekend with plan for possible surgery Wednesday. Subjective Patient continues to have back and bilateral leg pain left worse than right with weakness. She is very interested in considering surgical intervention. Results & Data ([facility]) Vital Signs (Past 12 Hours) Vital Signs Temp Pulse Resp BP Pulse Ox 03/22/20 07:22 36.5 C 60 18 115/72 94
[2020-03-22] MEDS: GABAPENTIN 100 MG CAP PO SCH (14:33)
--- NOTE | 2020-03-22 18:34 | Hospitalist Progress Note ---
Date of Service March 22, 2020 Assessment & Plan (1) Falls: Gris Avila is a 74 year old woman with PMH significant for Stage IV appendiceal carcinoid cancer who has had progressive weakness and increasing falls who also presents with worsening confusion in the last week. Weakness and falls/Acute encephalopathy-likely secondary to h/o lumbar spinal stenosis and radiculopathy causing pain and weakness and then was taking new prescription for oxycodone which caused confusion Progressive, patient not doing well at home, even using walker is elderly and having difficulty caring for her No longer confused, encephalopathy resolved after stopping oxycodone and treating UTI -also presented with pre renal KELLY and a low albumin, UTI contributing-all now resolved -Continue to treat UTI, KELLY now resolved with IVFs -MRI L-spine reviewed and with severe stenosis L4-5, L5 fracture -PT/OT consults appreciated-recommend rehab -STOPPED all opioids L5 vertebral fracture/Lumbar spinal stenosis with LLE radiculopathy-continues to have significant pain down the left lower extremity along with numbness and some mild weakness Worked with PT/OT -recommends rehab -Added lidocaine patch to the lower back -increase gabapentin back to 300 mg po bid and added a 100 mg dose at 1400 -continue Tylenol 1000 mg p.o. scheduled every 8 hours for pain control and and effort to avoid opioids -consult Ortho spine appreciated-offered kyphoplasty and laminectomy with decompression-she has now decided to proceed with surgery likely on Wednesday UTI-noted to have abnormal UA as an outpatient at the [facility] medicine clinic. Urine culture is now back today growing E. coli that is pansensitive -Received 2 days of IV ceftriaxone and have since converted to Keflex 500 mg p.o. twice daily x 3 more days -No further urinary retention KELLY-resolved, creatinine down to 1.0 from 1.5 Likely pre renal, secondary to poor p.o. intake Also with history of urinary retention which may have been contributing-we will bladder scan and straight cath for PVR greater than 350 mL's Hypothyroidism/thyroid nodule-seen on imaging of the CT cervical spine Slow growth of thyroid nodule from previous scan 12mm to 15 mm TSH normal-does not appear to be related to her current presentation but may warrant outpatient workup -Continue levothyroxine Pulmonary imaging findings New airspace opacity in lung apex on left, possible pleural effusion on left, Obtained chest CT to better evaluate concern for possible metastasis-with some motion artifact but nothing noted in that area -Also noted to have left jugular bulb dehiscence on imaging-I discussed with the on-call radiologist who confirmed this is unchanged from 2012 and therefore is not clinically significant Pancreatic insufficiency-secondary to partial resection of pancreas -Continue Creon Metastatic appendiceal carcinoid-with history of numerous surgeries for debulking and resection of tumors performed by surgeon in [place] -Follow-up as an outpatient No acute issues Anxiety-continue Effexor GERD-stable continue PPI DVT PPx: Lovenox SQ-this will need to be held prior to back surgery on Wednesday DIspo: Continued stay for pain control, now going to have back surgery on Wednesday and then will need rehab stay after that DNR/DNI (2) Complicated UTI (urinary tract infection): (3) Contusion of knee, right: (4) Weakness: (5) Lumbar back pain: (6) Hypothyroidism: (7) History of DVT (deep vein thrombosis): (8) Depression: (9) Anxiety: (10) Appendiceal carcinoid tumor: (11) Pancreatic insufficiency: (12) Anemia: (13) GERD (gastroesophageal reflux disease): (14) Spinal stenosis, lumbar region with neurogenic claudication: (15) Fracture, lumbar vertebra, compression: (16) Peripheral neuropathy: (17) DVT prophylaxis: Admission and Anticipated Discharge Date Admission Date: March 18, 2020 Subjective Pt is having continued pain down the left lower extremity with any time she walks around. The pain goes away when she sits down. She was not groggy this morning after taking gabapentin last night but does not notice much difference in the pain severity. She is now considering having back surgery Dr. Monterroso on Wednesday. Denies chest pain or shortness of breath, no nausea. She is eating and moving her bowels. Making urine. Review of Systems Review of Systems: All systems reviewed & are unremarkable except as noted in HPI & below Physical Exam Constitutional: WD/WN, vitals as above Eyes: + anicteric sclerae Neck: trachea midline, no thyromegaly Respiratory: normal respiratory effort, lungs clear to auscultation Cardiovascular: RRR, no murmur, no edema Chest (Breasts): Chest: normal inspection of chest Gastrointestinal (Abdomen): normal bowel sounds, soft, nontender, no hepatosplenomegaly Musculoskeletal: Extremities: extremities normal to inspection; no cyanosis and no clubbing Skin: no rashes, warm and dry Neurologic: moves all extremities and awake Motor/Sensory: no sensory deficit (Sensation intact to light touch throughout bilateral lower extremities) Psychiatric: A+Ox3, euthymic affect Lymphatic: no lymphedema Results & Data Results & Data ([facility]) Vital Signs (Past 12 Hours) Vital Signs Temp Pulse Resp BP Pulse Ox 03/22/20 15:15 36.7 C 71 16 118/77 96 03/22/20 07:22 36.5 C 60 18 115/72 94 Laboratory Results 03/22/20 03/22/20 Range/Units Unknown Unknown COVID-19 [facility] SARS-CoV-2, RNA, NAAT NEGATIVE (NEGATIVE) PG Care Time/CCT Total # of Minutes Spent Total Time Spent with Patient: Total time spent is greater than 50% in coordination of care (as documented) at patient's floor/unit and/or counseling patient: Coding Level of Care Code 78202 Subseq Hosp Care Lvl 2 Diagnoses Falls W19.XXXA Encounter type: initial encounter Complicated UTI (urinary tract infection) N39.0 Contusion of knee, right S80.01XA Encounter type: initial encounter Weakness R53.1 Lumbar back pain M54.5 Hypothyroidism E03.9 History of DVT (deep vein thrombosis) Z86.718 Depression F32.9 Anxiety F41.9 Appendiceal carcinoid tumor D3A.020 Pancreatic insufficiency K86.89 Anemia D64.9 GERD (gastroesophageal reflux disease) K21.9 Esophagitis presence: esophagitis presence not specified Spinal stenosis, lumbar region with neurogenic claudication M48.062 Fracture, lumbar vertebra, compression S32.000A Peripheral neuropathy G62.9 DVT prophylaxis Z29.9 (1) GERD (gastroesophageal reflux disease) Esophagitis presence: esophagitis presence not specified Qualified Code(s): K21.9 - Gastro-esophageal reflux disease without esophagitis (2) Falls Encounter type: initial encounter Qualified Code(s): W19.XXXA - Unspecified fall, initial encounter (3) Contusion of knee, right Encounter type: initial encounter Qualified Code(s): S80.01XA - Contusion of right knee, initial encounter
[2020-03-22] MEDS: GABAPENTIN 300 MG CAP PO SCH (20:46)
[2020-03-23] MEDS: ACETAMINOPHEN 500 MG TAB PO SCH ×3 (05:41→21:29)
[2020-03-23] MEDS: LEVOTHYROXINE SODIUM 100 MCG TABLET PO SCH (05:41)
[2020-03-23 07:49] LABS: Basophils # (auto) 0.05 K/uL (0-0.2); Basophils % (auto) 0.6 %; Eosinophils # (auto) 0.29 K/uL (0-0.5); Eosinophils % (auto) 3.5 %; Hematocrit (blood only) 31.5 % (37-47); Hemoglobin 9.9 g/dL (12.0-16.0); Immature Granulocytes # (auto) 0.03 K/uL (0.00-0.02); Immature Granulocytes % (auto) 0.4 %; Lymphocytes # (auto) 1.77 K/uL (1.2-3.4); Lymphocytes % (auto) 21.4 %; Mean Corpuscular Hemoglobin 26.9 pg (25-34); Mean Corpuscular Hgb Conc 31.4 g/dL (32-36); Mean Corpuscular Volume 85.6 fL (80-100); Monocytes # (auto) 0.84 K/uL (0.11-0.59); Monocytes % (auto) 10.2 %; Neutrophils # (auto) 5.28 K/uL (1.4-6.5); Neutrophils % (auto) 63.9 %; Platelet Count 542 K/uL (130-400); RDW Coefficient of Variation 16.5 % (11.5-14.5); RDW Standard Deviation 51.9 fL (36.4-46.3); Red Blood Count 3.68 M/uL (4.2-5.4); White Blood Count 8.26 K/uL (4.8-10.8)
[2020-03-23 08:13] LABS: INR 1.1 (0.9-1.1); Partial Thromboplastin Time 27.5 Seconds (21.0-31.0); Prothrombin Time 11.4 Seconds (9.0-12.0)
[2020-03-23 08:21] LABS: BUN Creatinine Ratio 20.7 (10-20); Creatinine Clr Calc Pharmacy 46.9 ml/min; Est GFR (African American) 63.4; Est GFR (Non-African American) 54.7; Potassium 3.8 mmol/L (3.5-5.1)
[2020-03-23 08:25] LABS: Ferritin 27.3 ng/ml (8-388)
[2020-03-23] MEDS: PANCREAZE (LIPASE 10,500U) CAP PO SCH ×3 (09:00→17:57)
[2020-03-23] MEDS: PANTOprazole 40 MG TAB PO SCH ×2 (09:00→21:31)
[2020-03-23] MEDS: LIDOCAINE 5% 1 PATCH TD SCH (09:00)
[2020-03-23] MEDS: KETOROLAC 0.5% OP SOLN 5 ML BTL OP SCH ×2 (09:00→21:37)
[2020-03-23] MEDS: VENLAFAXINE HCL 50 MG TAB PO SCH ×2 (09:00→21:27)
[2020-03-23] MEDS: IRON POLYSACCHARIDE COMPLEX 150 MG CAPSULE PO SCH (09:00)
[2020-03-23] MEDS: CEROVITE ADV FORMULA TAB PO SCH (09:00)
[2020-03-23] MEDS: GABAPENTIN 300 MG CAP PO SCH ×2 (09:00→21:30)
[2020-03-23] MEDS: prednisoLONE acetate 1% OP SUSP 5 ML BTL OP SCH ×2 (09:00→21:25)
[2020-03-23] MEDS: CHOLECALCIFEROL 1,000 UNITS 25 MCG TAB PO SCH (09:00)
[2020-03-23] MEDS: LACTOBACILLUS ACIDOPHILUS (FLORANEX) TAB PO SCH (09:00)
[2020-03-23] MEDS: CYANOCOBALAMIN (VITAMIN B-12) 2,500 MCG TAB.SUBL SL SCH (09:00)
[2020-03-23] MEDS: cephALEXin 500 MG CAP PO SCH ×2 (09:00→21:27)
[2020-03-23] MEDS: ENOXAPARIN INJ 40 MG/0.4 ML SYR SQ SCH (09:00)
[2020-03-23 09:42] LABS: Folate (Folic Acid) 14.67 ng/ml (>5.38); Vitamin B12 > 2000 pg/ml (211-911)
--- NOTE | 2020-03-23 10:02 | Orthopedic Progress Note ---
Date of Service March 23, 2020 Assessment & Plan (1) Spinal stenosis, lumbar region with neurogenic claudication: Admission and Anticipated Discharge Date Admission Date: March 18, 2020 Patient with like to pursue surgery. Will be made n.p.o. after midnight Wednesday with plan for or Wednesday. Risk benefits pros cons and alternatives were outlined in detail. Subjective Patient continues to complain of back and bilateral leg pain left greater than right. Physical Exam Physical Exam: Patient is in bed has reasonable strength testing lower extremities. Results & Data ([facility]) Vital Signs (Past 12 Hours) Vital Signs Temp Pulse Pulse Resp BP BP Pulse Ox 03/23/20 07:12 36.7 C 65 16 133/81 91 03/22/20 23:49 37.7 C H 03/22/20 23:21 63 16 142/81 H 93
[2020-03-23] MEDS: GABAPENTIN 100 MG CAP PO SCH (12:54)
--- NOTE | 2020-03-23 20:07 | Hospitalist Progress Note ---
Date of Service March 23, 2020 Assessment & Plan (1) Falls: Gris Avila is a 74 year old woman with PMH significant for Stage IV appendiceal carcinoid cancer who has had progressive weakness and increasing falls who also presents with worsening confusion in the last week. Weakness and falls/Acute encephalopathy-likely secondary to h/o lumbar spinal stenosis and radiculopathy causing pain and weakness and then was taking new prescription for oxycodone which caused confusion Progressive, patient not doing well at home, even using walker is elderly and having difficulty caring for her No longer confused, encephalopathy resolved after stopping oxycodone and treating UTI -also presented with pre renal KELLY and a low albumin, UTI contributing-all now resolved -Continue to treat UTI, KELLY now resolved with IVFs -MRI L-spine reviewed and with severe stenosis L4-5, L5 fracture -PT/OT consults appreciated-recommend rehab -STOPPED all opioids L5 vertebral fracture/Lumbar spinal stenosis with LLE radiculopathy-continues to have significant pain down the left and now some on the right lower extremity along with numbness and some mild weakness Worked with PT/OT -recommends rehab -Added lidocaine patch to the lower back -increased gabapentin to 300 mg po bid and added a 100 mg dose at 1400 -continue Tylenol 1000 mg p.o. scheduled every 8 hours for pain control and and effort to avoid opioids -add on Aleve 250mg po bid -add on tramadol 50mg po q4h prn -consult Ortho spine appreciated-offered kyphoplasty and laminectomy with decompression-she has now decided to proceed with surgery on Wednesday UTI-noted to have abnormal UA as an outpatient at the [facility] medicine clinic. Urine culture is now back today growing E. coli that is pansensitive -Received 2 days of IV ceftriaxone and have since converted to Keflex 500 mg p.o. twice daily x 2 more days-last dose 03/25 -No further urinary retention KELLY-resolved, creatinine down to 1.0 from 1.5 Likely pre renal, secondary to poor p.o. intake Also with history of urinary retention which may have been contributing-continue to bladder scan and straight cath for PVR greater than 350 mL's -is actually not making much urine now-encouraged increased po fluids Hypothyroidism/thyroid nodule-seen on imaging of the CT cervical spine Slow growth of thyroid nodule from previous scan 12mm to 15 mm TSH normal-does not appear to be related to her current presentation but may warrant outpatient workup -Continue levothyroxine Pulmonary imaging findings New airspace opacity in lung apex on left, possible pleural effusion on left, Obtained chest CT to better evaluate concern for possible metastasis-with some motion artifact but nothing noted in that area -Also noted to have left jugular bulb dehiscence on imaging-I discussed with the on-call radiologist who confirmed this is unchanged from 2012 and therefore is not clinically significant Pancreatic insufficiency-secondary to partial resection of pancreas -Continue Creon Metastatic appendiceal carcinoid-with history of numerous surgeries for debulking and resection of tumors performed by surgeon in [place] -Follow-up as an outpatient No acute issues Anxiety-continue Effexor GERD-stable, continue PPI DVT PPx: Lovenox SQ-this will need to be held prior to back surgery on Wednesday DIspo: Continued stay for pain control, now going to have back surgery on Wednesday and then will need rehab stay after that DNR/DNI (2) Complicated UTI (urinary tract infection): (3) Contusion of knee, right: (4) Weakness: (5) Lumbar back pain: (6) Hypothyroidism: (7) History of DVT (deep vein thrombosis): (8) Depression: (9) Anxiety: (10) Appendiceal carcinoid tumor: (11) Pancreatic insufficiency: (12) Anemia: (13) GERD (gastroesophageal reflux disease): (14) Spinal stenosis, lumbar region with neurogenic claudication: (15) Fracture, lumbar vertebra, compression: (16) Peripheral neuropathy: (17) DVT prophylaxis: Admission and Anticipated Discharge Date Admission Date: March 18, 2020 Subjective Pt having fairly severe pain down left lower extremity and some down the right. Also having great difficulty getting any sleep. SHe states that ALeve helps a lot with her pain at home. She has not had side effects with tramadol, but reports in the past it didn't help much with her pain. Denies CP or SOB Review of Systems Review of Systems: All systems reviewed & are unremarkable except as noted in HPI & below Physical Exam Constitutional: WD/WN, vitals as above Eyes: + anicteric sclerae Neck: trachea midline, no thyromegaly Respiratory: normal respiratory effort, lungs clear to auscultation Cardiovascular: RRR, no murmur, no edema Chest (Breasts): Chest: normal inspection of chest Gastrointestinal (Abdomen): normal bowel sounds, soft, nontender, no hep atosplenomegaly Musculoskeletal: Extremities: extremities normal to inspection; no cyanosis and no clubbing Skin: no rashes, warm and dry Neurologic: moves all extremities and awake Psychiatric: Orientation: alert and oriented x 3 Mood: + anxious mood Lymphatic: no lymphedema Results & Data Results & Data ([facility]) Vital Signs (Past 12 Hours) Vital Signs Temp Pulse Resp BP Pulse Ox 03/23/20 15:23 36.7 C 59 L 18 122/80 95 Laboratory Results 03/23/20 03/23/20 03/23/20 Range/Units 07:13 07:13 07:13 WBC 8.26 (4.8-10.8) K/uL RBC 3.68 L (4.2-5.4) M/uL Hgb 9.9 L (12.0-16.0) g/dL Hct 31.5 L (37-47) % MCV 85.6 (80-100) fL MCH 26.9 (25-34) pg MCHC 31.4 L (32-36) g/dL RDW Std Deviation 51.9 H (36.4-46.3) fL RDW Coeff of Gina 16.5 H (11.5-14.5) % Plt Count 542 H (130-400) K/uL MPV 10.0 (7.4-10.4) fL Immature Gran % (Auto) 0.4 % Neut % (Auto) 63.9 % Lymph % (Auto) 21.4 % [place] % (Auto) 10.2 % Eos % (Auto) 3.5 % Baso % (Auto) 0.6 % Neut # (Auto) 5.28 (1.4-6.5) K/uL Lymph # (Auto) 1.77 (1.2-3.4) K/uL [place] # (Auto) 0.84 H (0.11-0.59) K/uL Eos # (Auto) 0.29 (0-0.5) K/uL Baso # (Auto) 0.05 (0-0.2) K/uL Immature Gran # (Auto) 0.03 H (0.00-0.02) K/uL PT 11.4 (9.0-12.0) Seconds INR 1.1 (0.9-1.1) APTT 27.5 (21.0-31.0) Seconds PTT Ratio 1.0 Sodium (136-145) mmol/L Potassium (3.5-5.1) mmol/L Chloride (98-107) mmol/L Carbon Dioxide (21-32) mmol/L Anion Gap (3-11) BUN (7-18) mg/dl Creatinine (0.6-1.2) mg/dl Est Cr Clr Drug Dosing ml/min Est GFR ( Amer) Est GFR (Non-Af Amer) BUN/Creatinine Ratio (10-20) Glucose (70-99) mg/dl Calcium (8.5-10.1) mg/dl Iron (35-150) mcg/dl TIBC (250-450) mcg/dl Transferrin (200-360) mg/dl Transferrin % Sat (15-50) % Ferritin (8-388) ng/ml Vitamin B12 > 2000 H (211-911) pg/ml Folate 14.67 (>5.38) ng/ml 03/23/20 Range/Units 07:13 WBC (4.8-10.8) K/uL RBC (4.2-5.4) M/uL Hgb (12.0-16.0) g/dL Hct (37-47) % MCV (80-100) fL MCH (25-34) pg MCHC (32-36) g/dL RDW Std Deviation (36.4-46.3) fL RDW Coeff of Gina (11.5-14.5) % Plt Count (130-400) K/uL MPV (7.4-10.4) fL Immature Gran % (Auto) % Neut % (Auto) % Lymph % (Auto) % [place] % (Auto) % Eos % (Auto) % Baso % (Auto) % Neut # (Auto) (1.4-6.5) K/uL Lymph # (Auto) (1.2-3.4) K/uL [place] # (Auto) (0.11-0.59) K/uL Eos # (Auto) (0-0.5) K/uL Baso # (Auto) (0-0.2) K/uL Immature Gran # (Auto) (0.00-0.02) K/uL PT (9.0-12.0) Seconds INR (0.9-1.1) APTT (21.0-31.0) Seconds PTT Ratio Sodium 141 (136-145) mmol/L Potassium 3.8 (3.5-5.1) mmol/L Chloride 109 H (98-107) mmol/L Carbon Dioxide 27 (21-32) mmol/L Anion Gap 5.0 (3-11) BUN 21 H (7-18) mg/dl Creatinine 1.00 (0.6-1.2) mg/dl Est Cr Clr Drug Dosing 46.9 ml/min Est GFR ( Amer) 63.4 Est GFR (Non-Af Amer) 54.7 BUN/Creatinine Ratio 20.7 H (10-20) Glucose 125 H (70-99) mg/dl Calcium 9.0 (8.5-10.1) mg/dl Iron 26 L (35-150) mcg/dl TIBC 273 (250-450) mcg/dl Transferrin 203 (200-360) mg/dl Transferrin % Sat 9 L (15-50) % Ferritin 27.3 (8-388) ng/ml Vitamin B12 (211-911) pg/ml Folate (>5.38) ng/ml PG Care Time/CCT Total # of Minutes Spent Total Time Spent with Patient: Total time spent is greater than 50% in coordination of care (as documented) at patient's floor/unit and/or counseling patient: Coding Level of Care Code 33870 Subseq Hosp Care Lvl 2 Diagnoses Falls W19.XXXA Encounter type: initial encounter Complicated UTI (urinary tract infection) N39.0 Contusion of knee, right S80.01XA Encounter type: initial encounter Weakness R53.1 Lumbar back pain M54.5 Hypothyroidism E03.9 History of DVT (deep vein thrombosis) Z86.718 Depression F32.9 Anxiety F41.9 Appendiceal carcinoid tumor D3A.020 Pancreatic insufficiency K86.89 Anemia D64.9 GERD (gastroesophageal reflux disease) K21.9 Esophagitis presence: esophagitis presence not specified Spinal stenosis, lumbar region with neurogenic claudication M48.062 Fracture, lumbar vertebra, compression S32.000A Peripheral neuropathy G62.9 DVT prophylaxis Z29.9 (1) GERD (gastroesophageal reflux disease) Esophagitis presence: esophagitis presence not specified Qualified Code(s): K21.9 - Gastro-esophageal reflux disease without esophagitis (2) Falls Encounter type: initial encounter Qualified Code(s): W19.XXXA - Unspecified fall, initial encounter (3) Contusion of knee, right Encounter type: initial encounter Qualified Code(s): S80.01XA - Contusion of right knee, initial encounter
[2020-03-23] MEDS ORDERED: NAPROXEN 250 MG TAB PO PRN (20:23)
[2020-03-23] MEDS ORDERED: IRON SUCROSE 300 MG in SODIUM CHLORIDE 0.9% 250 ML IV SCH (21:00)
[2020-03-23] MEDS: MELATONIN 3 MG TAB PO PRN (21:39)
[2020-03-23] MEDS: TRAMADOL HCL 50 MG TABLET PO PRN (21:39)
[2020-03-24] MEDS: ACETAMINOPHEN 500 MG TAB PO SCH ×3 (06:07→21:46)
[2020-03-24] MEDS: LEVOTHYROXINE SODIUM 100 MCG TABLET PO SCH (06:07)
[2020-03-24] MEDS: PANCREAZE (LIPASE 10,500U) CAP PO SCH ×3 (09:06→17:57)
[2020-03-24] MEDS: KETOROLAC 0.5% OP SOLN 5 ML BTL OP SCH ×2 (09:06→20:49)
[2020-03-24] MEDS: CEROVITE ADV FORMULA TAB PO SCH (09:17)
[2020-03-24] MEDS: LIDOCAINE 5% 1 PATCH TD SCH (09:17)
[2020-03-24] MEDS: prednisoLONE acetate 1% OP SUSP 5 ML BTL OP SCH ×2 (09:17→20:50)
[2020-03-24] MEDS: CYANOCOBALAMIN (VITAMIN B-12) 2,500 MCG TAB.SUBL SL SCH (09:18)
[2020-03-24] MEDS: cephALEXin 500 MG CAP PO SCH ×2 (09:18→20:50)
[2020-03-24] MEDS: GABAPENTIN 300 MG CAP PO SCH ×2 (09:18→20:51)
[2020-03-24] MEDS: PANTOprazole 40 MG TAB PO SCH ×2 (09:18→20:52)
[2020-03-24] MEDS: VENLAFAXINE HCL 50 MG TAB PO SCH ×2 (09:18→20:49)
[2020-03-24] MEDS: IRON POLYSACCHARIDE COMPLEX 150 MG CAPSULE PO SCH (09:18)
[2020-03-24] MEDS: CHOLECALCIFEROL 1,000 UNITS 25 MCG TAB PO SCH (09:19)
[2020-03-24] MEDS: LACTOBACILLUS ACIDOPHILUS (FLORANEX) TAB PO SCH (09:19)
[2020-03-24] MEDS: ENOXAPARIN INJ 40 MG/0.4 ML SYR SQ SCH ×2 (09:19→09:29)
[2020-03-24] MEDS: GABAPENTIN 100 MG CAP PO SCH (13:06)
--- NOTE | 2020-03-24 17:38 | Hospitalist Progress Note ---
Date of Service March 24, 2020 Assessment & Plan (1) Falls: Gris Avila is a 74 year old woman with PMH significant for Stage IV appendiceal carcinoid cancer who has had progressive weakness and increasing falls who also presents with worsening confusion in the last week. Weakness and falls/Acute encephalopathy-likely secondary to h/o lumbar spinal stenosis and radiculopathy causing pain and weakness and then was taking new prescription for oxycodone which caused confusion Progressive, patient not doing well at home, even using walker is elderly and having difficulty caring for her No longer confused, encephalopathy resolved after stopping oxycodone and treating UTI -also presented with pre renal KELLY and a low albumin, UTI contributing-all now resolved -Continue to treat UTI, KELLY now resolved with IVFs -MRI L-spine reviewed and with severe stenosis L4-5, L5 fracture -PT/OT consults appreciated-recommend rehab -STOPPED all opioids (2) Fracture, lumbar vertebra, compression: L5 vertebral fracture/Lumbar spinal stenosis with LLE radiculopathy- continues to have significant pain down the left and now some on the right lower extremity along with numbness and some mild weakness Worked with PT/OT -recommends rehab -Added lidocaine patch to the lower back -increased gabapentin to 300 mg po bid and added a 100 mg dose at 1400 -continue Tylenol 1000 mg p.o. scheduled every 8 hours for pain control and and effort to avoid opioids -added on Aleve 250mg po bid -added on tramadol 50mg po q4h prn but she has not yet taken a dose -consult Ortho spine appreciated-offered kyphoplasty and laminectomy with decompression-she has now decided to proceed with surgery on Wednesday -NPO after midnight, hold Lovenox (3) Contusion of knee, right: secondary to fall, not causing an acute issue (4) Weakness: as above, secondary to lumbar spinal stenosis (5) Lumbar back pain: as above, secondary to L5 comp fx going for kyphoplasty (6) Hypothyroidism: Hypothyroidism/thyroid nodule-seen on imaging of the CT cervical spine Slow growth of thyroid nodule from previous scan 12mm to 15 mm TSH normal-does not appear to be related to her current presentation but may warrant outpatient workup -Continue levothyroxine (7) History of DVT (deep vein thrombosis): add SCDs now that has to STOP Lovenox for back surgery (8) Depression: continue Effexor (9) Anxiety: continue Effexor (10) Appendiceal carcinoid tumor: Metastatic appendiceal carcinoid-with history of numerous surgeries for debulking and resection of tumors performed by surgeon in [place] -Follow-up as an outpatient No acute issues (11) Pancreatic insufficiency: Pancreatic insufficiency-secondary to partial resection of pancreas -Continue Creon (12) Anemia: With Fe def anemia here, hgb 9.9, with reactive thrombocytosis to Fe-def anemia -giving Venofer 300mg IV daily x 3 doses-last dose will need to be ordered on 03/25 -follow CBC especially in light of back surgery on Wednesday (13) GERD (gastroesophageal reflux disease): GERD-stable, continue PPI (14) Spinal stenosis, lumbar region with neurogenic claudication: as above (15) Peripheral neuropathy: continue gabapentin (16) Complicated UTI (urinary tract infection): UTI-noted to have abnormal UA as an outpatient at the [facility]. Urine culture is now back today growing E. coli that is pansensitive -Received 2 days of IV ceftriaxone and have since converted to Keflex 500 mg p .o. twice daily for total of 7 days-last dose 03/25 -No further urinary retention (17) KELLY (acute kidney injury): KELLY-resolved, creatinine down to 1.0 from 1.5 Likely pre renal, secondary to poor p.o. intake Also with history of urinary retention which may have been contributing-continue to bladder scan and straight cath for PVR greater than 350 mL's -is actually not making much urine now-encouraged increased po fluids (18) Abnormal chest xray: Pulmonary imaging findings New airspace opacity in lung apex on left, possible pleural effusion on left, Obtained chest CT to better evaluate concern for possible metastasis-with some motion artifact but nothing noted in that area -Also noted to have left jugular bulb dehiscence on imaging-I discussed with the on-call radiologist who confirmed this is unchanged from 2012 and therefore is not clinically significant (19) DVT prophylaxis: DVT PPx: Lovenox SQ-now will be held prior to back surgery on Wednesday DIspo: Continued stay for pain control, now going to have back surgery on Wednesday and then will need rehab stay after that DNR/DNI Admission and Anticipated Discharge Date Admission Date: March 18, 2020 Subjective Feeling better today, got more sleep last night and pain is improved today. Still wants to have surgery tomorrow. Denies N/V, is beth po, denies CP or SOB. No trouble voiding but has some urine leakage. Is moving her bowels Review of Systems Review of Systems: All systems reviewed & are unremarkable except as noted in HPI & below Physical Exam Constitutional: WD/WN, vitals as above Eyes: + anicteric sclerae Neck: trachea midline, no thyromegaly Respiratory: normal respiratory effort, lungs clear to auscultation Cardiovascular: RRR, no murmur, no edema Chest (Breasts): Chest: normal inspection of chest Gastrointestinal (Abdomen): normal bowel sounds, soft, nontender, no hepatosplenomegaly Musculoskeletal: Extremities: extremities normal to inspection; no cyanosis and no clubbing Skin: no rashes, warm and dry Neurologic: moves all extremities and awake Psychiatric: A+Ox3, euthymic affect Lymphatic: no lymphedema Results & Data Results & Data ([facility]) Vital Signs (Past 12 Hours) Vital Signs Temp Pulse Pulse Resp BP BP Pulse Ox 03/24/20 15:06 36.6 C 58 L 16 122/79 95 03/24/20 07:40 36.5 C 59 L 16 129/68 92 Laboratory Results 03/24/20 Range/Units 06:00 Blood Type O Positive Antibody Screen NEGATIVE Crossmatch See Detail PG Care Time/CCT Total # of Minutes Spent Total Time Spent with Patient: Total time spent is greater than 50% in coordination of care (as documented) at patient's floor/unit and/or counseling patient: Coding Level of Care Code 38711 Subseq Hosp Care Lvl 2 Diagnoses Falls W19.XXXA Encounter type: initial encounter Fracture, lumbar vertebra, compression S32.000A Contusion of knee, right S80.01XA Encounter type: initial encounter Weakness R53.1 Lumbar back pain M54.5 Hypothyroidism E03.9 History of DVT (deep vein thrombosis) Z86.718 Depression F32.9 Anxiety F41.9 Appendiceal carcinoid tumor D3A.020 Pancreatic insufficiency K86.89 Anemia D64.9 GERD (gastroesophageal reflux disease) K21.9 Esophagitis presence: esophagitis presence not specified Spinal stenosis, lumbar region with neurogenic claudication M48.062 Peripheral neuropathy G62.9 Complicated UTI (urinary tract infection) N39.0 KELLY (acute kidney injury) N17.9 Abnormal chest xray R93.89 DVT prophylaxis Z29.9 (1) Falls Encounter type: initial encounter Qualified Code(s): W19.XXXA - Unspecified fall, initial encounter (2) Contusion of knee, right Encounter type: initial encounter Qualified Code(s): S80.01XA - Contusion of right knee, initial encounter (3) GERD (gastroesophageal reflux disease) Esophagitis presence: esophagitis presence not specified Qualified Code(s): K21.9 - Gastro-esophageal reflux disease without esophagitis
[2020-03-24] MEDS ORDERED: IRON SUCROSE 300 MG in SODIUM CHLORIDE 0.9% 250 ML IV SCH (18:00)
[2020-03-24] MEDS: TRAMADOL HCL 50 MG TABLET PO PRN (20:53)
[2020-03-24] MEDS: MELATONIN 3 MG TAB PO PRN (21:47)
[2020-03-25] MEDS: ACETAMINOPHEN 500 MG TAB PO SCH ×3 (05:51→20:31)
[2020-03-25] MEDS: LEVOTHYROXINE SODIUM 100 MCG TABLET PO SCH (05:52)
[2020-03-25] MEDS ORDERED: CEFAZOLIN 2000MG 2,000 MG/15 ML SYR IV ONE (06:00)
[2020-03-25 06:34] LABS: Basophils # (auto) 0.05 K/uL (0-0.2); Basophils % (auto) 0.6 %; Eosinophils # (auto) 0.32 K/uL (0-0.5); Eosinophils % (auto) 3.8 %; Hematocrit (blood only) 30.6 % (37-47); Hemoglobin 9.5 g/dL (12.0-16.0); Immature Granulocytes # (auto) 0.03 K/uL (0.00-0.02); Immature Granulocytes % (auto) 0.4 %; Lymphocytes # (auto) 2.02 K/uL (1.2-3.4); Lymphocytes % (auto) 23.9 %; Mean Corpuscular Hemoglobin 26.7 pg (25-34); Mean Platelet Volume 9.5 fL (7.4-10.4); Monocytes # (auto) 0.87 K/uL (0.11-0.59); Monocytes % (auto) 10.3 %; Neutrophils # (auto) 5.16 K/uL (1.4-6.5); Platelet Count 551 K/uL (130-400); RDW Coefficient of Variation 16.8 % (11.5-14.5); RDW Standard Deviation 52.7 fL (36.4-46.3); Red Blood Count 3.56 M/uL (4.2-5.4); White Blood Count 8.45 K/uL (4.8-10.8)
[2020-03-25 07:04] LABS: BUN Creatinine Ratio 19.5 (10-20); Calcium 8.6 mg/dl (8.5-10.1); Creatinine Clr Calc Pharmacy 44.7 ml/min; Est GFR (African American) 59.7; Est GFR (Non-African American) 51.5
[2020-03-25] MEDS ORDERED: BUPIVACAINE/EPINEPHRINE 0.25% 1:200,000 30 ML VIAL ONE (07:17)
[2020-03-25] MEDS ORDERED: BACITRACIN INJ 50,000 UNIT VIAL ONE (07:18)
[2020-03-25] MEDS ORDERED: MIDAZOLAM HCL 1 MG/ML 2ML VIAL ONE (07:18)
[2020-03-25] MEDS ORDERED: fentaNYL citrate 100 MCG/2 ML VIAL ONE (07:21)
[2020-03-25] MEDS ORDERED: PROPOFOL IV EMULSION 10 MG/ML 20 ML VIAL IV ONE (07:23)
[2020-03-25] MEDS ORDERED: ONDANSETRON INJ 2 MG/ML 2 ML VIAL ONE (07:23)
[2020-03-25] MEDS ORDERED: LIDOCAINE HCL 2% 2 ML VIAL/AMP(20MG/ML) INFIL ONE (07:23)
[2020-03-25] MEDS ORDERED: DEXAMETHASONE SOD INJ 4 MG/ML VIAL ONE ×2 (07:23)
[2020-03-25] MEDS ORDERED: ROCURONIUM BROMIDE 10 MG/ML 5 ML VIAL IV ONE ×3 (07:24→09:42)
[2020-03-25] MEDS: PANCREAZE (LIPASE 10,500U) CAP PO SCH ×3 (07:39→17:45)
[2020-03-25] MEDS: VENLAFAXINE HCL 50 MG TAB PO SCH ×2 (07:39→20:25)
[2020-03-25] MEDS: KETOROLAC 0.5% OP SOLN 5 ML BTL OP SCH ×2 (07:39→20:25)
[2020-03-25] MEDS: LIDOCAINE 5% 1 PATCH TD SCH (07:40)
[2020-03-25] MEDS: GABAPENTIN 300 MG CAP PO SCH ×2 (07:40→20:26)
[2020-03-25] MEDS: CYANOCOBALAMIN (VITAMIN B-12) 2,500 MCG TAB.SUBL SL SCH (07:40)
[2020-03-25] MEDS: LACTOBACILLUS ACIDOPHILUS (FLORANEX) TAB PO SCH (07:40)
[2020-03-25] MEDS: PANTOprazole 40 MG TAB PO SCH ×2 (07:40→20:27)
[2020-03-25] MEDS: CEROVITE ADV FORMULA TAB PO SCH (07:40)
[2020-03-25] MEDS: IRON POLYSACCHARIDE COMPLEX 150 MG CAPSULE PO SCH (07:40)
[2020-03-25] MEDS: cephALEXin 500 MG CAP PO SCH (07:40)
[2020-03-25] MEDS: prednisoLONE acetate 1% OP SUSP 5 ML BTL OP SCH ×2 (07:40→20:26)
[2020-03-25] MEDS: CHOLECALCIFEROL 1,000 UNITS 25 MCG TAB PO SCH (07:41)
--- NOTE | 2020-03-25 07:45 | Anesthesiology Consultation ---
Date of Service March 25, 2020 Covid 19 negative on 03/22/20. Assessment & Plan (1) Encounter for pre-operative examination: Chart Review Chart Review: Acceptable Risk for Surgery and Patient NOT seen in Pre Admission Testing Consults Requested none History Surgery Operation Date: 03/25/20 07:00 Proposed Procedures p L3-S1 Lumbar Decompression Possible Fusion, - Tony Monterroso DO s L5 Kyphoplasty - Tony Monterroso DO Height/Weight Height: 5 ft 3 in Weight: 76.7 kg Allergies Allergy/AdvReac Type Severity Reaction Status Date / Time oxycodone Allergy Intermediate DYSPNEA Verified 03/18/20 21:27 opium tincture AdvReac Intermediate HALLUCINATI Verified 02/22/20 14:48 ONS Ethanol AdvReac Intermediate HALLUCINATI Uncoded 02/22/20 14:48 ONS Medications Home Medications Medication Instructions Recorded Confirmed Last Taken gabapentin 100 mg PO BID 12/23/18 03/18/20 02/22/20 levothyroxine 100 mcg PO QAM 12/23/18 03/18/20 02/22/20 pantoprazole 40 mg PO BID 12/23/18 03/18/20 02/22/20 zolpidem 10 mg PO HS 12/23/18 03/18/20 02/21/20 PreserVision AREDS-2 1 tab PO BID 01/30/19 03/18/20 02/22/20 polysaccharide iron complex 150 mg PO QAM 01/30/19 03/18/20 02/22/20 [Poly-Iron] Creon 3 cap PO WM 09/30/19 03/18/20 02/22/20 Bifidobacterium infantis [Align] 4 mg PO QAM 02/22/20 03/18/20 02/22/20 acetaminophen-codeine 1 tab PO Q4H PRN #15 tab 02/22/20 03/18/20 Unknown [Tylenol-Codeine #3] cholecalciferol (vitamin D3) 25 mcg PO QAM 02/22/20 03/18/20 02/22/20 [Vitamin D3] cyanocobalamin (vitamin B-12) 2,500 mcg SUBLINGUAL QAM 02/22/20 03/18/20 02/22/20 [Vitamin B-12] hydrocortisone 1 applic TOPICAL BID 02/22/20 03/18/20 02/22/20 ketorolac 1 drp OPHTHALMIC (EYE) BID 02/22/20 03/18/20 02/22/20 lisinopril 20 mg PO QAM 02/22/20 03/18/20 02/22/20 prednisolone acetate 1 drp OPHTHALMIC (EYE) BID 02/22/20 03/18/20 02/22/20 venlafaxine 100 mg PO BID 02/22/20 03/18/20 02/22/20 Active Medications Generic Name Dose Route Start Last Admin Trade Name Freq PRN Reason Stop Dose Admin Acetaminophen 1,000 mg 03/19/20 22:00 03/25/20 05:51 Acetaminophen 500 Mg Tab PO 04/18/20 21:59 1,000 mg Q8 JACINTA Administration Lipase/Protease/Amylase 3 cap 03/19/20 08:00 03/25/20 07:39 Pancreaze (Lipase 10,500u) PO 04/18/20 07:59 Not Given TIDM JACINTA Cephalexin HCl 500 mg 03/20/20 21:00 03/25/20 07:40 Cephalexin 500 Mg Cap PO 03/25/20 20:59 Not Given BID JACINTA Cyanocobalamin 2,500 mcg 03/19/20 09:00 03/25/20 07:40 Vitamin B-12 SL 04/18/20 08:59 Not Given QAM [facility] Gabapentin 100 mg 03/22/20 14:00 03/24/20 13:06 Gabapentin 100 Mg Cap PO 04/21/20 13:59 100 mg DAILY@1400 JACINTA Administration Gabapentin 300 mg 03/22/20 21:00 03/25/20 07:40 Gabapentin 300 Mg Cap PO 04/21/20 20:59 Not Given BID JACINTA Ketorolac Tromethamine 1 drops 03/19/20 09:00 03/25/20 07:39 Acular 0.5% OP 04/18/20 08:59 Not Given BID JACINTA Lactobacillus Acidophilus 4 tab 03/19/20 09:00 03/25/20 07:40 Floranex PO 04/18/20 08:59 Not Given QAM [facility] Levothyroxine Sodium 100 mcg 03/19/20 06:30 03/25/20 05:52 Synthroid PO 04/18/20 06:29 100 mcg DAILYBB JACINTA Administration Lidocaine 1 patch 03/22/20 09:00 03/25/20 07:40 Lidocaine 5% 1 Patch TD 04/21/20 08:59 Not Given QAM [facility] Melatonin 3 mg 03/23/20 20:23 03/24/20 21:47 Melatonin 3 Mg Tab PO 04/22/20 20:22 3 mg HS PRN Administration Sleep Miscellaneous 1 ea 03/20/20 19:59 03/24/20 19:49 Remove Lidoderm Patch N/A 04/19/20 19:58 1 ea DAILY@1959 JACINTA Administration Multivitamins/Minerals 1 tab 03/19/20 09:00 03/25/20 07:40 Multivitamin W/ Minerals Tab PO 04/18/20 08:59 Not Given DAILY [facility] Naproxen 250 mg 03/23/20 20:23 03/24/20 20:52 Naproxen 250 Mg Tab PO 04/22/20 20:22 250 mg BID PRN Administration pain Pantoprazole Sodium 40 mg 03/19/20 09:00 03/25/20 07:40 Protonix PO 04/18/20 08:59 Not Given BID [facility] Polysaccharide Iron Complex 150 mg 03/19/20 09:00 03/25/20 07:40 Niferex-150 W/Vit C Cap PO 04/18/20 08:59 Not Given QAM [facility] Prednisolone Acetate 1 drops 03/19/20 09:00 03/25/20 07:40 Pred Forte 1% OP 04/18/20 08:59 Not Given BID [facility] Tramadol HCl 50 mg 03/23/20 20:23 03/24/20 20:53 Tramadol Hcl 50 Mg Tablet PO 04/22/20 20:22 50 mg Q4H PRN Administration Pain Venlafaxine HCl 100 mg 03/19/20 01:00 03/25/20 07:39 Effexor PO 04/18/20 00:59 Not Given BID [facility] Vitamin D 1,000 units 03/19/20 09:00 03/25/20 07:41 Vitamin D3 PO 04/18/20 08:59 Not Given QAM [facility] Past Medical History Medical History Anemia Anxiety Appendiceal carcinoid tumor S/P CHEMO (2011); STAGE IV PER PATIENT Arthritis Breast cancer Chemotherapy adverse reaction Chronic kidney disease PER RECORDS Depression Fibromyalgia Flank pain GERD (gastroesophageal reflux disease) OCCASIONAL History of blood transfusion 5+ YEARS AGO FELT RELATED TO CANCER History of DVT (deep vein thrombosis) 2012 History of pulmonary embolism 2012 HTN (hypertension) Hx of migraines Hypothyroidism Insomnia Kidney stone Macular degeneration Metastatic cancer Osteoarthritis Pancreatic cancer Pancreatic insufficiency Peripheral neuropathy Postoperative abdominal pain SOB (shortness of breath) UTI (urinary tract infection) Past Family History Family History Mother Family history of diabetes mellitus Past Surgical History Surgical History H/O total hysterectomy History of appendectomy History of cataract surgery RIGHT/LEFT History of colonoscopy History of cystoscopy History of esophagogastroduodenoscopy (EGD) History of tooth extraction History of vascular access device INSERTION/SUBSEQUENT REMOVAL Pancreatic tumor S/P RESECTION Surgical history of tubal ligation Social History Smoking Status: Never smoker Hx Alcohol Use: No Hx Substance Use: No substance use type: does not use Physical Exam Vital Signs Last Vital Signs Temp 36.2 C L 03/25/20 07:25 Pulse 72 03/25/20 07:25 Resp 17 03/25/20 07:25 BP 146/79 H 03/25/20 07:25 Pulse Ox 92 03/25/20 07:25 Testing Laboratory Results 03/25/20 06:06 03/25/20 06:06 PT 11.4 Seconds (9.0-12.0) 03/23/20 07:13 INR 1.1 (0.9-1.1) 03/23/20 07:13 APTT 27.5 Seconds (21.0-31.0) 03/23/20 07:13 Blood Type O Positive 03/24/20 06:00 Antibody Screen NEGATIVE 03/24/20 06:00 Electrocardiogram Date: 03/18/20 Findings: + NSR @ (73) and + poor R wave progression (unchanged from previous EKG) L anterior fascicle block Chest X-Ray Date: 03/18/20 XR chest 1V portable CLINICAL HISTORY: weakness dyspnea COMPARISON STUDY: 09/25/2019 FINDINGS: Atelectasis versus minimal infiltrative change both lung bases. Minimal upper lungs are clear. Chronic elevation right hemidiaphragm. IMPRESSION: Minimal bibasilar atelectatic change. ACT 112: Negative or not required by law. The above report was generated using voice recognition software. It may contain grammatical, syntax or spelling errors. Other Testing CT SCAN OF THE CHEST WITHOUT IV CONTRAST CLINICAL HISTORY: Pulmonary nodules. Clinical concern for metastatic disease. COMPARISON STUDY: Chest CT scans dated 12/26/2019 and 05/04/2017. Abdominal CT dated 02/22/2020. TECHNIQUE: CT scan of the thorax was performed from the thoracic inlet to the upper abdomen. Images are reviewed in the axial, sagittal, and coronal planes. IV contrast was not administered for this examination as per the referring clinician. A dose lowering technique was utilized adhering to the principles of ALARA. CT DOSE: 313.71 mGy.cm FINDINGS: Thyroid: The thyroid gland is mildly enlarged and heterogeneous. Thoracic aorta: The thoracic aorta is normal in caliber and demonstrates standard 3-vessel arch anatomy. Heart: The heart is mildly enlarged and without pericardial effusion. Lungs and pleural spaces: Evaluation of the lung parenchyma is significantly de graded by motion artifact. There is no airspace consolidation typical for pneumonia or pleural effusion. Foci of subsegmental atelectasis/scarring are seen at the lung bases. The trachea and central airways are clear. There is a 3 mm right lower lobe pulmonary nodule seen on image #100. This is unchanged from 2017 and of doubtful significance. Mediastinum: There is no mediastinal lymphadenopathy. Stephanie: Not well assessed without IV contrast. Axillae: There is no axillary lymphadenopathy. Upper abdomen: There is a small hiatal hernia. Large peritoneal implants are partially visualized along the left lobe of liver. This contains calcification versus postoperative change. The larger implant is seen on image #231 and measures approximately 6.5 cm. The partially imaged kidneys demonstrate cortical atrophy. A 1.3 cm cyst is noted in the left lobe of liver. A normal spleen is not identified. Splenules are seen in the left upper quadrant. Skeletal structures: The skeletal structures are osteopenic. Degenerative change and hyperkyphosis is seen in the thoracic spine. Numerous thoracic compression deformities are noted. No lytic or blastic bony lesions are seen. A benign- appearing chondroid lesion is noted in the right proximal humerus. IMPRESSION: 1. Motion compromised examination. 2. There is no evidence of intrathoracic metastatic disease. 3. There is no airspace consolidation typical for pneumonia or pleural effusion. 4. A 3 mm right lower lobe pulmonary nodule is unchanged dating back to 2016 and of doubtful significance. 5. Mild cardiomegaly. 6. Large peritoneal implants are noted in the upper abdomen. 7. Additional findings as above. ACT 112: Negative or not required by law. Electronically signed by: Gavin Darnell M.D. 03/19/2020 8:49 PM Dictated: 03/19/202041 Transcribed: 03/19/202041
[2020-03-25] MEDS ORDERED: ONDANSETRON INJ 2 MG/ML 2 ML VIAL IV PRN ×2 (07:58→11:55)
[2020-03-25] MEDS ORDERED: LABETALOL HCL IV 5 MG/ML 20ML IV PRN (07:58)
[2020-03-25] MEDS ORDERED: ePHEDrine sulfate 50 MG/ML AMP IV PRN (07:58)
[2020-03-25] MEDS ORDERED: PHENYLEPHRINE 100MCG/ML 5ML SYR IV PRN (07:58)
[2020-03-25] MEDS ORDERED: ATROPINE SULFATE 0.1 MG/ML 10ML SYR IV PRN (07:58)
--- NOTE | 2020-03-25 08:03 | History & Physical Bridge Note ---
Date of Service March 25, 2020 History & Physical Bridge Note I have examined the patient, reviewed the History & Physical and in the interval since the performance of the History & Physical I have noted the following changes of clinical significance: no changes noted
[2020-03-25] MEDS ORDERED: ePHEDrine sulfate 50 MG/ML AMP ONE ×2 (08:45→09:42)
[2020-03-25] MEDS ORDERED: WATER, STERILE FOR INJ 10 ML VIAL ONE (08:46)
[2020-03-25] MEDS ORDERED: FLOSEAL HEMOSTATIC MATRIX 10ML TOP ONE (08:58)
--- NOTE | 2020-03-25 10:05 | Operative Report ---
Post Operative Report Pre & Post Diagnosis Operation Date: 03/25/20 07:00 Pre-Op Diagnosis: Spinal stenosis with spondylolisthesis and L5 compression fracture Post-Op Diagnosis: Same I identified the patient and participated in the time-out.: Yes Procedure Operation Date: 03/25/20 07:00 Actual Procedures #1 lumbar decompression with bilateral medial facetectomies and foraminotomies L3-4, L4-5 and L5-S1. #2 posterior spinal fusion L4-5 L5-S1. #3 placement posterior instrumentation L4-5 L5-S1. #4 kyphoplasty L5 vertebral body. #5 biopsy of L5 vertebral body. #6 placement locally harvested morselized autograft in the posterior gutters. #7 placement infuse collagen sponge, master graft in the posterior lateral gutters L4-S1. Surgeon Tony Monterroso, Lens Grinder Joseline Rivera Estimated Blood Loss 200 Findings Consistent with Post-Op Diagnosis Specimens L5 vertebral body biopsy Indications This is a 74-year-old female who presents above-mentioned diagnosis having marked clinical status weakness affecting left lower extremity elected to undergo the above-mentioned procedure. Description of Procedure Patient was met with preoperatively case discussed all questions addressed. At that point patient was taken back to the operative suite underwent an patient placed in a prone position the Jamie table on top of the Madan frame. All bony prominences well-padded eyes inspected to ensure no external pressure placed upon them. This point the lumbar spine was prepped and draped in a sterile fashion. Sharp dissection with the assistance of Bovie cautery was performed down to and exposing the lamina and transverse processes of L4-L5 and sacral ala bilaterally. From caudal cephalad fashion complete laminectomy L5 L4 and partial laminectomy of L3 was performed including bilateral medial facetectomies and foraminotomies addressing severe spinal stenosis. I then placed 2 Kyphon working cannulas by way of a transpedicular approach into the L5 vertebral body. 2 core biopsies were obtained. I then inserted 20 mm Kyphon balloons inflated them under fluoroscopic visualization. These were subsequently removed and approximately 3 cc of Kyphon cement injected into the vertebral body demonstrating excellent interdigitation. The Kyphon working cannulas were then removed and then I placed pedicle screws into the L5. This is followed up with screws placed in L4 and S1 levels bilaterally with the assistance of fluoroscopy and appropriately sized yannick locked into position. The transverse processes of L4-L5 and sacral ala were then burred to subcortical bleeding bone. Infuse collagen sponge master graft local autograft was then placed in the posterior gutters. 15 round JULIANA drain inserted. The incision was then closed with 1 Vicryl in the fascia 2-0 Vicryl subcutaneously and 4 Monocryl for final closure. Steri-Strip sterile dressing placed. Patient will continue PACU stable condition. Please note spinal cord monitoring was utilized that the procedure no changes noted. Lastly Joseline Rivera was present at the entire procedure involved the patient positioning complex portions of the surgery and final skin closure. I attest to the content of the Intraoperative Record and any orders documented therein. Any exceptions are noted below.
--- NOTE | 2020-03-25 10:15 | Fluoroscopy Report ---
INTRAOPERATIVE RADIOGRAPHS CLINICAL HISTORY: L3-S1 spinal fusion. Fluoroscopy time: 70 seconds. FINDINGS: 3 spot fluoroscopic views of the lumbar spine are presented. There is postoperative change from laminectomy and posterior fusion from L3-S1. Interpedicular screws are present at all levels. Th e orthopedic hardware appears intact. Kyphoplasty cement is noted in the body of L5 and in the L4-5 d isc space. IMPRESSION: Intraoperative images from L3-L5 spinal fusion as above. Electronically signed by: Gavin Darnell M.D. 03/25/2020 10:14 AM
[2020-03-25] MEDS: fentaNYL citrate 100 MCG/2 ML VIAL IV PRN ×4 (10:34→10:49)
[2020-03-25] MEDS: HYDROmorphone INJ 1 MG/ML SYRINGE IV PRN ×2 (11:21→11:26)
--- NOTE | 2020-03-25 11:21 | Anesthesiology Progress Note ---
Date of Service March 25, 2020 Anesthesia Post Procedure Vital Signs Vital Signs: Temp Pulse Pulse Pulse Resp BP BP 03/25/20 11:10 74 12 118/62 03/25/20 11:01 36.4 C L 76 12 122/65 03/25/20 10:50 70 12 120/61 03/25/20 10:40 72 17 125/66 03/25/20 10:30 76 17 124/71 03/25/20 10:21 36.5 C 91 H 12 145/77 H 03/25/20 07:58 36.5 C 70 18 127/77 03/25/20 07:25 36.2 C L 72 17 146/79 H 03/24/20 22:57 36.6 C 60 16 120/73 03/24/20 18:46 36.8 C 69 17 124/80 03/24/20 17:58 36.8 C 69 16 115/80 03/24/20 15:06 36.6 C 58 L 16 122/79 Pulse Ox 03/25/20 11:10 98 03/25/20 11:01 99 03/25/20 10:50 100 03/25/20 10:40 99 03/25/20 10:30 100 03/25/20 10:21 100 03/25/20 07:58 95 03/25/20 07:25 92 03/24/20 22:57 91 03/24/20 18:46 95 03/24/20 17:58 95 03/24/20 15:06 95 Pain Intensity Left Flank: Pain Intensity: 0 Left Leg: Pain Intensity: 2 Lower Back: Pain Intensity: 2 Transfer of Care Handoff Completed per policy Notes Mental Status: alert / awake / arousable Patient Amnestic to Procedure: Yes Nausea / Vomiting: adequately controlled Pain: adequately controlled Airway Patency, RR, SpO2: stable & adequate BP & HR: stable & adequate Hydration State: stable & adequate Anesthetic Complications: no major complications apparent and Pt Satisfied with anesthetic care
[2020-03-25] MEDS ORDERED: bisacodyL 10 MG SUPP PR PRN (11:55)
[2020-03-25] MEDS ORDERED: MAGNESIUM HYDROXIDE SUSP 30 ML UDC PO PRN (11:55)
[2020-03-25] MEDS ORDERED: DO NOT ADMINISTER FLU VACCINE PRN (11:55)
[2020-03-25] MEDS ORDERED: ACETAMINOPHEN 1,000 MG/100 ML VIAL IV PRN (11:55)
[2020-03-25] MEDS ORDERED: SOD PHOSPHATE/SOD BIPHOSPHATE ENEMA 132 ML BTL PR PRN (11:55)
[2020-03-25] MEDS ORDERED: HYDROmorphone INJ 1 MG/ML SYRINGE IV PRN (11:55)
[2020-03-25] MEDS ORDERED: ACETAMINOPHEN 500 MG TAB PO PRN (11:55)
[2020-03-25] MEDS ORDERED: DO NOT ADMINISTER PNEUMOCOCCAL VACCINE PRN (11:55)
[2020-03-25] MEDS ORDERED: PROMETHAZINE HCL 12.5 MG in SODIUM CHLORIDE 0.9% 50 ML IV PRN (11:55)
[2020-03-25] MEDS ORDERED: NALOXONE HCL 0.4 MG/1 ML VIAL/CARP IV PRN (11:55)
[2020-03-25] MEDS ORDERED: ONDANSETRON 4 MG OD TAB PO PRN (11:55)
[2020-03-25] MEDS ORDERED: METOCLOPRAMIDE HCL INJ 5 MG/ML 2 ML VIAL IV PRN (11:55)
[2020-03-25] MEDS ORDERED: LORazepam 0.5 MG TAB PO PRN (11:55)
[2020-03-25] MEDS ORDERED: ALUMINUM/MAGNESIUM SUSP 30 ML UDC PO PRN (11:55)
[2020-03-25] MEDS ORDERED: LORazepam 0.5 MG/1 ML VIAL IV PRN (11:55)
[2020-03-25] MEDS ORDERED: HYDROmorphone INJ 0.5 MG/0.5 ML SYR IV PRN (11:55)
[2020-03-25] MEDS ORDERED: FAMOTIDINE 20 MG TAB PO PRN (11:55)
[2020-03-25] MEDS: SODIUM CHLORIDE 0.9% 1000ML 1,000 ML IV SCH ×2 (12:24→20:29)
[2020-03-25] MEDS: TRAMADOL HCL 50 MG TABLET PO PRN (12:24)
[2020-03-25] MEDS ORDERED: GLYCOPYRROLATE 0.2 MG/ML VIAL ONE (13:18)
[2020-03-25] MEDS ORDERED: NEOSTIGMINE METHYLSULFATE 1 MG/ML 10ML VIAL ONE (13:19)
--- NOTE | 2020-03-25 13:39 | Hospitalist Progress Note ---
Date of Service March 25, 2020 Assessment & Plan (1) Falls: Gris Avila is a 74 year old woman with PMH significant for Stage IV appendiceal carcinoid cancer who has had progressive weakness and increasing falls who also presents with worsening confusion in the last week. Weakness and falls/Acute encephalopathy-likely secondary to h/o lumbar spinal stenosis and radiculopathy causing pain and weakness and then was taking new prescription for oxycodone which caused confusion Progressive, patient not doing well at home, even using walker is elderly and having difficulty caring for her No longer confused, encephalopathy resolved after stopping oxycodone and treating UTI -also presented with pre renal KELLY and a low albumin, UTI contributing-all now resolved -Continue to treat UTI, KELLY now resolved with IVFs -MRI L-spine reviewed and with severe stenosis L4-5, L5 compression fracture -PT/OT consults appreciated-recommend rehab -STOPPED all opioids (2) Fracture, lumbar vertebra, compression: L5 vertebral compression fracture/Lumbar spinal stenosis with LLE radiculopathy-continues to have significant pain down the left and now some on the right lower extremity along with numbness and some mild weakness Worked with PT/OT -recommends rehab -Added lidocaine patch to the lower back -increased gabapentin to 300 mg po bid and added a 100 mg dose at 1400 -continue Tylenol 1000 mg p.o. scheduled every 8 hours for pain control and and effort to avoid opioids -added on Aleve 250mg po bid -added on tramadol 50mg po q4h prn but she has not yet taken a dose -consult Ortho spine appreciated-offered kyphoplasty and laminectomy with decompression s/p L1 decompression, L5 kyphoplasty, tolerated very well, stable post op Dr. Monterroso will follow post op and give further recommendations, appreciate his help (3) Contusion of knee, right: secondary to fall, not causing an acute issue (4) Weakness: as above, secondary to lumbar spinal stenosis (5) Lumbar back pain: as above, secondary to L5 comp fx s/p kyphoplasty continue to assess pain (6) Hypothyroidism: Hypothyroidism/thyroid nodule-seen on imaging of the CT cervical spine Slow growth of thyroid nodule from previous scan 12mm to 15 mm TSH normal-does not appear to be related to her current presentation but may warrant outpatient workup -Continue levothyroxine (7) History of DVT (deep vein thrombosis): add SCDs now that has to STOP Lovenox for back surgery (8) Depression: continue Effexor (9) Anxiety: continue Effexor (10) Appendiceal carcinoid tumor: Metastatic appendiceal carcinoid-with history of numerous surgeries for debulking and resection of tumors performed by surgeon in [place] -Follow-up as an outpatient No acute issues (11) Pancreatic insufficiency: Pancreatic insufficiency-secondary to partial resection of pancreas -Continue Creon (12) Anemia: With Fe def anemia here, hgb 9.9, with reactive thrombocytosis to Fe-def anemia -giving Venofer 300mg IV daily x 3 doses-last dose will need to be ordered on 03/25 check H/H in the morning now that she is s/p spine surgery (13) GERD (gastroesophageal reflux disease): GERD-stable, continue PPI (14) Spinal stenosis, lumbar region with neurogenic claudication: as above (15) Peripheral neuropathy: continue gabapentin (16) Complicated UTI (urinary tract infection): UTI-noted to have abnormal UA as an outpatient at the [facility] clinic. Urine culture is now back today growing E. coli that is pansensitive -Received 2 days of IV ceftriaxone and have since converted to Keflex 500 mg p.o. twice daily for total of 7 days-last dose 03/25 -No further urinary retention no fever, UTI is completely treated (17) KELLY (acute kidney injury): KELLY-resolved, creatinine down to 1.0 from 1.5 Likely pre renal, secondary to poor p.o. intake Also with history of urinary retention which may have been contributing-continue to bladder scan and straight cath for PVR greater than 350 mL's -is actually not making much urine now-encouraged increased po fluids (18) Abnormal chest xray: Pulmonary imaging findings New airspace opacity in lung apex on left, possible pleural effusion on left, Obtained chest CT to better evaluate concern for possible metastasis-with some motion artifact but nothing noted in that area -Also noted to have left jugular bulb dehiscence on imaging-I discussed with the on-call radiologist who confirmed this is unchanged from 2012 and therefore is not clinically significant (19) DVT prophylaxis: DVT PPx: Lovenox initially, held for spine surgery, resume when okay with surgery DIspo: PT/OT after spine surgery DNR/DNI Admission and Anticipated Discharge Date Admission Date: March 18, 2020 Subjective patient seen after lumbar surgery doing quite well after her L1 decompression and kyphoplasty of L5 pain is minimal, she tolerated lunch, she is breathing well educated her on importance of incentive spirometry no nausea, no vomiting, no chest pain, no fever reviewed operative note, no complications reviewed chart since admission labs show normal WBC, stable Hb, platelets 551 BMP shows normal Cr and electrolytes Review of Systems Review of Systems: All systems reviewed & are unremarkable except as noted in Subjective Musculoskeletal: + back pain Physical Exam Constitutional: WD/WN, vitals as above Eyes: PERRL, conjunctivae normal, anicteric sclerae ENMT: external ear and nose normal, oropharynx normal Neck: trachea midline, no thyromegaly Respiratory: normal respiratory effort, lungs clear to auscultation Cardiovascular: RRR, no murmur, no edema Gastrointestinal (Abdomen): normal bowel sounds, soft, nontender, no hepatosplenomegaly Musculoskeletal: Head/Neck/Chest: normocephalic, head atraumatic and neck supple Spine: + limited thoraco-lumbar ROM (due to pain) Extremities: extremities normal to inspection and strength 5/5 throughout; no cyanosis, no clubbing and no petechiae Skin: no rashes, warm and dry Neurologic: patellar DTR's 2+ bilat, sensation intact and PERRL, EOMI, accommodation nl, no face palsy, no dysarthria Psychiatric: A+Ox3, euthymic affect Lymphatic: no cervical or axillary lymphadenopathy Results & Data Results & Data ([facility]) Vital Signs (Past 12 Hours) Vital Signs Temp Pulse Pulse Pulse Pulse Resp BP 03/25/20 12:52 36.5 C 76 18 108/69 03/25/20 12:22 36.5 C 81 18 115/71 03/25/20 11:52 36.4 C L 73 16 120/75 03/25/20 11:40 74 14 112/64 03/25/20 11:30 78 16 122/65 03/25/20 11:21 69 15 115/63 03/25/20 11:15 72 16 113/62 03/25/20 11:10 74 12 118/62 03/25/20 11:01 36.4 C L 76 12 122/65 03/25/20 10:50 70 12 120/61 03/25/20 10:40 72 17 125/66 03/25/20 10:30 76 17 124/71 03/25/20 10:21 36.5 C 91 H 12 145/77 H 03/25/20 07:58 36.5 C 70 18 127/77 03/25/20 07:25 36.2 C L 72 17 146/79 H Pulse Ox 03/25/20 12:52 97 03/25/20 12:22 99 03/25/20 11:52 97 03/25/20 11:40 98 03/25/20 11:30 98 03/25/20 11:21 98 03/25/20 11:15 98 03/25/20 11:10 98 03/25/20 11:01 99 03/25/20 10:50 100 03/25/20 10:40 99 03/25/20 10:30 100 03/25/20 10:21 100 03/25/20 07:58 95 03/25/20 07:25 92 Laboratory Results Laboratory Results - last 24 hr 03/25/20 03/25/20 06:06 06:06 WBC 8.45 RBC 3.56 L Hgb 9.5 L Hct 30.6 L MCV 86.0 MCH 26.7 MCHC 31.0 L RDW Std Deviation 52.7 H RDW Coeff of Gina 16.8 H Plt Count 551 H MPV 9.5 Immature Gran % (Auto) 0.4 Neut % (Auto) 61.0 Lymph % (Auto) 23.9 [place] % (Auto) 10.3 Eos % (Auto) 3.8 Baso % (Auto) 0.6 Neut # (Auto) 5.16 Lymph # (Auto) 2.02 [place] # (Auto) 0.87 H Eos # (Auto) 0.32 Baso # (Auto) 0.05 Immature Gran # (Auto) 0.03 H Sodium 142 Potassium 4.0 Chloride 110 H Carbon Dioxide 27 Anion Gap 5.0 BUN 20 H Creatinine 1.05 Est Cr Clr Drug Dosing 44.7 Est GFR ( Amer) 59.7 Est GFR (Non-Af Amer) 51.5 BUN/Creatinine Ratio 19.5 Glucose 112 H Calcium 8.6 Medications Administered Current Inpatient Medications Acetaminophen (Acetaminophen 500 Mg Tab) 1,000 mg PO Q8 JACINTA Stop: 04/18/20 21:59 Last Admin: 03/25/20 05:51 Dose: 1,000 mg Documented by: Acetaminophen (Acetaminophen 500 Mg Tab) 1,000 mg PO Q8H PRN PRN Reason: MILD Pain Scale 1,2,3 & Pre PT Stop: 04/24/20 11:54 Al Hydrox/Mg Hydrox/Simethicone (Aluminum/Magnesium Susp 30 Ml Udc) 30 ml PO Q6H PRN PRN Reason: Dyspepsia Stop: 04/24/20 11:54 Lipase/Protease/Amylase (Pancreaze (Lipase 10,500u)) 3 cap PO TIDM [facility] Stop: 04/18/20 07:59 Last Admin: 03/25/20 12:24 Dose: 3 cap Documented by: Bisacodyl (Bisacodyl 10 Mg Supp) 10 mg IN DAILY PRN PRN Reason: Constipation Stop: 04/24/20 11:54 Cephalexin HCl (Cephalexin 500 Mg Cap) 500 mg PO BID [facility] Stop: 03/25/20 20:59 Last Admin: 03/25/20 07:40 Dose: Not Given Documented by: Cyanocobalamin (Vitamin B-12) 2,500 mcg SL QAM [facility] Stop: 04/18/20 08:59 Last Admin: 03/25/20 07:40 Dose: Not Given Documented by: Diphenhydramine HCl (Diphenhydramine Hcl 25 Mg Cap) 25 mg PO Q6H PRN PRN Reason: Allergic Rhinitis/Insomnia Stop: 04/24/20 11:54 Famotidine (Famotidine 20 Mg Tab) 20 mg PO Q12H PRN PRN Reason: Dyspepsia Stop: 04/24/20 11:54 Gabapentin (Gabapentin 100 Mg Cap) 100 mg PO DAILY@1400 [facility] Stop: 04/21/20 13:59 Last Admin: 03/24/20 13:06 Dose: 100 mg Documented by: Gabapentin (Gabapentin 300 Mg Cap) 300 mg PO BID [facility] Stop: 04/21/20 20:59 Last Admin: 03/25/20 07:40 Dose: Not Given Documented by: Hydrocortisone (Hydrocortisone 2.5%) 1 appln EXT BID PRN PRN Reason: REDNESS Stop: 04/18/20 08:59 Hydromorphone HCl (Hydromorphone Inj 0.5 Mg/0.5 Ml Syr) 0.5 mg IV Q3H PRN PRN Reason: MOD pain (scale 4-6) & Pre PT Stop: 04/08/20 11:54 Hydromorphone HCl (Hydromorphone Inj 1 Mg/Ml Syringe) 1 mg IV Q3H PRN PRN Reason: severe pain (scale 7-10) Stop: 04/08/20 11:54 Hydroxyzine HCl (Hydroxyzine Hcl 25 Mg Tab) 25 mg PO Q8H PRN PRN Reason: Anxiety Stop: 04/24/20 11:54 Lorazepam (Ativan) 0.5 mg in 1 mls @ 0.5 mls/min IV Q8H PRN PRN Reason: Sedation/Anxiety Stop: 04/24/20 11:54 Acetaminophen (Ofirmev) 1,000 mg in 100 mls @ 400 mls/hr IV Q8H PRN PRN Reason: MILD Pain Rating 1,2,3 Stop: 03/26/20 11:54 Cefazolin Sodium (Ancef 2000mg) 2,000 mg in 15 mls @ 3.75 mls/min IV Q8H JACINTA; Protocol Stop: 03/26/20 00:03 Promethazine HCl 12.5 mg/ (Sodium Chloride) 50.5 mls @ 204 mls/hr IV Q6H PRN PRN Reason: Nausea &/or Vomiting Stop: 04/24/20 11:54 Sodium Chloride (Nss 1000ml) 1,000 mls @ 100 mls/hr IV .Q10H JACINTA Stop: 04/24/20 11:54 Last Admin: 03/25/20 12:24 Dose: 100 mls/hr Documented by: Influenza Virus Vaccine Quadrival (Do Not Administer Flu Vaccine) 1 ea N/A PRN PRN PRN Reason: Notification Stop: 04/24/20 11:54 Ketorolac Tromethamine (Acular 0.5%) 1 drops OP BID [facility] Stop: 04/18/20 08:59 Last Admin: 03/25/20 07:39 Dose: Not Given Documented by: Lactobacillus Acidophilus (Floranex) 4 tab PO QAM [facility] Stop: 04/18/20 08:59 Last Admin: 03/25/20 07:40 Dose: Not Given Documented by: Levothyroxine Sodium (Synthroid) 100 mcg PO DAILYBB [facility] Stop: 04/18/20 06:29 Last Admin: 03/25/20 05:52 Dose: 100 mcg Documented by: Lidocaine (Lidocaine 5% 1 Patch) 1 patch TD QAM [facility] Stop: 04/21/20 08:59 Last Admin: 03/25/20 07:40 Dose: Not Given Documented by: Lorazepam (Lorazepam 0.5 Mg Tab) 0.5 mg PO Q8H PRN PRN Reason: Sedation/Anxiety Stop: 04/24/20 11:54 Magnesium Hydroxide (Magnesium Hydroxide Susp 30 Ml Udc) 30 ml PO DAILY PRN PRN Reason: Constipation Stop: 04/24/20 11:54 Melatonin (Melatonin 3 Mg Tab) 3 mg PO HS PRN PRN Reason: Sleep Stop: 04/22/20 20:22 Last Admin: 03/24/20 21:47 Dose: 3 mg Documented by: Metoclopramide HCl (Metoclopramide Hcl Inj 5 Mg/Ml 2 Ml Vial) 10 mg IV Q6H PRN PRN Reason: Nausea &/or Vomiting Stop: 04/24/20 11:54 Miscellaneous (Remove Lidoderm Patch) 1 ea N/A DAILY@1958 [facility] Stop: 04/19/20 19:58 Last Admin: 03/24/20 19:49 Dose: 1 ea Documented by: Multivitamins/Minerals (Multivitamin W/ Minerals Tab) 1 tab PO DAILY [facility] Stop: 04/18/20 08:59 Last Admin: 03/25/20 07:40 Dose: Not Given Documented by: Naloxone HCl (Naloxone Hcl 0.4 Mg/1 Ml Vial/Carp) 0.1 mg IV Q5M PRN; Protocol PRN Reason: Oversedation/Resp Depression Stop: 04/24/20 11:54 Ondansetron HCl (Zofran) 4 mg IV Q6H PRN PRN Reason: Nausea Stop: 04/18/20 00:59 Ondansetron HCl (Ondansetron Inj 2 Mg/Ml 2 Ml Vial) 4 mg IV Q6H PRN PRN Reason: Nausea &/or Vomiting Stop: 04/24/20 11:54 Ondansetron HCl (Ondansetron 4 Mg Od Tab) 4 mg PO Q6H PRN PRN Reason: Nausea Stop: 04/24/20 11:54 Pantoprazole Sodium (Protonix) 40 mg PO BID [facility] Stop: 04/18/20 08:59 Last Admin: 03/25/20 07:40 Dose: Not Given Documented by: Pneumococcal Polyvalent Vaccine (Do Not Administer Pneumococcal Vaccine) 1 ea N/A PRN PRN PRN Reason: Notification Stop: 04/24/20 11:54 Polyethylene Glycol (Miralax Powder Packet) 17 gm PO DAILY PRN PRN Reason: Constipation Stop: 04/18/20 00:59 Polyethylene Glycol (Polyethylene (Miralax) 17 Gm Pack) 17 gm PO Q6 JACINTA Stop: 04/25/20 05:59 Polysaccharide Iron Complex (Niferex-150 W/Vit C Cap) 150 mg PO QAM [facility] Stop: 04/18/20 08:59 Last Admin: 03/25/20 07:40 Dose: Not Given Documented by: Prednisolone Acetate (Pred Forte 1%) 1 drops OP BID [facility] Stop: 04/18/20 08:59 Last Admin: 03/25/20 07:40 Dose: Not Given Documented by: Senna/Docusate Sodium (Docusate Sodium/Senna 50/8.6mg Tab) 2 tab PO HS [facility] Stop: 04/24/20 20:59 Sodium Biphosphate/Sodium Phosphate (Sod Phosphate/Sod Biphosphate Enema 132 Ml Btl) 132 ml IN ONE PRN PRN Reason: Constipation Stop: 04/24/20 11:54 Tramadol HCl (Tramadol Hcl 50 Mg Tablet) 50 - 100 mg PO Q4H PRN PRN Reason: Moderate-Severe Pain & Pre PT Stop: 04/24/20 11:54 Last Admin: 03/25/20 12:24 Dose: 100 mg Documented by: Venlafaxine HCl (Effexor) 100 mg PO BID [facility] Stop: 04/18/20 00:59 Last Admin: 03/25/20 07:39 Dose: Not Given Documented by: Vitamin D (Vitamin D3) 1,000 units PO QAM [facility] Stop: 04/18/20 08:59 Last Admin: 03/25/20 07:41 Dose: Not Given Documented by: PG Care Time/CCT Total # of Minutes Spent Total Time Spent with Patient: Total time spent is greater than 50% in coordination of care (as documented) at patient's floor/unit and/or counseling patient: Coding Level of Care Code 11703 Subseq Hosp Care Lvl 3 Diagnoses Falls W19.XXXA Encounter type: initial encounter Fracture, lumbar vertebra, compression S32.000A Contusion of knee, right S80.01XA Encounter type: initial encounter Weakness R53.1 Lumbar back pain M54.5 Hypothyroidism E03.9 History of DVT (deep vein thrombosis) Z86.718 Depression F32.9 Anxiety F41.9 Appendiceal carcinoid tumor D3A.020 Pancreatic insufficiency K86.89 Anemia D64.9 GERD (gastroesophageal reflux disease) K21.9 Esophagitis presence: esophagitis presence not specified Spinal stenosis, lumbar region with neurogenic claudication M48.062 Peripheral neuropathy G62.9 Complicated UTI (urinary tract infection) N39.0 KELLY (acute kidney injury) N17.9 Abnormal chest xray R93.89 DVT prophylaxis Z29.9 (1) GERD (gastroesophageal reflux disease) Esophagitis presence: esophagitis presence not specified Qualified Code(s): K21.9 - Gastro-esophageal reflux disease without esophagitis (2) Falls Encounter type: initial encounter Qualified Code(s): W19.XXXA - Unspecified fall, initial encounter (3) Contusion of knee, right Encounter type: initial encounter Qualified Code(s): S80.01XA - Contusion of right knee, initial encounter
[2020-03-25] MEDS: GABAPENTIN 100 MG CAP PO SCH (14:19)
[2020-03-25] MEDS: CEFAZOLIN 2000MG 2,000 MG/15 ML SYR IV SCH (16:10)
[2020-03-25] MEDS: DOCUSATE SODIUM/SENNA 50/8.6MG TAB PO SCH (20:27)
[2020-03-25] MEDS: MELATONIN 3 MG TAB PO PRN (20:31)
[2020-03-26] MEDS ORDERED: IBUPROFEN 200 MG TAB PO STA (00:21)
[2020-03-26] MEDS: CEFAZOLIN 2000MG 2,000 MG/15 ML SYR IV SCH (00:33)
[2020-03-26] MEDS ORDERED: IBUPROFEN 200 MG TAB PO ONE (00:41)
[2020-03-26] MEDS: ACETAMINOPHEN 500 MG TAB PO SCH ×3 (05:55→22:17)
[2020-03-26] MEDS: POLYETHYLENE (MIRALAX) 17 GM PACK PO SCH ×3 (05:55→18:37)
[2020-03-26] MEDS: LEVOTHYROXINE SODIUM 100 MCG TABLET PO SCH (05:56)
[2020-03-26 06:15] LABS: Basophils # (auto) 0.01 K/uL (0-0.2); Hematocrit (blood only) 26.6 % (37-47); Hemoglobin 8.2 g/dL (12.0-16.0); Immature Granulocytes # (auto) 0.11 K/uL (0.00-0.02); Immature Granulocytes % (auto) 0.5 %; Lymphocytes # (auto) 1.92 K/uL (1.2-3.4); Lymphocytes % (auto) 9.4 %; Mean Corpuscular Hemoglobin 26.6 pg (25-34); Mean Corpuscular Hgb Conc 30.8 g/dL (32-36); Mean Corpuscular Volume 86.4 fL (80-100); Mean Platelet Volume 9.4 fL (7.4-10.4); Monocytes % (auto) 7.8 %; Neutrophils % (auto) 82.3 %; Platelet Count 497 K/uL (130-400); RDW Coefficient of Variation 16.7 % (11.5-14.5); RDW Standard Deviation 52.1 fL (36.4-46.3); Red Blood Count 3.08 M/uL (4.2-5.4); White Blood Count 20.44 K/uL (4.8-10.8)
[2020-03-26 06:46] LABS: BUN Creatinine Ratio 19.5 (10-20); Calcium 8.5 mg/dl (8.5-10.1); Creatinine Clr Calc Pharmacy 45.1 ml/min; Est GFR (African American) 60.4; Est GFR (Non-African American) 52.1; Potassium 4.6 mmol/L (3.5-5.1)
--- NOTE | 2020-03-26 07:28 | Anesthesiology Progress Note ---
Date of Service March 26, 2020 Anesthesia Post Procedure Vital Signs Vital Signs: Temp Pulse Pulse Pulse Pulse Resp BP 03/26/20 07:20 36.9 C 86 16 118/67 03/26/20 03:07 37.0 C 82 16 123/65 03/25/20 23:04 36.9 C 72 16 122/72 03/25/20 14:52 36.4 C L 80 18 115/66 03/25/20 13:52 36.5 C 84 18 101/63 03/25/20 12:52 36.5 C 76 18 108/69 03/25/20 12:22 36.5 C 81 18 115/71 03/25/20 11:52 36.4 C L 76 14 101/64 03/25/20 11:40 74 14 112/64 03/25/20 11:30 78 16 122/65 03/25/20 11:21 69 15 115/63 03/25/20 11:15 72 16 113/62 03/25/20 11:10 74 12 118/62 03/25/20 11:01 36.4 C L 76 12 122/65 03/25/20 10:50 70 12 120/61 03/25/20 10:40 72 17 125/66 03/25/20 10:30 76 17 124/71 03/25/20 10:21 36.5 C 91 H 12 145/77 H 03/25/20 07:58 36.5 C 70 18 127/77 Pulse Ox 03/26/20 07:20 96 03/26/20 03:07 92 03/25/20 23:04 95 03/25/20 14:52 96 03/25/20 13:52 95 03/25/20 12:52 97 03/25/20 12:22 99 03/25/20 11:52 95 03/25/20 11:40 98 03/25/20 11:30 98 03/25/20 11:21 98 03/25/20 11:15 98 03/25/20 11:10 98 03/25/20 11:01 99 03/25/20 10:50 100 03/25/20 10:40 99 03/25/20 10:30 100 03/25/20 10:21 100 03/25/20 07:58 95 Pain Intensity Left Flank: Pain Intensity: 0 Left Leg: Pain Intensity: 0 Lower Back: Pain Intensity: 4 Notes Mental Status: alert / awake / arousable and participated in evaluation Patient Amnestic to Procedure: Yes Nausea / Vomiting: adequately controlled Pain: adequately controlled Airway Patency, RR, SpO2: stable & adequate BP & HR: stable & adequate Hydration State: stable & adequate Anesthetic Complications: no major complications apparent and Pt Satisfied with anesthetic care
[2020-03-26] MEDS ORDERED: SODIUM CHLORIDE 0.9% 250 ML IV PRN (07:49)
[2020-03-26] MEDS: PANCREAZE (LIPASE 10,500U) CAP PO SCH ×3 (07:53→18:37)
--- NOTE | 2020-03-26 08:27 | Orthopedic Progress Note ---
Date of Service March 26, 2020 Assessment & Plan (1) Spinal stenosis, lumbar region with neurogenic claudication: Admission and Anticipated Discharge Date Admission Date: March 18, 2020 This time initiate physical therapy monitor JULIANA output consider rehab versus home in the next few days. Subjective Back pain controlled leg symptoms markedly improved. Physical Exam Physical Exam: Patient seen at the bedside. Is good strength testing. Results & Data ([facility]) Vital Signs (Past 12 Hours) Vital Signs Temp Pulse Pulse Resp BP Pulse Ox 03/26/20 07:20 36.9 C 86 16 118/67 96 03/26/20 03:07 37.0 C 82 16 123/65 92 03/25/20 23:04 36.9 C 72 16 122/72 95
[2020-03-26] MEDS: CHOLECALCIFEROL 1,000 UNITS 25 MCG TAB PO SCH (08:41)
[2020-03-26] MEDS: GABAPENTIN 300 MG CAP PO SCH ×2 (08:41→22:16)
[2020-03-26] MEDS: IRON POLYSACCHARIDE COMPLEX 150 MG CAPSULE PO SCH (08:42)
[2020-03-26] MEDS: PANTOprazole 40 MG TAB PO SCH ×2 (08:42→22:17)
[2020-03-26] MEDS: CYANOCOBALAMIN (VITAMIN B-12) 2,500 MCG TAB.SUBL SL SCH (08:42)
[2020-03-26] MEDS: CEROVITE ADV FORMULA TAB PO SCH (08:43)
[2020-03-26] MEDS: VENLAFAXINE HCL 50 MG TAB PO SCH ×2 (08:43→22:16)
[2020-03-26] MEDS: LACTOBACILLUS ACIDOPHILUS (FLORANEX) TAB PO SCH (08:44)
[2020-03-26] MEDS: KETOROLAC 0.5% OP SOLN 5 ML BTL OP SCH ×2 (08:45→22:17)
[2020-03-26] MEDS: prednisoLONE acetate 1% OP SUSP 5 ML BTL OP SCH ×2 (08:45→22:17)
[2020-03-26] MEDS: LIDOCAINE 5% 1 PATCH TD SCH (08:52)
[2020-03-26] MEDS: TRAMADOL HCL 50 MG TABLET PO PRN ×3 (11:48→23:00)
[2020-03-26] MEDS: GABAPENTIN 100 MG CAP PO SCH (14:06)
--- NOTE | 2020-03-26 17:20 | Hospitalist Progress Note ---
Date of Service March 26, 2020 Assessment & Plan (1) Falls: Gris Avila is a 74 year old woman with PMH significant for Stage IV appendiceal carcinoid cancer who has had progressive weakness and increasing falls who also presents with worsening confusion in the last week. Weakness and falls/Acute encephalopathy-likely secondary to h/o lumbar spinal stenosis and radiculopathy causing pain and weakness and then was taking new prescription for oxycodone which caused confusion, she got dehydrated, UTI doing much better, strength improving after treatment of UTI, IV hydration and stopping opioids now she is s/p L1 decompression and L5 kyphoplasty for more pain control and stability continue PT/OT (2) Fracture, lumbar vertebra, compression: L5 vertebral compression fracture/Lumbar spinal stenosis with LLE radiculopathy-continues to have significant pain down the left and now some on the right lower extremity along with numbness and some mild weakness Worked with PT/OT -recommends rehab -Added lidocaine patch to the lower back -increased gabapentin to 300 mg po bid and added a 100 mg dose at 1400 -continue Tylenol 1000 mg p.o. scheduled every 8 hours for pain control and and effort to avoid opioids -added on Aleve 250mg po bid s/p L1 decompression and L5 kyphoplasty tolerated very well, more pain on 03/26 encourage PT/OT (3) Contusion of knee, right: secondary to fall, not causing an acute issue (4) Weakness: as above, secondary to lumbar spinal stenosis (5) Lumbar back pain: as above, secondary to L5 comp fx s/p kyphoplasty on 03/25 (6) Hypothyroidism: Hypothyroidism/thyroid nodule-seen on imaging of the CT cervical spine Slow growth of thyroid nodule from previous scan 12mm to 15 mm TSH normal-does not appear to be related to her current presentation but may warrant outpatient workup -Continue levothyroxine (7) History of DVT (deep vein thrombosis): resume Lovenox once Hb is stable (8) Depression: continue Effexor (9) Anxiety: continue Effexor (10) Appendiceal carcinoid tumor: Metastatic appendiceal carcinoid-with history of numerous surgeries for debulking and resection of tumors performed by surgeon in [place] -Follow-up as an outpatient No acute issues (11) Pancreatic insufficiency: Pancreatic insufficiency-secondary to partial resection of pancreas -Continue Creon (12) Anemia: With Fe def anemia here, hgb 9.9, with reactive thrombocytosis to Fe-def anemia -giving Venofer 300mg IV daily x 3 doses-last dose will need to be ordered on 03/25 Hb dropped to 8.2 from 9, likely represents acute blood loss anemia in post op setting transfusion ordered by Dr. Monterroso, tolerating well, check H/H in the morning (13) GERD (gastroesophageal reflux disease): GERD-stable, continue PPI (14) Spinal stenosis, lumbar region with neurogenic claudication: as above (15) Peripheral neuropathy: continue gabapentin (16) Complicated UTI (urinary tract infection): UTI-noted to have abnormal UA as an outpatient at the [facility]. Urine culture is now back today growing E. coli that is pansensitive -Received 2 days of IV ceftriaxone and have since converted to Keflex 500 mg p.o. twice daily for total of 7 days-last dose 03/25 -No further urinary retention (17) KELLY (acute kidney injury): KELLY-resolved, creatinine down to 1.0 from 1.5 Likely pre renal, secondary to poor p.o. intake Also with history of urinary retention which may have been contributing-continue to bladder scan and straight cath for PVR greater than 350 mL's (18) Abnormal chest xray: Pulmonary imaging findings New airspace opacity in lung apex on left, possible pleural effusion on left, Obtained chest CT to better evaluate concern for possible metastasis-with some motion artifact but nothing noted in that area -Also noted to have left jugular bulb dehiscence on imaging-I discussed with the on-call radiologist who confirmed this is unchanged from 2012 and therefore is not clinically significant (19) DVT prophylaxis: DVT PPx: SCD, likely resume Lovenox 03/27 if okay with surgery DIspo: PT/OT, working towards rehab DNR/DNI Admission and Anticipated Discharge Date Admission Date: March 18, 2020 Subjective patient doing well again today, a little more post op pain in the morning she is OOB in a chair, eating well, no dyspnea, no chest pain Hb dropped to 8.2, Dr. Monterroso ordered two units to be transfused, tolerating the transfusion well no fever/chills, no nausea, no headache BMP shows stable renal function, electrolytes stable Review of Systems Review of Systems: All systems reviewed & are unremarkable except as noted in Subjective Musculoskeletal: + back pain (lower) Physical Exam Constitutional: WD/WN, vitals as above Eyes: PERRL, conjunctivae normal, anicteric sclerae ENMT: external ear and nose normal, oropharynx normal Neck: trachea midline, no thyromegaly Respiratory: normal respiratory effort, lungs clear to auscultation Cardiovascular: RRR, no murmur, no edema Gastrointestinal (Abdomen): normal bowel sounds, soft, nontender, no h epatosplenomegaly Musculoskeletal: Head/Neck/Chest: normocephalic, head atraumatic and neck supple Spine: + limited thoraco-lumbar ROM (due to pain) Extremities: extremities normal to inspection and strength 5/5 throughout; no cyanosis, no clubbing and no petechiae Skin: no rashes, warm and dry Neurologic: patellar DTR's 2+ bilat, sensation intact and PERRL, EOMI, accommodation nl, no face palsy, no dysarthria Psychiatric: A+Ox3, euthymic affect Lymphatic: no cervical or axillary lymphadenopathy Results & Data Results & Data ([facility]) Vital Signs (Past 12 Hours) Vital Signs Temp Pulse Pulse Pulse Resp BP BP 03/26/20 16:00 36.9 C 74 16 114/68 03/26/20 15:43 36.6 C 88 18 119/76 03/26/20 14:35 36.6 C 88 18 119/76 03/26/20 13:35 36.9 C 79 16 118/69 03/26/20 13:07 37.0 C 90 16 130/78 03/26/20 13:05 37.1 C 88 18 139/87 03/26/20 12:35 36.8 C 87 18 134/84 03/26/20 12:18 36.8 C 74 16 139/79 03/26/20 12:05 36.8 C 72 16 124/72 03/26/20 11:33 36.9 C 74 16 113/73 03/26/20 10:31 36.8 C 80 16 116/66 03/26/20 10:02 36.6 C 88 16 123/67 03/26/20 09:30 36.7 C 76 16 124/71 03/26/20 09:01 36.7 C 82 16 133/76 03/26/20 08:46 36.5 C 71 16 114/72 03/26/20 08:28 36.8 C 76 18 107/65 03/26/20 07:20 36.9 C 86 16 118/67 Pulse Ox 03/26/20 16:00 91 03/26/20 15:43 94 03/26/20 14:35 94 03/26/20 13:35 95 03/26/20 13:07 93 03/26/20 13:05 94 03/26/20 12:35 03/26/20 12:18 03/26/20 12:05 03/26/20 11:33 93 03/26/20 10:31 95 03/26/20 10:02 94 03/26/20 09:30 94 03/26/20 09:01 92 03/26/20 08:46 94 03/26/20 08:28 03/26/20 07:20 96 Laboratory Results Laboratory Results - last 24 hr 03/24/20 03/26/20 03/26/20 06:00 05:54 05:54 WBC 20.44 H D RBC 3.08 L Hgb 8.2 L Hct 26.6 L MCV 86.4 MCH 26.6 MCHC 30.8 L RDW Std Deviation 52.1 H RDW Coeff of Gina 16.7 H Plt Count 497 H MPV 9.4 Immature Gran % (Auto) 0.5 Neut % (Auto) 82.3 Lymph % (Auto) 9.4 [place] % (Auto) 7.8 Eos % (Auto) 0.0 Baso % (Auto) 0.0 Neut # (Auto) 16.80 H Lymph # (Auto) 1.92 [place] # (Auto) 1.60 H Eos # (Auto) 0.00 Baso # (Auto) 0.01 Immature Gran # (Auto) 0.11 H Sodium 140 Potassium 4.6 Chloride 109 H Carbon Dioxide 26 Anion Gap 5.0 BUN 20 H Creatinine 1.04 Est Cr Clr Drug Dosing 45.1 Est GFR ( Amer) 60.4 Est GFR (Non-Af Amer) 52.1 BUN/Creatinine Ratio 19.5 Glucose 132 H Calcium 8.5 Blood Type O Positive Antibody Screen NEGATIVE Crossmatch See Detail Medications Administered Current Inpatient Medications Acetaminophen (Acetaminophen 500 Mg Tab) 1,000 mg PO Q8 JACINTA Stop: 04/18/20 21:59 Last Admin: 03/26/20 14:05 Dose: 1,000 mg Documented by: Acetaminophen (Acetaminophen 500 Mg Tab) 1,000 mg PO Q8H PRN PRN Reason: MILD Pain Scale 1,2,3 & Pre PT Stop: 04/24/20 11:54 Al Hydrox/Mg Hydrox/Simethicone (Aluminum/Magnesium Susp 30 Ml Udc) 30 ml PO Q6H PRN PRN Reason: Dyspepsia Stop: 04/24/20 11:54 Lipase/Protease/Amylase (Pancreaze (Lipase 10,500u)) 3 cap PO TIDM [facility] Stop: 04/18/20 07:59 Last Admin: 03/26/20 12:44 Dose: 3 cap Documented by: Bisacodyl (Bisacodyl 10 Mg Supp) 10 mg NH DAILY PRN PRN Reason: Constipation Stop: 04/24/20 11:54 Cyanocobalamin (Vitamin B-12) 2,500 mcg SL QAM [facility] Stop: 04/18/20 08:59 Last Admin: 03/26/20 08:42 Dose: 2,500 mcg Documented by: Diphenhydramine HCl (Diphenhydramine Hcl 25 Mg Cap) 25 mg PO Q6H PRN PRN Reason: Allergic Rhinitis/Insomnia Stop: 04/24/20 11:54 Famotidine (Famotidine 20 Mg Tab) 20 mg PO Q12H PRN PRN Reason: Dyspepsia Stop: 04/24/20 11:54 Gabapentin (Gabapentin 100 Mg Cap) 100 mg PO DAILY@1400 [facility] Stop: 04/21/20 13:59 Last Admin: 03/26/20 14:06 Dose: 100 mg Documented by: Gabapentin (Gabapentin 300 Mg Cap) 300 mg PO BID [facility] Stop: 04/21/20 20:59 Last Admin: 03/26/20 08:41 Dose: 300 mg Documented by: Hydrocortisone (Hydrocortisone 2.5%) 1 appln EXT BID PRN PRN Reason: REDNESS Stop: 04/18/20 08:59 Hydromorphone HCl (Hydromorphone Inj 0.5 Mg/0.5 Ml Syr) 0.5 mg IV Q3H PRN PRN Reason: MOD pain (scale 4-6) & Pre PT Stop: 04/08/20 11:54 Hydromorphone HCl (Hydromorphone Inj 1 Mg/Ml Syringe) 1 mg IV Q3H PRN PRN Reason: severe pain (scale 7-10) Stop: 04/08/20 11:54 Hydroxyzine HCl (Hydroxyzine Hcl 25 Mg Tab) 25 mg PO Q8H PRN PRN Reason: Anxiety Stop: 04/24/20 11:54 Lorazepam (Ativan) 0.5 mg in 1 mls @ 0.5 mls/min IV Q8H PRN PRN Reason: Sedation/Anxiety Stop: 04/24/20 11:54 Promethazine HCl 12.5 mg/ (Sodium Chloride) 50.5 mls @ 204 mls/hr IV Q6H PRN PRN Reason: Nausea &/or Vomiting Stop: 04/24/20 11:54 Sodium Chloride (Nss) 250 mls @ 15 mls/hr IV .[id number] PRN PRN Reason: For Transfusion Stop: 03/26/20 17:49 Influenza Virus Vaccine Quadrival (Do Not Administer Flu Vaccine) 1 ea N/A PRN PRN PRN Reason: Notification Stop: 04/24/20 11:54 Ketorolac Tromethamine (Acular 0.5%) 1 drops OP BID [facility] Stop: 04/18/20 08:59 Last Admin: 03/26/20 08:45 Dose: 1 drops Documented by: Lactobacillus Acidophilus (Floranex) 4 tab PO QAM [facility] Stop: 04/18/20 08:59 Last Admin: 03/26/20 08:44 Dose: 4 tab Documented by: Levothyroxine Sodium (Synthroid) 100 mcg PO DAILYBB [facility] Stop: 04/18/20 06:29 Last Admin: 03/26/20 05:56 Dose: 100 mcg Documented by: Lidocaine (Lidocaine 5% 1 Patch) 1 patch TD QAM [facility] Stop: 04/21/20 08:59 Last Admin: 03/26/20 08:52 Dose: Not Given Documented by: Lorazepam (Lorazepam 0.5 Mg Tab) 0.5 mg PO Q8H PRN PRN Reason: Sedation/Anxiety Stop: 04/24/20 11:54 Magnesium Hydroxide (Magnesium Hydroxide Susp 30 Ml Udc) 30 ml PO DAILY PRN PRN Reason: Constipation Stop: 04/24/20 11:54 Melatonin (Melatonin 3 Mg Tab) 3 mg PO HS PRN PRN Reason: Sleep Stop: 04/22/20 20:22 Last Admin: 03/25/20 20:31 Dose: 3 mg Documented by: Metoclopramide HCl (Metoclopramide Hcl Inj 5 Mg/Ml 2 Ml Vial) 10 mg IV Q6H PRN PRN Reason: Nausea &/or Vomiting Stop: 04/24/20 11:54 Miscellaneous (Remove Lidoderm Patch) 1 ea N/A DAILY@195 [facility] Stop: 04/19/20 19:58 Last Admin: 03/25/20 18:53 Dose: Not Given Documented by: Multivitamins/Minerals (Multivitamin W/ Minerals Tab) 1 tab PO DAILY [facility] Stop: 04/18/20 08:59 Last Admin: 03/26/20 08:43 Dose: 1 tab Documented by: Naloxone HCl (Naloxone Hcl 0.4 Mg/1 Ml Vial/Carp) 0.1 mg IV Q5M PRN; Protocol PRN Reason: Oversedation/Resp Depression Stop: 04/24/20 11:54 Ondansetron HCl (Zofran) 4 mg IV Q6H PRN PRN Reason: Nausea Stop: 04/18/20 00:59 Ondansetron HCl (Ondansetron Inj 2 Mg/Ml 2 Ml Vial) 4 mg IV Q6H PRN PRN Reason: Nausea &/or Vomiting Stop: 04/24/20 11:54 Ondansetron HCl (Ondansetron 4 Mg Od Tab) 4 mg PO Q6H PRN PRN Reason: Nausea Stop: 04/24/20 11:54 Pantoprazole Sodium (Protonix) 40 mg PO BID [facility] Stop: 04/18/20 08:59 Last Admin: 03/26/20 08:42 Dose: 40 mg Documented by: Pneumococcal Polyvalent Vaccine (Do Not Administer Pneumococcal Vaccine) 1 ea N/A PRN PRN PRN Reason: Notification Stop: 04/24/20 11:54 Polyethylene Glycol (Miralax Powder Packet) 17 gm PO DAILY PRN PRN Reason: Constipation Stop: 04/18/20 00:59 Polyethylene Glycol (Polyethylene (Miralax) 17 Gm Pack) 17 gm PO Q6 JACINTA Stop: 04/25/20 05:59 Last Admin: 03/26/20 11:47 Dose: 17 gm Documented by: Polysaccharide Iron Complex (Niferex-150 W/Vit C Cap) 150 mg PO QAM [facility] Stop: 04/18/20 08:59 Last Admin: 03/26/20 08:42 Dose: 150 mg Documented by: Prednisolone Acetate (Pred Forte 1%) 1 drops OP BID [facility] Stop: 04/18/20 08:59 Last Admin: 03/26/20 08:45 Dose: 1 drops Documented by: Senna/Docusate Sodium (Docusate Sodium/Senna 50/8.6mg Tab) 2 tab PO HS [facility] Stop: 04/24/20 20:59 Last Admin: 03/25/20 20:27 Dose: Not Given Documented by: Sodium Biphosphate/Sodium Phosphate (Sod Phosphate/Sod Biphosphate Enema 132 Ml Btl) 132 ml NH ONE PRN PRN Reason: Constipation Stop: 04/24/20 11:54 Tramadol HCl (Tramadol Hcl 50 Mg Tablet) 50 - 100 mg PO Q4H PRN PRN Reason: Moderate-Severe Pain & Pre PT Stop: 04/24/20 11:54 Last Admin: 03/26/20 11:48 Dose: 100 mg Documented by: Venlafaxine HCl (Effexor) 100 mg PO BID [facility] Stop: 04/18/20 00:59 Last Admin: 03/26/20 08:43 Dose: 100 mg Documented by: Vitamin D (Vitamin D3) 1,000 units PO QAM [facility] Stop: 04/18/20 08:59 Last Admin: 03/26/20 08:41 Dose: 1,000 units Documented by: PG Care Time/CCT Total # of Minutes Spent Total Time Spent with Patient: Total time spent is greater than 50% in coordin ation of care (as documented) at patient's floor/unit and/or counseling patient: Coding Level of Care Code 70365 Subseq Hosp Care Lvl 3 Diagnoses Falls W19.XXXA Encounter type: initial encounter Fracture, lumbar vertebra, compression S32.000A Contusion of knee, right S80.01XA Encounter type: initial encounter Weakness R53.1 Lumbar back pain M54.5 Hypothyroidism E03.9 History of DVT (deep vein thrombosis) Z86.718 Depression F32.9 Anxiety F41.9 Appendiceal carcinoid tumor D3A.020 Pancreatic insufficiency K86.89 Anemia D64.9 GERD (gastroesophageal reflux disease) K21.9 Esophagitis presence: esophagitis presence not specified Spinal stenosis, lumbar region with neurogenic claudication M48.062 Peripheral neuropathy G62.9 Complicated UTI (urinary tract infection) N39.0 KELLY (acute kidney injury) N17.9 Abnormal chest xray R93.89 DVT prophylaxis Z29.9 (1) GERD (gastroesophageal reflux disease) Esophagitis presence: esophagitis presence not specified Qualified Code(s): K21.9 - Gastro-esophageal reflux disease without esophagitis (2) Falls Encounter type: initial encounter Qualified Code(s): W19.XXXA - Unspecified fall, initial encounter (3) Contusion of knee, right Encounter type: initial encounter Qualified Code(s): S80.01XA - Contusion of right knee, initial encounter
[2020-03-26] MEDS: DOCUSATE SODIUM/SENNA 50/8.6MG TAB PO SCH (22:16)
[2020-03-27] MEDS: POLYETHYLENE (MIRALAX) 17 GM PACK PO SCH ×5 (00:16→23:19)
[2020-03-27] MEDS: TRAMADOL HCL 50 MG TABLET PO PRN ×2 (04:46→19:53)
[2020-03-27] MEDS: ACETAMINOPHEN 500 MG TAB PO SCH ×3 (05:47→22:30)
[2020-03-27] MEDS: LEVOTHYROXINE SODIUM 100 MCG TABLET PO SCH (05:48)
[2020-03-27 08:18] LABS: Hemoglobin 10.5 g/dL (12.0-16.0)
[2020-03-27] MEDS: PANCREAZE (LIPASE 10,500U) CAP PO SCH ×3 (08:50→16:56)
[2020-03-27] MEDS: LACTOBACILLUS ACIDOPHILUS (FLORANEX) TAB PO SCH (08:50)
[2020-03-27] MEDS: VENLAFAXINE HCL 50 MG TAB PO SCH ×2 (08:50→19:52)
[2020-03-27] MEDS: GABAPENTIN 300 MG CAP PO SCH ×2 (08:51→19:53)
[2020-03-27] MEDS: KETOROLAC 0.5% OP SOLN 5 ML BTL OP SCH ×2 (08:51→19:54)
[2020-03-27] MEDS: CEROVITE ADV FORMULA TAB PO SCH (08:51)
[2020-03-27] MEDS: LIDOCAINE 5% 1 PATCH TD SCH ×2 (08:51→08:58)
[2020-03-27] MEDS: CYANOCOBALAMIN (VITAMIN B-12) 2,500 MCG TAB.SUBL SL SCH (08:52)
[2020-03-27] MEDS: prednisoLONE acetate 1% OP SUSP 5 ML BTL OP SCH ×2 (08:52→19:54)
[2020-03-27] MEDS: PANTOprazole 40 MG TAB PO SCH ×2 (08:52→19:54)
[2020-03-27] MEDS: CHOLECALCIFEROL 1,000 UNITS 25 MCG TAB PO SCH (08:52)
[2020-03-27] MEDS: IRON POLYSACCHARIDE COMPLEX 150 MG CAPSULE PO SCH (08:52)
[2020-03-27] MEDS: GABAPENTIN 100 MG CAP PO SCH (13:33)
--- NOTE | 2020-03-27 14:32 | Orthopedic Progress Note ---
Date of Service March 27, 2020 Assessment & Plan (1) Spinal stenosis, lumbar region with neurogenic claudication: Admission and Anticipated Discharge Date Admission Date: March 18, 2020 This time we will continue physical therapy monitor her JULIANA output anticipate discharge home tomorrow. Subjective Patient's back pain is controlled leg symptoms are markedly improved. Physical Exam Physical Exam: Patient has good strength testing appears comfortable. Results & Data ([facility]) Vital Signs (Past 12 Hours) Vital Signs Temp Pulse Resp BP Pulse Ox 03/27/20 06:57 36.9 C 91 H 18 130/73 93
--- NOTE | 2020-03-27 16:57 | Hospitalist Progress Note ---
Date of Service March 27, 2020 Assessment & Plan (1) Falls: Gris Avila is a 74 year old woman with PMH significant for Stage IV appendiceal carcinoid cancer who has had progressive weakness and increasing falls who also presents with worsening confusion in the last week. Weakness and falls/Acute encephalopathy-likely secondary to h/o lumbar spinal stenosis and radiculopathy causing pain and weakness and then was taking new prescription for oxycodone which caused confusion, she got dehydrated, UTI doing much better, strength improving after treatment of UTI, IV hydration and stopping opioids now she is s/p L1 decompression and L5 kyphoplasty for more pain control and stability continue PT/OT, plan for [facility] tomorrow (2) Fracture, lumbar vertebra, compression: L5 vertebral compression fracture/Lumbar spinal stenosis with LLE radiculopathy-continues to have significant pain down the left and now some on the right lower extremity along with numbness and some mild weakness Worked with PT/OT -recommends rehab -Added lidocaine patch to the lower back -increased gabapentin to 300 mg po bid and added a 100 mg dose at 1400 -continue Tylenol 1000 mg p.o. scheduled every 8 hours for pain control and and effort to avoid opioids -added on Aleve 250mg po bid s/p L1 decompression and L5 kyphoplasty tolerated very well, less pain today encourage PT/OT, plan for rehab Dr. Monterroso plans to remove JULIANA drain tomorrow, he is okay with d/c tomorrow (3) Contusion of knee, right: secondary to fall, not causing an acute issue (4) Weakness: as above, secondary to lumbar spinal stenosis (5) Lumbar back pain: as above, secondary to L5 comp fx s/p kyphoplasty on 03/25 (6) Hypothyroidism: Hypothyroidism/thyroid nodule-seen on imaging of the CT cervical spine Slow growth of thyroid nodule from previous scan 12mm to 15 mm TSH normal-does not appear to be related to her current presentation but may warrant outpatient workup -Continue levothyroxine (7) History of DVT (deep vein thrombosis): resume Lovenox once Hb is stable (8) Depression: continue Effexor (9) Anxiety: continue Effexor (10) Appendiceal carcinoid tumor: Metastatic appendiceal carcinoid-with history of numerous surgeries for debulking and resection of tumors performed by surgeon in [place] -Follow-up as an outpatient No acute issues (11) Pancreatic insufficiency: Pancreatic insufficiency-secondary to partial resection of pancreas -Continue Creon (12) Anemia: With Fe def anemia here, hgb 9.9, with reactive thrombocytosis to Fe-def anemia -giving Venofer 300mg IV daily x 3 doses-last dose will need to be ordered on 03/25 Hb dropped to 8.2 from 9, likely represents acute blood loss anemia in post op setting transfusion ordered by Dr. Monterroso, tolerating well, H/H -- 10.5 today repeat H/H tomorrow (13) GERD (gastroesophageal reflux disease): GERD-stable, continue PPI (14) Spinal stenosis, lumbar region with neurogenic claudication: as above (15) Peripheral neuropathy: continue gabapentin (16) Complicated UTI (urinary tract infection): UTI-noted to have abnormal UA as an outpatient at the [facility] clinic. Urine culture is now back today growing E. coli that is pansensitive -Received 2 days of IV ceftriaxone and have since converted to Keflex 500 mg p.o. twice daily for total of 7 days-last dose 03/25 -No further urinary retention no fever, UTI is completely treated (17) KELLY (acute kidney injury): KELLY-resolved, creatinine down to 1.0 from 1.5 Likely pre renal, secondary to poor p.o. intake Also with history of urinary retention which may have been contributing-continue to bladder scan and straight cath for PVR greater than 350 mL's (18) Abnormal chest xray: Pulmonary imaging findings New airspace opacity in lung apex on left, possible pleural effusion on left, Obtained chest CT to better evaluate concern for possible metastasis-with some motion artifact but nothing noted in that area -Also noted to have left jugular bulb dehiscence on imaging-I discussed with the on-call radiologist who confirmed this is unchanged from 2012 and therefore is not clinically significant (19) DVT prophylaxis: DVT PPx: SCD, likely resume Lovenox DIspo: PT/OT, working towards rehab DNR/DNI Admission and Anticipated Discharge Date Admission Date: March 18, 2020 Subjective patient continues to recover quite well from spine surgery sitting up in her chair d/w CM, should be accepted to [facility] tomorrow asked Dr. Monterroso if he is okay with discharge tomorrow, he agrees, will remove JULIANA drain tomorrow reviewed labs, Hb is stable at 10 after transfusion yesterday eating well, no chest pain, no dyspnea, no cough she is passing a lot of flatus, no BM yet but she feels like it is coming soon Review of Systems Review of Systems: All systems reviewed & are unremarkable except as noted in Subjective Constitutional: no fever, no chills, no fatigue, no malaise and no weakness Respiratory: no cough and no dyspnea Cardiovascular: no chest pain and no edema Gastrointestinal: + constipation; no abdominal pain, no nausea, no vomiting and no diarrhea/loose stools Musculoskeletal: + back pain Physical Exam Constitutional: WD/WN, vitals as above Eyes: PERRL, conjunctivae normal, anicteric sclerae ENMT: external ear and nose normal, oropharynx normal Neck: trachea midline, no thyromegaly Respiratory: normal respiratory effort, lungs clear to auscultation Cardiovascular: RRR, no murmur, no edema Gastrointestinal (Abdomen): normal bowel sounds, soft, nontender, no hepatosplenomegaly Musculoskeletal: Head/Neck/Chest: normocephalic, head atraumatic and neck supple Spine: + limited thoraco-lumbar ROM (due to pain) Extremities: extremities normal to inspection and strength 5/5 throughout; no cyanosis, no clubbing and no petechiae Skin: no rashes, warm and dry Neurologic: patellar DTR's 2+ bilat, sensation intact and PERRL, EOMI, accommodation nl, no face palsy, no dysarthria Psychiatric: A+Ox3, euthymic affect Lymphatic: no cervical or axillary lymphadenopathy Results & Data Results & Data ([facility]) Vital Signs (Past 12 Hours) Vital Signs Temp Pulse Resp BP Pulse Ox 03/27/20 15:36 37.1 C 71 21 146/73 H 97 03/27/20 06:57 36.9 C 91 H 18 130/73 93 Laboratory Results Laboratory Results - last 24 hr 03/27/20 08:01 Hgb 10.5 L Hct 33.0 L Medications Administered Current Inpatient Medications Acetaminophen (Acetaminophen 500 Mg Tab) 1,000 mg PO Q8 JACINTA Stop: 04/18/20 21:59 Last Admin: 03/27/20 13:32 Dose: 1,000 mg Documented by: Acetaminophen (Acetaminophen 500 Mg Tab) 1,000 mg PO Q8H PRN PRN Reason: MILD Pain Scale 1,2,3 & Pre PT Stop: 04/24/20 11:54 Al Hydrox/Mg Hydrox/Simethicone (Aluminum/Magnesium Susp 30 Ml Udc) 30 ml PO Q6H PRN PRN Reason: Dyspepsia Stop: 04/24/20 11:54 Lipase/Protease/Amylase (Pancreaze (Lipase 10,500u)) 3 cap PO TIDM [facility] Stop: 04/18/20 07:59 Last Admin: 03/27/20 11:35 Dose: 3 cap Documented by: Bisacodyl (Bisacodyl 10 Mg Supp) 10 mg OK DAILY PRN PRN Reason: Constipation Stop: 04/24/20 11:54 Cyanocobalamin (Vitamin B-12) 2,500 mcg SL QAM [facility] Stop: 04/18/20 08:59 Last Admin: 03/27/20 08:52 Dose: 2,500 mcg Documented by: Diphenhydramine HCl (Diphenhydramine Hcl 25 Mg Cap) 25 mg PO Q6H PRN PRN Reason: Allergic Rhinitis/Insomnia Stop: 04/24/20 11:54 Famotidine (Famotidine 20 Mg Tab) 20 mg PO Q12H PRN PRN Reason: Dyspepsia Stop: 04/24/20 11:54 Gabapentin (Gabapentin 100 Mg Cap) 100 mg PO DAILY@1400 [facility] Stop: 04/21/20 13:59 Last Admin: 03/27/20 13:33 Dose: 100 mg Documented by: Gabapentin (Gabapentin 300 Mg Cap) 300 mg PO BID [facility] Stop: 04/21/20 20:59 Last Admin: 03/27/20 08:51 Dose: 300 mg Documented by: Hydrocortisone (Hydrocortisone 2.5%) 1 appln EXT BID PRN PRN Reason: REDNESS Stop: 04/18/20 08:59 Hydromorphone HCl (Hydromorphone Inj 0.5 Mg/0.5 Ml Syr) 0.5 mg IV Q3H PRN PRN Reason: MOD pain (scale 4-6) & Pre PT Stop: 04/08/20 11:54 Hydromorphone HCl (Hydromorphone Inj 1 Mg/Ml Syringe) 1 mg IV Q3H PRN PRN Reason: severe pain (scale 7-10) Stop: 04/08/20 11:54 Hydroxyzine HCl (Hydroxyzine Hcl 25 Mg Tab) 25 mg PO Q8H PRN PRN Reason: Anxiety Stop: 04/24/20 11:54 Lorazepam (Ativan) 0.5 mg in 1 mls @ 0.5 mls/min IV Q8H PRN PRN Reason: Sedation/Anxiety Stop: 04/24/20 11:54 Promethazine HCl 12.5 mg/ (Sodium Chloride) 50.5 mls @ 204 mls/hr IV Q6H PRN PRN Reason: Nausea &/or Vomiting Stop: 04/24/20 11:54 Influenza Virus Vaccine Quadrival (Do Not Administer Flu Vaccine) 1 ea N/A PRN PRN PRN Reason: Notification Stop: 04/24/20 11:54 Ketorolac Tromethamine (Acular 0.5%) 1 drops OP BID JACINTA Stop: 04/18/20 08:59 Last Admin: 03/27/20 08:51 Dose: 1 drops Documented by: Lactobacillus Acidophilus (Floranex) 4 tab PO QAM JACINTA Stop: 04/18/20 08:59 Last Admin: 03/27/20 08:50 Dose: 4 tab Documented by: Levothyroxine Sodium (Synthroid) 100 mcg PO DAILYBB JACINTA Stop: 04/18/20 06:29 Last Admin: 03/27/20 05:48 Dose: 100 mcg Documented by: Lidocaine (Lidocaine 5% 1 Patch) 1 patch TD QAM JACINTA Stop: 04/21/20 08:59 Last Admin: 03/27/20 08:58 Dose: Not Given Documented by: Lorazepam (Lorazepam 0.5 Mg Tab) 0.5 mg PO Q8H PRN PRN Reason: Sedation/Anxiety Stop: 04/24/20 11:54 Magnesium Hydroxide (Magnesium Hydroxide Susp 30 Ml Udc) 30 ml PO DAILY PRN PRN Reason: Constipation Stop: 04/24/20 11:54 Melatonin (Melatonin 3 Mg Tab) 3 mg PO HS PRN PRN Reason: Sleep Stop: 04/22/20 20:22 Last Admin: 03/25/20 20:31 Dose: 3 mg Documented by: Metoclopramide HCl (Metoclopramide Hcl Inj 5 Mg/Ml 2 Ml Vial) 10 mg IV Q6H PRN PRN Reason: Nausea &/or Vomiting Stop: 04/24/20 11:54 Miscellaneous (Remove Lidoderm Patch) 1 ea N/A DAILY@1958 [facility] Stop: 04/19/20 19:58 Last Admin: 03/26/20 18:41 Dose: 1 ea Documented by: Multivitamins/Minerals (Multivitamin W/ Minerals Tab) 1 tab PO DAILY JACINTA Stop: 04/18/20 08:59 Last Admin: 03/27/20 08:51 Dose: 1 tab Documented by: Naloxone HCl (Naloxone Hcl 0.4 Mg/1 Ml Vial/Carp) 0.1 mg IV Q5M PRN; Protocol PRN Reason: Oversedation/Resp Depression Stop: 04/24/20 11:54 Ondansetron HCl (Zofran) 4 mg IV Q6H PRN PRN Reason: Nausea Stop: 04/18/20 00:59 Ondansetron HCl (Ondansetron Inj 2 Mg/Ml 2 Ml Vial) 4 mg IV Q6H PRN PRN Reason: Nausea &/or Vomiting Stop: 04/24/20 11:54 Ondansetron HCl (Ondansetron 4 Mg Od Tab) 4 mg PO Q6H PRN PRN Reason: Nausea Stop: 04/24/20 11:54 Pantoprazole Sodium (Protonix) 40 mg PO BID [facility] Stop: 04/18/20 08:59 Last Admin: 03/27/20 08:52 Dose: 40 mg Documented by: Pneumococcal Polyvalent Vaccine (Do Not Administer Pneumococcal Vaccine) 1 ea N/A PRN PRN PRN Reason: Notification Stop: 04/24/20 11:54 Polyethylene Glycol (Miralax Powder Packet) 17 gm PO DAILY PRN PRN Reason: Constipation Stop: 04/18/20 00:59 Polyethylene Glycol (Polyethylene (Miralax) 17 Gm Pack) 17 gm PO Q6 JACINTA Stop: 04/25/20 05:59 Last Admin: 03/27/20 11:43 Dose: 17 gm Documented by: Polysaccharide Iron Complex (Niferex-150 W/Vit C Cap) 150 mg PO QAM JACINTA Stop: 04/18/20 08:59 Last Admin: 03/27/20 08:52 Dose: 150 mg Documented by: Prednisolone Acetate (Pred Forte 1%) 1 drops OP BID JACINTA Stop: 04/18/20 08:59 Last Admin: 03/27/20 08:52 Dose: 1 drops Documented by: Senna/Docusate Sodium (Docusate Sodium/Senna 50/8.6mg Tab) 2 tab PO HS JACINTA Stop: 04/24/20 20:59 Last Admin: 03/26/20 22:16 Dose: 2 tab Documented by: Sodium Biphosphate/Sodium Phosphate (Sod Phosphate/Sod Biphosphate Enema 132 Ml Btl) 132 ml OK ONE PRN PRN Reason: Constipation Stop: 04/24/20 11:54 Tramadol HCl (Tramadol Hcl 50 Mg Tablet) 50 - 100 mg PO Q4H PRN PRN Reason: Moderate-Severe Pain & Pre PT Stop: 04/24/20 11:54 Last Admin: 03/27/20 04:46 Dose: 100 mg Documented by: Venlafaxine HCl (Effexor) 100 mg PO BID JACINTA Stop: 04/18/20 00:59 Last Admin: 03/27/20 08:50 Dose: 100 mg Documented by: Vitamin D (Vitamin D3) 1,000 units PO QAM JACINTA Stop: 04/18/20 08:59 Last Admin: 03/27/20 08:52 Dose: 1,000 units Documented by: PG Care Time/CCT Total # of Minutes Spent Total Time Spent with Patient: Total time spent is greater than 50% in coordination of care (as documented) at patient's floor/unit and/or counseling patient: Coding Level of Care Code 31242 Subseq Hosp Care Lvl 2 Diagnoses Falls W19.XXXA Encounter type: initial encounter Fracture, lumbar vertebra, compression S32.000A Contusion of knee, right S80.01XA Encounter type: initial encounter Weakness R53.1 Lumbar back pain M54.5 Hypothyroidism E03.9 History of DVT (deep vein thrombosis) Z86.718 Depression F32.9 Anxiety F41.9 Appendiceal carcinoid tumor D3A.020 Pancreatic insufficiency K86.89 Anemia D64.9 GERD (gastroesophageal reflux disease) K21.9 Esophagitis presence: esophagitis presence not specified Spinal stenosis, lumbar region with neurogenic claudication M48.062 Peripheral neuropathy G62.9 Complicated UTI (urinary tract infection) N39.0 KELLY (acute kidney injury) N17.9 Abnormal chest xray R93.89 DVT prophylaxis Z29.9 (1) GERD (gastroesophageal reflux disease) Esophagitis presence: esophagitis presence not specified Qualified Code(s): K21.9 - Gastro-esophageal reflux disease without esophagitis (2) Falls Encounter type: initial encounter Qualified Code(s): W19.XXXA - Unspecified fall, initial encounter (3) Contusion of knee, right Encounter type: initial encounter Qualified Code(s): S80.01XA - Contusion of right knee, initial encounter
[2020-03-27] MEDS: DOCUSATE SODIUM/SENNA 50/8.6MG TAB PO SCH (19:52)
[2020-03-28] MEDS: TRAMADOL HCL 50 MG TABLET PO PRN ×2 (01:08→16:45)
[2020-03-28] MEDS: POLYETHYLENE (MIRALAX) 17 GM PACK PO SCH ×2 (05:03→11:17)
[2020-03-28] MEDS: LEVOTHYROXINE SODIUM 100 MCG TABLET PO SCH (06:24)
[2020-03-28] MEDS: ACETAMINOPHEN 500 MG TAB PO SCH ×3 (06:24→22:22)
[2020-03-28 06:25] LABS: Hematocrit (blood only) 34.1 % (37-47); Hemoglobin 10.8 g/dL (12.0-16.0)
[2020-03-28 06:58] LABS: Calcium 9.1 mg/dl (8.5-10.1); Est GFR (African American) 61.9; Est GFR (Non-African American) 53.4; Potassium 4.5 mmol/L (3.5-5.1)
[2020-03-28] MEDS: CYANOCOBALAMIN (VITAMIN B-12) 2,500 MCG TAB.SUBL SL SCH (07:40)
[2020-03-28] MEDS: CEROVITE ADV FORMULA TAB PO SCH (07:41)
[2020-03-28] MEDS: LACTOBACILLUS ACIDOPHILUS (FLORANEX) TAB PO SCH (07:41)
[2020-03-28] MEDS: CHOLECALCIFEROL 1,000 UNITS 25 MCG TAB PO SCH (07:41)
[2020-03-28] MEDS: VENLAFAXINE HCL 50 MG TAB PO SCH ×2 (07:42→20:35)
[2020-03-28] MEDS: PANTOprazole 40 MG TAB PO SCH ×2 (07:42→20:35)
[2020-03-28] MEDS: ENOXAPARIN INJ 40 MG/0.4 ML SYR SQ SCH (07:42)
[2020-03-28] MEDS: GABAPENTIN 300 MG CAP PO SCH ×2 (07:42→20:35)
[2020-03-28] MEDS: IRON POLYSACCHARIDE COMPLEX 150 MG CAPSULE PO SCH (07:42)
[2020-03-28] MEDS: LIDOCAINE 5% 1 PATCH TD SCH (07:43)
[2020-03-28] MEDS: KETOROLAC 0.5% OP SOLN 5 ML BTL OP SCH ×2 (07:43→20:35)
[2020-03-28] MEDS: prednisoLONE acetate 1% OP SUSP 5 ML BTL OP SCH ×2 (07:44→20:38)
--- NOTE | 2020-03-28 08:55 | Orthopedic Progress Note ---
Date of Service March 28, 2020 Assessment & Plan (1) Spinal stenosis, lumbar region with neurogenic claudication: Admission and Anticipated Discharge Date Admission Date: March 18, 2020 This time I will give her a small dose of Decadron to help with inflammation. Continue with physical therapy discontinue her drain today. She may require an additional day in the hospital for therapy. Subjective Patient is complaining of some anterior thigh pain that began yesterday. Did bother her a bit throughout the evening this morning it somewhat improved. She has no posterior thigh radicular complaints at this time. Back pain is controlled. Physical Exam Physical Exam: On exam she is in bed. She does have good reasonable strength testing lower extremities. Results & Data ([facility] [place]) Vital Signs (Past 12 Hours) Vital Signs Temp Pulse Pulse Resp BP Pulse Ox 03/28/20 07:27 36.7 C 69 16 145/82 H 92 03/27/20 22:59 37.2 C 74 16 127/80 92
[2020-03-28] MEDS ORDERED: DEXAMETHASONE SOD PHOSPHATE 8 MG in SYRINGE 0 ML IV SCH (09:00)
[2020-03-28] MEDS: PANCREAZE (LIPASE 10,500U) CAP PO SCH ×3 (09:06→17:30)
[2020-03-28] MEDS: GABAPENTIN 100 MG CAP PO SCH (13:29)
[2020-03-28] MEDS ORDERED: Nursing to Pharmacy Communication SCH (15:45)
--- NOTE | 2020-03-28 16:03 | Hospitalist Progress Note ---
Date of Service March 28, 2020 Assessment & Plan (1) Falls: Gris Avila is a 74 year old woman with PMH significant for Stage IV appendiceal carcinoid cancer who has had progressive weakness and increasing falls who also presents with worsening confusion in the last week. Weakness and falls/Acute encephalopathy-likely secondary to h/o lumbar spinal stenosis and radiculopathy causing pain and weakness and then was taking new prescription for oxycodone which caused confusion, she got dehydrated, UTI doing much better, strength improving after treatment of UTI, IV hydration and stopping opioids now she is s/p L1 decompression and L5 kyphoplasty for more pain control and stability continue PT/OT, plan for rehab tomorrow if approved (2) Fracture, lumbar vertebra, compression: L5 vertebral compression fracture/Lumbar spinal stenosis with LLE radiculopathy-continues to have significant pain down the left and now some on the right lower extremity along with numbness and some mild weakness Worked with PT/OT -recommends rehab -Added lidocaine patch to the lower back -increased gabapentin to 300 mg po bid and added a 100 mg dose at 1400 -continue Tylenol 1000 mg p.o. scheduled every 8 hours for pain control and and effort to avoid opioids -added on Aleve 250mg po bid s/p L1 decompression and L5 kyphoplasty tolerated very well, less pain each day, more mobility with therapy encourage PT/OT, plan for rehab Dr. Monterroso removed JULIANA drain, he is okay for discharge from surgical standpoint (3) Contusion of knee, right: secondary to fall, not causing an acute issue (4) Weakness: as above, secondary to lumbar spinal stenosis (5) Lumbar back pain: as above, secondary to L5 comp fx s/p kyphoplasty on 03/25 (6) Hypothyroidism: Hypothyroidism/thyroid nodule-seen on imaging of the CT cervical spine Slow growth of thyroid nodule from previous scan 12mm to 15 mm TSH normal-does not appear to be related to her current presentation but may warrant outpatient workup -Continue levothyroxine (7) History of DVT (deep vein thrombosis): resume Lovenox once Hb is stable (8) Depression: continue Effexor (9) Anxiety: continue Effexor (10) Appendiceal carcinoid tumor: Metastatic appendiceal carcinoid-with history of numerous surgeries for debulking and resection of tumors performed by surgeon in [place] -Follow-up as an outpatient No acute issues (11) Pancreatic insufficiency: Pancreatic insufficiency-secondary to partial resection of pancreas -Continue Creon (12) Anemia: With Fe def anemia here, hgb 9.9, with reactive thrombocytosis to Fe-def anemia -giving Venofer 300mg IV daily x 3 doses-last dose will need to be ordered on 03/25 Hb dropped to 8.2 from 9, likely represents acute blood loss anemia in post op setting transfusion ordered by Dr. Monterroso, tolerating well, H/H -- 10.5 today repeat H/H tomorrow (13) GERD (gastroesophageal reflux disease): GERD-stable, continue PPI (14) Spinal stenosis, lumbar region with neurogenic claudication: as above (15) Peripheral neuropathy: continue gabapentin (16) Complicated UTI (urinary tract infection): UTI-noted to have abnormal UA as an outpatient at the [facility] clinic. Urine culture is now back today growing E. coli that is pansensitive -Received 2 days of IV ceftriaxone and have since converted to Keflex 500 mg p.o. twice daily for total of 7 days-last dose 03/25 -No further urinary retention no fever, UTI is completely treated (17) KELLY (acute kidney injury): KELLY-resolved, creatinine down to 1.0 from 1.5 Likely pre renal, secondary to poor p.o. intake Also with history of urinary retention which may have been contributing-continue to bladder scan and straight cath for PVR greater than 350 mL's (18) Abnormal chest xray: Pulmonary imaging findings New airspace opacity in lung apex on left, possible pleural effusion on left, Obtained chest CT to better evaluate concern for possible metastasis-with some motion artifact but nothing noted in that area -Also noted to have left jugular bulb dehiscence on imaging-I discussed with the on-call radiologist who confirmed this is unchanged from 2012 and therefore is not clinically significant (19) DVT prophylaxis: DVT PPx: SCD, likely resume Lovenox DIspo: PT/OT, working towards rehab DNR/DNI Admission and Anticipated Discharge Date Admission Date: March 18, 2020 Subjective patient doing great JULIANA removed today she is eating well, pain is moderate, definitely not sever labs reviewed, stable spoke with CM, they will apply for insurance auth Review of Systems Review of Systems: All systems reviewed & are unremarkable except as noted in Subjective Musculoskeletal: + back pain Physical Exam Constitutional: WD/WN, vitals as above Eyes: PERRL, conjunctivae normal, anicteric sclerae ENMT: external ear and nose normal, oropharynx normal Neck: trachea midline, no thyromegaly Respiratory: normal respiratory effort, lungs clear to auscultation Cardiovascular: RRR, no murmur, no edema Gastrointestinal (Abdomen): normal bowel sounds, soft, nontender, no hepatosplenomegaly Musculoskeletal: Head/Neck/Chest: normocephalic, head atraumatic and neck supple Spine: + limited thoraco-lumbar ROM (due to pain) Extremities: extremities normal to inspection and strength 5/5 throughout; no cyanosis, no clubbing and no petechiae Skin: no rashes, warm and dry Neurologic: patellar DTR's 2+ bilat, sensation intact and PERRL, EOMI, accommodation nl, no face palsy, no dysarthria Psychiatric: A+Ox3, euthymic affect Lymphatic: no cervical or axillary lymphadenopathy Results & Data Results & Data ([facility]) Vital Signs (Past 12 Hours) Vital Signs Temp Pulse Resp BP Pulse Ox 03/28/20 15:59 36.7 C 76 16 144/81 H 94 03/28/20 07:27 36.7 C 69 16 145/82 H 92 Laboratory Results Laboratory Results - last 24 hr 03/28/20 03/28/20 06:00 06:00 Hgb 10.8 L Hct 34.1 L Sodium 136 Potassium 4.5 Chloride 104 Carbon Dioxide 26 Anion Gap 5.0 BUN 22 H Creatinine 1.02 Est Cr Clr Drug Dosing 46.0 Est GFR ( Amer) 61.9 Est GFR (Non-Af Amer) 53.4 BUN/Creatinine Ratio 22.0 H Glucose 112 H Calcium 9.1 Medications Administered Current Inpatient Medications Acetaminophen (Acetaminophen 500 Mg Tab) 1,000 mg PO Q8 JACINTA Stop: 04/18/20 21:59 Last Admin: 03/28/20 13:29 Dose: 1,000 mg Documented by: Acetaminophen (Acetaminophen 500 Mg Tab) 1,000 mg PO Q8H PRN PRN Reason: MILD Pain Scale 1,2,3 & Pre PT Stop: 04/24/20 11:54 Al Hydrox/Mg Hydrox/Simethicone (Aluminum/Magnesium Susp 30 Ml Udc) 30 ml PO Q6H PRN PRN Reason: Dyspepsia Stop: 04/24/20 11:54 Lipase/Protease/Amylase (Pancreaze (Lipase 10,500u)) 3 cap PO TIDM [facility] Stop: 04/18/20 07:59 Last Admin: 03/28/20 12:14 Dose: 3 cap Documented by: Bisacodyl (Bisacodyl 10 Mg Supp) 10 mg IL DAILY PRN PRN Reason: Constipation Stop: 04/24/20 11:54 Cyanocobalamin (Vitamin B-12) 2,500 mcg SL [facility] [place] Stop: 04/18/20 08:59 Last Admin: 03/28/20 07:40 Dose: 2,500 mcg Documented by: Diphenhydramine HCl (Diphenhydramine Hcl 25 Mg Cap) 25 mg PO Q6H PRN PRN Reason: Allergic Rhinitis/Insomnia Stop: 04/24/20 11:54 Enoxaparin Sodium (Enoxaparin Inj 40 Mg/0.4 Ml Syr) 40 mg SQ [facility] [place] Stop: 04/27/20 08:59 Last Admin: 03/28/20 07:42 Dose: 40 mg Documented by: Famotidine (Famotidine 20 Mg Tab) 20 mg PO Q12H PRN PRN Reason: Dyspepsia Stop: 04/24/20 11:54 Gabapentin (Gabapentin 100 Mg Cap) 100 mg PO DAILY@1400 [facility] Stop: 04/21/20 13:59 Last Admin: 03/28/20 13:29 Dose: 100 mg Documented by: Gabapentin (Gabapentin 300 Mg Cap) 300 mg PO BID [facility] Stop: 04/21/20 20:59 Last Admin: 03/28/20 07:42 Dose: 300 mg Documented by: Hydrocortisone (Hydrocortisone 2.5%) 1 appln EXT BID PRN PRN Reason: REDNESS Stop: 04/18/20 08:59 Hydromorphone HCl (Hydromorphone Inj 0.5 Mg/0.5 Ml Syr) 0.5 mg IV Q3H PRN PRN Reason: MOD pain (scale 4-6) & Pre PT Stop: 04/08/20 11:54 Hydromorphone HCl (Hydromorphone Inj 1 Mg/Ml Syringe) 1 mg IV Q3H PRN PRN Reason: severe pain (scale 7-10) Stop: 04/08/20 11:54 Hydroxyzine HCl (Hydroxyzine Hcl 25 Mg Tab) 25 mg PO Q8H PRN PRN Reason: Anxiety Stop: 04/24/20 11:54 Lorazepam (Ativan) 0.5 mg in 1 mls @ 0.5 mls/min IV Q8H PRN PRN Reason: Sedation/Anxiety Stop: 04/24/20 11:54 Promethazine HCl 12.5 mg/ (Sodium Chloride) 50.5 mls @ 204 mls/hr IV Q6H PRN PRN Reason: Nausea &/or Vomiting Stop: 04/24/20 11:54 Influenza Virus Vaccine Quadrival (Do Not Administer Flu Vaccine) 1 ea N/A PRN PRN PRN Reason: Notification Stop: 04/24/20 11:54 Ketorolac Tromethamine (Acular 0.5%) 1 drops OP BID [facility] Stop: 04/18/20 08:59 Last Admin: 03/28/20 07:43 Dose: 1 drops Documented by: Lactobacillus Acidophilus (Floranex) 4 tab PO QAM [facility] Stop: 04/18/20 08:59 Last Admin: 03/28/20 07:41 Dose: 4 tab Documented by: Levothyroxine Sodium (Synthroid) 100 mcg PO DAILYBB JACINTA Stop: 04/18/20 06:29 Last Admin: 03/28/20 06:24 Dose: 100 mcg Documented by: Lidocaine (Lidocaine 5% 1 Patch) 1 patch TD QAM [facility] Stop: 04/21/20 08:59 Last Admin: 03/28/20 07:43 Dose: Not Given Documented by: Lorazepam (Lorazepam 0.5 Mg Tab) 0.5 mg PO Q8H PRN PRN Reason: Sedation/Anxiety Stop: 04/24/20 11:54 Magnesium Hydroxide (Magnesium Hydroxide Susp 30 Ml Udc) 30 ml PO DAILY PRN PRN Reason: Constipation Stop: 04/24/20 11:54 Last Admin: 03/28/20 07:52 Dose: 30 ml Documented by: Melatonin (Melatonin 3 Mg Tab) 3 mg PO HS PRN PRN Reason: Sleep Stop: 04/22/20 20:22 Last Admin: 03/25/20 20:31 Dose: 3 mg Documented by: Metoclopramide HCl (Metoclopramide Hcl Inj 5 Mg/Ml 2 Ml Vial) 10 mg IV Q6H PRN PRN Reason: Nausea &/or Vomiting Stop: 04/24/20 11:54 Miscellaneous (Remove Lidoderm Patch) 1 ea N/A DAILY@1959 [facility] Stop: 04/19/20 19:58 Last Admin: 03/27/20 16:58 Dose: Not Given Documented by: Multivitamins/Minerals (Multivitamin W/ Minerals Tab) 1 tab PO DAILY JACINTA Stop: 04/18/20 08:59 Last Admin: 03/28/20 07:41 Dose: 1 tab Documented by: Naloxone HCl (Naloxone Hcl 0.4 Mg/1 Ml Vial/Carp) 0.1 mg IV Q5M PRN; Protocol PRN Reason: Oversedation/Resp Depression Stop: 04/24/20 11:54 Ondansetron HCl (Zofran) 4 mg IV Q6H PRN PRN Reason: Nausea Stop: 04/18/20 00:59 Ondansetron HCl (Ondansetron Inj 2 Mg/Ml 2 Ml Vial) 4 mg IV Q6H PRN PRN Reason: Nausea &/or Vomiting Stop: 04/24/20 11:54 Ondansetron HCl (Ondansetron 4 Mg Od Tab) 4 mg PO Q6H PRN PRN Reason: Nausea Stop: 04/24/20 11:54 Pantoprazole Sodium (Protonix) 40 mg PO BID [facility] Stop: 04/18/20 08:59 Last Admin: 03/28/20 07:42 Dose: 40 mg Documented by: Pneumococcal Polyvalent Vaccine (Do Not Administer Pneumococcal Vaccine) 1 ea N/A PRN PRN PRN Reason: Notification Stop: 04/24/20 11:54 Polyethylene Glycol (Miralax Powder Packet) 17 gm PO DAILY PRN PRN Reason: Constipation Stop: 04/18/20 00:59 Polysaccharide Iron Complex (Niferex-150 W/Vit C Cap) 150 mg PO QAM JACINTA Stop: 04/18/20 08:59 Last Admin: 03/28/20 07:42 Dose: 150 mg Documented by: Prednisolone Acetate (Pred Forte 1%) 1 drops OP BID [facility] Stop: 04/18/20 08:59 Last Admin: 03/28/20 07:44 Dose: 1 drops Documented by: Senna/Docusate Sodium (Docusate Sodium/Senna 50/8.6mg Tab) 2 tab PO HS [facility] Stop: 04/24/20 20:59 Last Admin: 03/27/20 19:52 Dose: 2 tab Documented by: Sodium Biphosphate/Sodium Phosphate (Sod Phosphate/Sod Biphosphate Enema 132 Ml Btl) 132 ml IL ONE PRN PRN Reason: Constipation Stop: 04/24/20 11:54 Tramadol HCl (Tramadol Hcl 50 Mg Tablet) 50 - 100 mg PO Q4H PRN PRN Reason: Moderate-Severe Pain & Pre PT Stop: 04/24/20 11:54 Last Admin: 03/28/20 01:08 Dose: 100 mg Documented by: Venlafaxine HCl (Effexor) 100 mg PO BID [facility] Stop: 04/18/20 00:59 Last Admin: 03/28/20 07:42 Dose: 100 mg Documented by: Vitamin D (Vitamin D3) 1,000 units PO QAM [facility] Stop: 04/18/20 08:59 Last Admin: 03/28/20 07:41 Dose: 1,000 units Documented by: PG Care Time/CCT Total # of Minutes Spent Total Time Spent with Patient: Total time spent is greater than 50% in coordination of care (as documented) at patient's floor/unit and/or counseling patient: Coding Level of Care Code 55842 Subseq Hosp Care Lvl 2 Diagnoses Falls W19.XXXA Encounter type: initial encounter Fracture, lumbar vertebra, compression S32.000A Contusion of knee, right S80.01XA Encounter type: initial encounter Weakness R53.1 Lumbar back pain M54.5 Hypothyroidism E03.9 History of DVT (deep vein thrombosis) Z86.718 Depression F32.9 Anxiety F41.9 Appendiceal carcinoid tumor D3A.020 Pancreatic insufficiency K86.89 Anemia D64.9 GERD (gastroesophageal reflux disease) K21.9 Esophagitis presence: esophagitis presence not specified Spinal stenosis, lumbar region with neurogenic claudication M48.062 Peripheral neuropathy G62.9 Complicated UTI (urinary tract infection) N39.0 KELLY (acute kidney injury) N17.9 Abnormal chest xray R93.89 DVT prophylaxis Z29.9 (1) GERD (gastroesophageal reflux disease) Esophagitis presence: esophagitis presence not specified Qualified Code(s): K21.9 - Gastro-esophageal reflux disease without esophagitis (2) Falls Encounter type: initial encounter Qualified Code(s): W19.XXXA - Unspecified fall, initial encounter (3) Contusion of knee, right Encounter type: initial encounter Qualified Code(s): S80.01XA - Contusion of right knee, initial encounter
[2020-03-28] MEDS: DOCUSATE SODIUM/SENNA 50/8.6MG TAB PO SCH (20:34)
[2020-03-29] MEDS: TRAMADOL HCL 50 MG TABLET PO PRN ×2 (00:01→07:36)
[2020-03-29] MEDS: LEVOTHYROXINE SODIUM 100 MCG TABLET PO SCH (05:54)
[2020-03-29] MEDS: ACETAMINOPHEN 500 MG TAB PO SCH (05:54)
[2020-03-29] MEDS: PANTOprazole 40 MG TAB PO SCH (07:37)
[2020-03-29] MEDS: CHOLECALCIFEROL 1,000 UNITS 25 MCG TAB PO SCH (07:37)
[2020-03-29] MEDS: CEROVITE ADV FORMULA TAB PO SCH (07:37)
[2020-03-29] MEDS: CYANOCOBALAMIN (VITAMIN B-12) 2,500 MCG TAB.SUBL SL SCH (07:37)
[2020-03-29] MEDS: LACTOBACILLUS ACIDOPHILUS (FLORANEX) TAB PO SCH (07:37)
[2020-03-29] MEDS: prednisoLONE acetate 1% OP SUSP 5 ML BTL OP SCH (07:38)
[2020-03-29] MEDS: LIDOCAINE 5% 1 PATCH TD SCH (07:38)
[2020-03-29] MEDS: PANCREAZE (LIPASE 10,500U) CAP PO SCH (07:39)
[2020-03-29] MEDS: VENLAFAXINE HCL 50 MG TAB PO SCH (07:39)
[2020-03-29] MEDS: KETOROLAC 0.5% OP SOLN 5 ML BTL OP SCH (07:39)
[2020-03-29] MEDS: GABAPENTIN 300 MG CAP PO SCH (07:39)
[2020-03-29] MEDS: IRON POLYSACCHARIDE COMPLEX 150 MG CAPSULE PO SCH (07:40)
[2020-03-29] MEDS: ENOXAPARIN INJ 40 MG/0.4 ML SYR SQ SCH (07:40)
--- NOTE | 2020-03-29 11:39 | Discharge Summary ---
Date of Service March 29, 2020 Admission HPI Per Admitting Provider Gris Avila is a jocelin 74 year old woman with a past medical history significant for stage IV metastatic appendiceal cancer (Her oncologist has suggested that she may not be a candidate for further chemo or surgeries but she has an appointment scheduled for this month with him in [facility]), chronic lower back pain and radiculopathy, hypertension, depression and insomnia who presented to me in clinic today for multiple falls. Patient is somewhat confused and daughter says that she has been much weaker and falling more frequently. She had been to ED last week for a fall and was found to have a fractured vertebral body. She has been getting outpatient PT and doing well until last Wednesday when she performed much more poorly at PT and was almost unable to participate, PT called daughter to express their concern and recommended that she see her PCP immediately. Over the weekend Ms Avila fell four more times despite constant surveillance and using a walker. Patient made first appointment with our office and after evaluation including physical exam with profound weakness and delirium and urinalysis showing + leukocytes, + leuk esterase, +blood, +Nitrites decided to send patient to emergency department for urgent evaluation and antibiotics. In ED patient was found to have an KELLY with creatinine elevated to 1.56 from baseline of 1 and hypoalbuminemia. Imaging was ordered showing no new fractures or subluxations beyond the known L5, Lumbar spine MRI as below 1. Superior endplate L5 marrow edema, consistent with acute/subacute fracture. 2. Multilevel spondylytic changes, most significant for a right posterior lateral disc osteophyte complex at the L3-4 level, and severe spinal stenosis at the L4-[address] also incidentally found a previously unknown pulmonary opacity measuring 15 mm in left lung apex and an increase in size in a previously documented thyroid nodule from 12 mm to 15 mm. Chest XR showing what appears to be a possible left sided pleural effusion and elevated right hemidiaphragm. Patient is feeling well, after IV fluids she is already feeling more clear of mind, denies any acute symptoms beyond her weakness and back pain. No fevers, no chills, no recent travel or sick contacts. Principal Diagnosis Fall due to dehydration, UTI Discharge Exam Constitutional WD/WN, vitals as above Eyes PERRL, conjunctivae normal, anicteric sclerae ENMT external ear and nose normal, oropharynx normal Neck trachea midline, no thyromegaly Respiratory normal respiratory effort, lungs clear to auscultation Cardiovascular RRR, no murmur, no edema Gastrointestinal (Abdomen) normal bowel sounds, soft, nontender, no hepatosplenomegaly Musculoskeletal Head/Neck/Chest: normocephalic, head atraumatic and neck supple Spine: + limited thoraco-lumbar ROM (due to pain) Extremities: extremities normal to inspection and strength 5/5 throughout; no cyanosis, no clubbing and no petechiae Skin no rashes, warm and dry Neurologic patellar DTR's 2+ bilat, sensation intact and PERRL, EOMI, accommodation nl, no face palsy, no dysarthria Psychiatric A+Ox3, euthymic affect Lymphatic no cervical or axillary lymphadenopathy Discharge Data Allergies Allergy/AdvReac Type Severity Reaction Status Date / Time oxycodone Allergy Intermediate DYSPNEA Verified 03/18/20 21:27 opium tincture AdvReac Intermediate HALLUCINATI Verified 02/22/20 14:48 ONS diphenhydramine AdvReac Hallucinati Verified 03/29/20 01:26 [From Benadryl] ng Ethanol AdvReac Intermediate HALLUCINATI Uncoded 02/22/20 14:48 ONS Consultations 03/18/20 21:23 ED Decision to Admit Stat 03/19/20 01:00 Consult Case Management - Discharge Planning Routine 03/19/20 17:35 Consult Orthopedic Surgery Routine 03/25/20 11:55 Consult Case Management - Discharge Planning Routine Procedures Performed Operation Date: 03/25/20 07:00 Actual Procedures p L4-S1 Lumbar Decompression Fusion,(Not Applicable) - Tony Monterroso DO s L5 Kyphoplasty(Not Applicable) - Tony Monterroso DO Ordered Studies 03/18/20 18:41 CT cervical spine wo con Stat CT head/brain wo con Stat MR lumbar spine wo/w con Stat 03/19/20 02:51 CT chest wo con Routine 03/25/20 07:45 FL fluoroscopy <1hr Routine FL lumbar spine 2-3V Routine Hospital Course (1) Falls: Gris Avila is a 74 year old woman with PMH significant for Stage IV appendiceal carcinoid cancer who has had progressive weakness and increasing falls who also presents with worsening confusion in the last week. Weakness and falls/Acute encephalopathy-likely secondary to h/o lumbar spinal stenosis and radiculopathy causing pain and weakness and then was taking new prescription for oxycodone which caused confusion, she got dehydrated, UTI doing much, much better, strength improving after treatment of UTI, IV hydration and stopping opioids now she is s/p L1 decompression and L5 kyphoplasty for more pain control and stability continue PT/OT, insurance would not approve [facility] but she was approved for [facility], will discharge today (2) Fracture, lumbar vertebra, compression: L5 vertebral compression fracture/Lumbar spinal stenosis with LLE radiculopathy-continues to have significant pain down the left and now some on the right lower extremity along with numbness and some mild weakness Worked with PT/OT -recommends rehab -Added lidocaine patch to the lower back -increased gabapentin to 300 mg po bid and added a 100 mg dose at 1400 -continue Tylenol 1000 mg p.o. scheduled every 8 hours for pain control and and effort to avoid opioids -added on Aleve 250mg po bid s/p L1 decompression and L5 kyphoplasty tolerated very well, less pain each day encourage PT/OT, plan for rehab Dr. Monterroso removed JULIANA drain, he agrees with discharge can follow up with Dr. Monterroso in a few weeks, d/c instructions provided (3) Contusion of knee, right: secondary to fall, not causing an acute issue (4) Weakness: as above, secondary to lumbar spinal stenosis (5) Lumbar back pain: as above, secondary to L5 comp fx s/p kyphoplasty on 03/25 (6) Hypothyroidism: Hypothyroidism/thyroid nodule-seen on imaging of the CT cervical spine Slow growth of thyroid nodule from previous scan 12mm to 15 mm TSH normal-does not appear to be related to her current presentation but may warrant outpatient workup -Continue levothyroxine (7) History of DVT (deep vein thrombosis): resume Lovenox once Hb is stable (8) Depression: continue Effexor (9) Anxiety: continue Effexor (10) Appendiceal carcinoid tumor: Metastatic appendiceal carcinoid-with history of numerous surgeries for debulking and resection of tumors performed by surgeon in [place] -Follow-up as an outpatient No acute issues (11) Pancreatic insufficiency: Pancreatic insufficiency-secondary to partial resection of pancreas -Continue Creon (12) Anemia: With Fe def anemia here, hgb 9.9, with reactive thrombocytosis to Fe-def anemia -giving Venofer 300mg IV daily x 3 doses-last dose will need to be ordered on 03/25 Hb dropped to 8.2 from 9, likely represents acute blood loss anemia in post op setting transfusion ordered by Dr. Monterroso, tolerating well, H/H -- 10.5 repeat H/H tomorrow (13) GERD (gastroesophageal reflux disease): GERD-stable, continue PPI (14) Spinal stenosis, lumbar region with neurogenic claudication: as above (15) Peripheral neuropathy: continue gabapentin (16) Complicated UTI (urinary tract infection): UTI-noted to have abnormal UA as an outpatient at the [facility] clinic. Urine culture is now back today growing E. coli that is pansensitive -Received 2 days of IV ceftriaxone and have since converted to Keflex 500 mg p.o. twice daily for total of 7 days-last dose 03/25 -No further urinary retention no fever, UTI is completely treated (17) KELLY (acute kidney injury): KELLY-resolved, creatinine down to 1.0 from 1.5 Likely pre renal, secondary to poor p.o. intake Also with history of urinary retention which may have been contributing-continue to bladder scan and straight cath for PVR greater than 350 mL's Total Time Total Time Spent Total Time Spent (In Minutes): 32 minutes Total Time Includes: Examination of the Patient, Discharge Planning, Medication Reconciliation and Communication With Other Providers (spoke with insurance about peer to peer) Discharge Plan Discharge Items Patient Disposition: Transfer Retirement Fac Reason For Visit: FALLS, KELLY, DEHYDRATION Discharge Diagnosis: Acute kidney injury, resolved UTI, resolved L5 compression fracture, L1 spinal stenosis, status post decompression at L1 and kyphoplasty L5 Weakness Condition on Discharge: Good Goals: improve strength and mobility stay well hydrated and well nourished Activity: Per Instructions section Lifting: No more than 5 pounds Bathing Comment: may shower, do not soak in tub Exercise/Sports: Gradually increase as tolerated Non-emergency contact: Primary Care Provider and Surgeon Call non-emergency contact if: you have any medication questions, your symptoms worsen, your pain is not controlled and you have a fever Follow-up/Referrals: Tony Monterroso DO [Surgeon] - (2 weeks) Ghassan Alva [Primary Care Provider] - (one week after discharge from [facility]) Diet: Regular Addtl Attending Provider Instructions: ACTIVITY RECOMMENDATIONS: SELF CARE INSTRUCTIONS AFTER THORACIC/LUMBAR FUSIONS 1. You may walk to your tolerance. It is good exercise for your legs and back. Expect some back and intermittent leg aches and pains. 2. You may perform "counter-top" level activities (make a sandwich, miladis with a project, etc.). 3. No bending or lifting of more than 10 pounds or back twisting of any nature (roll like a log when turning in bed). 4. You may ride in a car for 20-30 minutes at a time. No driving until after your first visit with your doctor. 5. Frequent changes of position and restricting sitting to 30 minutes at a time will help limit the amount of back spasms and stiffness you may experience. 6. You may discontinue the use of ambulatory aids (cane, crutches, etc.) once your strength and confidence allow. 7. You may hand bindery assembly worker the shower and let water strike your incision when you arrive home at least once daily. Do not take a tub bath, sit in a hot tub or go into a swimming pool until after your first recheck in the office. SPECIAL CARE INSTRUCTIONS: VERY IMPORTANT TO READ AND REVIEW A. Your surgical incision has been closed with a cosmetic suture under the skin that will dissolve in about 6 weeks. In 14 days, you can use a pair of clean scissors and cut the suture that is left outside of the skin at the ends of your incision. 1. The small skin tapes can be removed 7 days after surgery if they have not fallen off by that point. 2. You may keep the wound open to air as much as possible to promote healing after post-op day number 5 unless told otherwise by your doctor. 3. If you think the wound looks like it is becoming infected (redness or worsening drainage) and/or you are experiencing fever, chill or worsening back pain and muscle spasms, contact the office so that we may evaluate you as soon as possible. B. Complications are uncommon, but please contact us if you have any signs or symptoms of: 1. wound infection (fever higher than 102.5 degrees F, redness, separation of wound, drainage, or increasing pain from the incision) 2. blood clots in legs (pain, swelling, redness and warmth in legs) 3. urinary tract infection (fever higher than 102.5 degrees F, burning upon urination or increased frequency of urination) 4. nerve problems (inability to walk on your toes or heels, numbness, loss of bowel or bladder control) 5. any other symptoms that concern you C. Please call the office at if you have any concerns or questions about your operation or recovery. D. No smoking! Smoking drastically decreases the chance of a solid fusion. E. Do not take any anti-inflammatory medications (Indocin, Advil, Motrin, Aspirin, Naprosyn, etc.) as these may inhibit the chance of a solid fusion. Tylenol is okay to take for pain. MANAGING PAIN AFTER SPINAL SURGERY 1. Narcotic medication is intended for short-term use and will be provided for surgical pain. Surgical pain usually lasts for a period of 4-6 weeks. Narcotic medication includes Percocet, Vicodin, Darvocet, Tylenol #3 or Lortab. 2. Longer-term pain is more appropriately treated with non-narcotic medication such as Tylenol ES. 3. Muscle spasm is not appropriately treated with narcotics. Muscle relaxers such as Soma, Flexeril or Skelaxin can be used along with Tylenol ES. 4. Remember that we all live with some "aches and pains". This is not unusual or uncommon after an injury or as we get older. a. Back pain is expected and may include muscle spasms for 4 to 6 weeks after surgery. The pain should gradually improve. If the pain worsens for no apparent reason, please contact the office. b. Intermittent leg pain may also be experienced and should not be concerned about unless it worsens for no apparent reason. If so, please contact the office. 5. We will provide appropriate medication within the normal guidelines of their prescribed use. We will also be very cautious and aware of potential abuse and extended duration of patients' medication needs. a. Pain medications are for your comfort and to assist with sleep and rest so that the tissue can heal. They are not provided in order to return to normal activity and should not be used through the day. To do so or worsening pain at night can result from ongoing tissue damage and development of tolerance to the prescribed medicine. 6. Please allow 2-3 days to process refills. Prescriptions will not be mailed but must be picked up at the office. FOLLOW UP VISIT: Keep your scheduled follow-up appointment. Any questions, please call the office at . Pending Studies at Discharge: No Stand-Alone Forms: My [facility] Skilled Items Patient informed of condition?: Yes DNR: Yes Discharge Level of Care: Skilled Communicable Disease: No Discharge Prognosis: Stable Lines: None Urinary Catheter: No Medications and DC Order Prescriptions: New tramadol 50 mg Tablet 50 - 100 mg PO Q4H PRN (Reason: pain) 14 Days Qty: 60 RF: 0 gabapentin 300 mg Capsule 300 mg PO BID 30 Days Qty: 60 RF: 1 Continued levothyroxine 100 mcg tablet 100 mcg PO QAM RF: 0 zolpidem 10 mg tablet 10 mg PO HS RF: 0 pantoprazole 40 mg tablet,delayed release (DR/EC) 40 mg PO BID RF: 0 polysaccharide iron complex [Poly-Iron] 150 mg iron Capsule 150 mg PO QAM RF: 0 PreserVision AREDS-2 [id number] Capsule 1 tab PO BID RF: 0 Creon 36,000-114,000- 180,000 unit capsule,delayed release(DR/EC) 3 cap PO WM RF: 0 cyanocobalamin (vitamin B-12) [Vitamin B-12] 2,500 mcg Tablet, Sublingual 2,500 mcg SUBLINGUAL QAM RF: 0 lisinopril 20 mg tablet 20 mg PO QAM RF: 0 ketorolac 0.5 % drops 1 drp ophthalmic (eye) BID RF: 0 venlafaxine 100 mg tablet 100 mg PO BID RF: 0 prednisolone acetate 1 % drops,suspension 1 drp ophthalmic (eye) BID RF: 0 hydrocortisone 2.5 % ointment 1 applic TOPICAL BID RF: 0 cholecalciferol (vitamin D3) [Vitamin D3] 25 mcg (1,000 unit) Tablet 25 mcg PO QAM RF: 0 Align 4 mg Capsule 4 mg PO QAM RF: 0 acetaminophen-codeine [Tylenol-Codeine #3] 300-30 mg tablet 1 tab PO Q4H PRN (Reason: pain) Qty: 15 RF: 0 Discontinued gabapentin 100 mg capsule 100 mg PO BID RF: 0 Discharge Orders: Discharge Order (Routine); Ordered 03/29/20 Ordered By: Joshua Negrete Admission Data Admit Date/Time: 08/10/20 22:08 Attending Provider: Joshua Negrete Admit Provider: Tony Monterroso Primary Care Provider: Ghassan Alva Other Providers: [facility] ; Nancy Jones at [place] ; Keagan Heath ; Tony Monterroso Other Interventions: Discharge Summary Assessment (RN) Last Done: 03/29/20 11:40 Coding Level of Care Code D/C Day Management >30 mins Diagnoses Falls W19.[id number] Encounter type: initial encounter Fracture, lumbar vertebra, compression S32.000A Contusion of knee, right S80.01XA Encounter type: initial encounter Weakness R53.1 Lumbar back pain M54.5 Hypothyroidism E03.9 History of DVT (deep vein thrombosis) Z86.718 Depression F32.9 Anxiety F41.9 Appendiceal carcinoid tumor D3A.020 Pancreatic insufficiency K86.89 Anemia D64.9 GERD (gastroesophageal reflux disease) K21.9 Esophagitis presence: esophagitis presence not specified Spinal stenosis, lumbar region with neurogenic claudication M48.062 Peripheral neuropathy G62.9 Complicated UTI (urinary tract infection) N39.0 KELLY (acute kidney injury) N17.9
== END 2020-03-29 13:02 | DRG 459 ==
LOC: ED 15:11 → 3N 22:08 → SUATTDRO 22:08 → 3N 03-19 00:49

== ENCOUNTER 2022-01-15 12:52 | Observation (INO) ==
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
[2022-01-15 13:46] LABS: iSTAT Creatinine 1.3 mg/dl (0.6-1.3); iSTAT Hemoglobin 9.2 g/dl (12.0-16.0); iSTAT Ionized Calcium 1.2 mmol/l (1.12-1.32); iSTAT Potassium 5.4 mmol/L (3.3-5.0)
[2022-01-15 13:56] LABS: INR 1.1 (0.9-1.1); Partial Thromboplastin Ratio 0.8; Partial Thromboplastin Time 21.9 Seconds (21.0-31.0); Prothrombin Time 11.4 Seconds (9.0-12.0)
[2022-01-15 14:01] LABS: Basophils # (auto) 0.03 K/uL (0-0.2); Basophils % (auto) 0.3 %; Eosinophils # (auto) 0.05 K/uL (0-0.5); Eosinophils % (auto) 0.4 %; Hematocrit (blood only) 26.5 % (37-47); Immature Granulocytes # (auto) 0.03 K/uL (0.00-0.02); Immature Granulocytes % (auto) 0.3 %; Lymphocytes # (auto) 1.27 K/uL (1.2-3.4); Lymphocytes % (auto) 10.9 %; Mean Corpuscular Hemoglobin 24.5 pg (25-34); Mean Corpuscular Hgb Conc 30.2 g/dL (32-36); Mean Corpuscular Volume 81.3 fL (80-100); Mean Platelet Volume 9.6 fL (7.4-10.4); Monocytes # (auto) 1.08 K/uL (0.11-0.59); Monocytes % (auto) 9.3 %; Neutrophils # (auto) 9.15 K/uL (1.4-6.5); Neutrophils % (auto) 78.8 %; Platelet Count 598 K/uL (130-400); RDW Coefficient of Variation 17.6 % (11.5-14.5); RDW Standard Deviation 52.7 fL (36.4-46.3); Red Blood Count 3.26 M/uL (4.2-5.4); White Blood Count 11.61 K/uL (4.8-10.8)
[2022-01-15] MEDS ORDERED: OPTIRAY 320 125ml IV ONE (14:03)
[2022-01-15 14:13] LABS: Albumin Level 3.2 gm/dl (3.4-5.0); BUN Creatinine Ratio 15.8 (10-20); Bilirubin,Total 0.3 mg/dl (0.2-1.0); Calcium 8.9 mg/dl (8.5-10.1); Creatinine Clr Calc Pharmacy 36.5 ml/min; Est GFR (African American) 50.1 ml/min; Est GFR (Non-African American) 43.3 ml/min; Globulin 3.1 gm/dl (2.5-4.0); Potassium 4.7 mmol/L (3.5-5.1); Total Protein 6.3 gm/dl (6.0-8.3)
[2022-01-15 14:16] LABS: Troponin I High Sensitivity 3.8 pg/ml (0-14)
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
[2022-01-15 14:30] LABS: Appearance Urine Clear (Clear); Bilirubin Urine Negative (Negative); Blood Urine Negative (Negative); Color Urine Yellow; Glucose Urine UA Negative (Negative); Ketones Urine Negative (Negative); Leukocyte Esterase Urine Negative (Negative); Nitrite Urine Negative (Negative); Protein Urine Negative (Negative); Specific Gravity Urine 1.012 (1.000-1.030); Urobilinogen Urine Negative (Negative); pH Urine 6.5 (4.5-7.5)
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
[2022-01-15 14:54] LABS: Amphetamines+Metham, Urine Neg (Neg); Barbiturates, Urine Neg (Neg); Benzodiazepine, Urine Neg (Neg); Cocaine, Urine Neg (Neg); MDMA (Ecstacy), Urine Neg (Neg); Methadone, Urine Neg (Neg); Opiate, Urine Neg (Neg); Phencyclidine, Urine Neg (Neg)
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
[2022-01-15] MEDS ORDERED: ONDANSETRON INJ 2 MG/ML 2 ML VIAL IV PRN (18:10)
[2022-01-15] MEDS ORDERED: PANCREAZE (LIPASE 10,500U) CAP PO PRN (18:46)
[2022-01-15] MEDS: DEXTROSE 5% 1,000 ML IV SCH ×2 (18:46→22:06)
[2022-01-15] MEDS: HEPARIN SOD 5,000 UNIT/0.5 ML VIAL SQ SCH (21:56)
[2022-01-15] MEDS: GABAPENTIN 300 MG CAP PO SCH (21:56)
[2022-01-15] MEDS: PANCREAZE (LIPASE 10,500U) CAP PO SCH (21:56)
[2022-01-15] MEDS: CEROVITE ADV FORMULA TAB PO SCH (21:56)
[2022-01-15] MEDS: PANTOprazole 40 MG TAB PO SCH (21:57)
[2022-01-15] MEDS: VENLAFAXINE HCL 50 MG TAB PO SCH (21:57)
[2022-01-16] MEDS: ACETAMINOPHEN 325 MG TAB PO PRN ×2 (01:32→15:29)
[2022-01-16 02:07] LABS: Basophils # (auto) 0.02 K/uL (0-0.2); Basophils % (auto) 0.3 %; Eosinophils # (auto) 0.12 K/uL (0-0.5); Eosinophils % (auto) 1.6 %; Hematocrit (blood only) 26.6 % (37-47); Hemoglobin 7.9 g/dL (12.0-16.0); Immature Granulocytes # (auto) 0.01 K/uL (0.00-0.02); Immature Granulocytes % (auto) 0.1 %; Lymphocytes # (auto) 1.37 K/uL (1.2-3.4); Lymphocytes % (auto) 17.8 %; Mean Corpuscular Hemoglobin 23.9 pg (25-34); Mean Corpuscular Hgb Conc 29.7 g/dL (32-36); Mean Corpuscular Volume 80.6 fL (80-100); Mean Platelet Volume 9.2 fL (7.4-10.4); Monocytes # (auto) 0.83 K/uL (0.11-0.59); Monocytes % (auto) 10.8 %; Neutrophils # (auto) 5.35 K/uL (1.4-6.5); Neutrophils % (auto) 69.4 %; Platelet Count 598 K/uL (130-400); RDW Coefficient of Variation 17.5 % (11.5-14.5)
[2022-01-16 02:22] LABS: BUN Creatinine Ratio 14.3 (10-20); Calcium 8.5 mg/dl (8.5-10.1); Creatinine Clr Calc Pharmacy 34.5 ml/min; Est GFR (African American) 47.3 ml/min; Est GFR (Non-African American) 40.8 ml/min; Potassium 4.3 mmol/L (3.5-5.1)
[2022-01-16 02:23] LABS: Hypochromasia Present
[2022-01-16] MEDS ORDERED: LEVOTHYROXINE SODIUM 88 MCG TABLET PO SCH (06:30)
[2022-01-16] MEDS ORDERED: lisinopril 20 MG TAB PO SCH (09:00)
[2022-01-16] MEDS ORDERED: CHOLECALCIFEROL 1,000 UNITS 25 MCG TAB PO SCH (09:00)
[2022-01-16] MEDS: HEPARIN SOD 5,000 UNIT/0.5 ML VIAL SQ SCH (09:13)
[2022-01-16] MEDS: PANCREAZE (LIPASE 10,500U) CAP PO SCH ×2 (09:13→12:17)
[2022-01-16] MEDS: GABAPENTIN 300 MG CAP PO SCH (09:14)
[2022-01-16] MEDS: VENLAFAXINE HCL 50 MG TAB PO SCH (09:14)
[2022-01-16] MEDS: CEROVITE ADV FORMULA TAB PO SCH (09:14)
[2022-01-16] MEDS: PANTOprazole 40 MG TAB PO SCH (09:14)
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
--- NOTE | 2022-01-16 18:00 | Billing Data ---
Date of Service January 16, 2022 Coding Level of Care Code 73498 OBS Care - Discharge
--- NOTE | 2022-01-17 05:56 | Electrocardiogram Report ---
Test Reason : Blood Pressure : / mmHG Vent. Rate : 078 BPM Atrial Rate : 078 BPM P-R Int : 116 ms QRS Dur : 084 ms QT Int : 374 ms P-R-T Axes : 018 -52 -01 degrees QTc Int : 426 ms Normal sinus rhythm Left anterior fascicular block Anterior infarct , age undetermined Nonspecific T wave abnormality Abnormal ECG When compared with ECG of 18-MAR-2020 21:00, Nonspecific T wave abnormality, worse in Anterior leads Confirmed by Ken Broussard ([id number]) on 01/17/2022 5:56:18 AM Referred By: REFERRED SELF Confirmed By:Ken Broussard
--- NOTE | 2022-01-17 06:12 | Electrocardiogram Report ---
Test Reason : Blood Pressure : / mmHG Vent. Rate : 068 BPM Atrial Rate : 068 BPM P-R Int : 122 ms QRS Dur : 088 ms QT Int : 398 ms P-R-T Axes : 013 -53 007 degrees QTc Int : 423 ms Normal sinus rhythm Low voltage QRS Left anterior fascicular block Possible Anterolateral infarct (cited on or before 15-JAN-2022) Nonspecific T wave abnormality Abnormal ECG When compared with ECG of 15-JAN-2022 13:10, No significant change was found Confirmed by Ken Broussard ([id number]) on 01/17/2022 6:11:25 AM Referred By: REFERRED SELF Confirmed By:Ken Broussard
== END 2022-01-16 18:06 | disposition home or self-care (01) ==
LOC: EDINP 12:52 → ED 12:52 → SUATTDRO 15:42 → 2N 21:14